=== PATIENT | female | born 1975 | race Two or more races ===

== ENCOUNTER 2020-02-22 11:28 | Outpatient (REF) | payer OTHER, SELFPAY | END 2020-02-22 11:29 | disposition home or self-care (01) | LOC: HO.LAB 11:28 | PROVIDERS: Visit Provider Internal Medicine | DX: Z20.828 Contact with and (suspected) exposure to other viral communicable diseases (principal) | CPT/HCPCS: C9803; U0003 ==

== ENCOUNTER 2020-03-06 10:32 | Outpatient (REF) | payer OTHER, SELFPAY | END 2020-03-06 10:33 | disposition home or self-care (01) | LOC: HO.LAB 10:32 | PROVIDERS: Visit Provider Internal Medicine | DX: Z20.822 Contact with and (suspected) exposure to COVID-19 (principal) | CPT/HCPCS: 36415; C9803; U0003 ==

== ENCOUNTER 2022-07-25 14:34 | Outpatient (REF) | payer OTHER, SELFPAY ==
--- NOTE | ~2022-07-25 | XR_ITS ---
EXAMINATION: Bilateral hand and wrist x-ray CLINICAL INFORMATION: Rheumatoid arthritis COMPARISON: None. TECHNIQUE: 3 views of each hand and wrist FINDINGS: Left: The bones are osteopenic. Bone alignment is normal. No fracture or dislocation. The joint spaces are normal. No erosions. Soft tissues are normal. Right: The bones are osteopenic. Bone alignment is normal. No fracture or dislocation. The joint spaces are normal. No erosions. Normal soft tissues. XR/XR hand wrist RT IMPRESSION: Osteopenia.
--- NOTE | ~2022-07-25 | XR_ITS ---
EXAMINATION: Bilateral shoulder x-ray CLINICAL INFORMATION: Rheumatoid arthritis COMPARISON: None. TECHNIQUE: 4 views of each shoulder FINDINGS: Right: Bone alignment is normal. No fracture or dislocation. Normal joint spaces. Normal soft tissues. Left: Bone alignment is normal. No fracture or dislocation. Normal glenohumeral joint. Mild arthritis at the acromioclavicular joint. Normal soft tissues. XR/XR shoulder LT min 2V IMPRESSION: Mild arthritis at the left acromioclavicular joint.
--- NOTE | ~2022-07-25 | XR_ITS ---
EXAMINATION: Bilateral foot and ankle x-ray CLINICAL INFORMATION: Rheumatoid arthritis COMPARISON: None. TECHNIQUE: 3 views of both feet and ankles FINDINGS: Right foot: Bone alignment is normal. No fracture or dislocation. Erosion of the third metacarpal head The joint spaces are normal. Small plantar calcaneal spur. Soft tissues are normal. Right ankle: Bone alignment is normal. No fracture or dislocation. Normal ankle mortise. Normal soft tissues. Left foot: Bone alignment is normal. Bones are osteopenic. There is erosion of the fourth metacarpal head. Joint spaces are normal. Soft tissues are normal. Left ankle: Bone alignment is normal. No fracture or dislocation. The ankle mortise is normal. Soft tissues are normal. XR/XR foot RT min 3V IMPRESSION: Right: Erosion of the third metacarpal head. Left: Erosion of the left fourth metacarpal head.
--- NOTE | ~2022-07-25 | XR_ITS ---
EXAMINATION: Bilateral foot and ankle x-ray CLINICAL INFORMATION: Rheumatoid arthritis COMPARISON: None. TECHNIQUE: 3 views of both feet and ankles FINDINGS: Right foot: Bone alignment is normal. No fracture or dislocation. Erosion of the third metacarpal head The joint spaces are normal. Small plantar calcaneal spur. Soft tissues are normal. Right ankle: Bone alignment is normal. No fracture or dislocation. Normal ankle mortise. Normal soft tissues. Left foot: Bone alignment is normal. Bones are osteopenic. There is erosion of the fourth metacarpal head. Joint spaces are normal. Soft tissues are normal. Left ankle: Bone alignment is normal. No fracture or dislocation. The ankle mortise is normal. Soft tissues are normal. XR/XR ankle RT min 3V IMPRESSION: Right: Erosion of the third metacarpal head. Left: Erosion of the left fourth metacarpal head.
--- NOTE | ~2022-07-25 | XR_ITS ---
EXAMINATION: Bilateral hand and wrist x-ray CLINICAL INFORMATION: Rheumatoid arthritis COMPARISON: None. TECHNIQUE: 3 views of each hand and wrist FINDINGS: Left: The bones are osteopenic. Bone alignment is normal. No fracture or dislocation. The joint spaces are normal. No erosions. Soft tissues are normal. Right: The bones are osteopenic. Bone alignment is normal. No fracture or dislocation. The joint spaces are normal. No erosions. Normal soft tissues. XR/XR hand wrist LT IMPRESSION: Osteopenia.
--- NOTE | ~2022-07-25 | XR_ITS ---
EXAMINATION: Bilateral foot and ankle x-ray CLINICAL INFORMATION: Rheumatoid arthritis COMPARISON: None. TECHNIQUE: 3 views of both feet and ankles FINDINGS: Right foot: Bone alignment is normal. No fracture or dislocation. Erosion of the third metacarpal head The joint spaces are normal. Small plantar calcaneal spur. Soft tissues are normal. Right ankle: Bone alignment is normal. No fracture or dislocation. Normal ankle mortise. Normal soft tissues. Left foot: Bone alignment is normal. Bones are osteopenic. There is erosion of the fourth metacarpal head. Joint spaces are normal. Soft tissues are normal. Left ankle: Bone alignment is normal. No fracture or dislocation. The ankle mortise is normal. Soft tissues are normal. XR/XR ankle LT min 3V IMPRESSION: Right: Erosion of the third metacarpal head. Left: Erosion of the left fourth metacarpal head.
--- NOTE | ~2022-07-25 | XR_ITS ---
EXAMINATION: Bilateral foot and ankle x-ray CLINICAL INFORMATION: Rheumatoid arthritis COMPARISON: None. TECHNIQUE: 3 views of both feet and ankles FINDINGS: Right foot: Bone alignment is normal. No fracture or dislocation. Erosion of the third metacarpal head The joint spaces are normal. Small plantar calcaneal spur. Soft tissues are normal. Right ankle: Bone alignment is normal. No fracture or dislocation. Normal ankle mortise. Normal soft tissues. Left foot: Bone alignment is normal. Bones are osteopenic. There is erosion of the fourth metacarpal head. Joint spaces are normal. Soft tissues are normal. Left ankle: Bone alignment is normal. No fracture or dislocation. The ankle mortise is normal. Soft tissues are normal. XR/XR foot LT min 3V IMPRESSION: Right: Erosion of the third metacarpal head. Left: Erosion of the left fourth metacarpal head.
--- NOTE | ~2022-07-25 | XR_ITS ---
EXAMINATION: Bilateral shoulder x-ray CLINICAL INFORMATION: Rheumatoid arthritis COMPARISON: None. TECHNIQUE: 4 views of each shoulder FINDINGS: Right: Bone alignment is normal. No fracture or dislocation. Normal joint spaces. Normal soft tissues. Left: Bone alignment is normal. No fracture or dislocation. Normal glenohumeral joint. Mild arthritis at the acromioclavicular joint. Normal soft tissues. XR/XR shoulder RT min 2V IMPRESSION: Mild arthritis at the left acromioclavicular joint.
== END 2022-07-25 14:35 | disposition home or self-care (01) ==
LOC: HO.XRAY 14:34
PROVIDERS: Visit Provider Student in an Organized Health Care Education/Training Program
DX: M05.79 Rheumatoid arthritis with rheumatoid factor of multiple sites without organ or systems involvement (principal)
CPT/HCPCS: 73030; 73110; 73130; 73610; 73630

== ENCOUNTER 2022-09-18 15:25 | Emergency (ER) | payer OTHER, SELFPAY ==
[2022-09-18 15:28] VITALS: BP 125/83; PULSE 97; RESP 16; TEMP 36.7; O2SAT 94; BMI 25.0
--- NOTE | 2022-09-18 15:28 | ED.GENADULT ---
HPI - General Adult General Chief complaint: General Medical Stated complaint: rash on hand Time Seen by Provider: 09/18/22 15:37 Source: patient and RN notes reviewed Mode of arrival: ambulatory Limitations: no limitations History of Present Illness HPI narrative: This is a 47-year-old female presenting to the emergency department with complaints of bilateral hand rash x3 days. Patient reports that the rash is very itchy, denies pain. She went to [facility] several days ago. Denies any fevers chills difficulty breathing, shortness of breath, rashes anywhere else. No abdominal pain nausea vomiting or diarrhea. She otherwise is feeling well. No other complaints or concerns at this time. MD complaint: Rash Onset (ago): day(s) Location: upper extremity Radiation: non-radiation Relieving factors: none Exacerbating factors: none Associated symptoms: rash Treatments prior to arrival: none Related Data Home Medications Medication Instructions Recorded Confirmed acetaminophen 325 mg tablet 325 mg PO QID PRN 07/16/22 (Tylenol) ferrous sulfate 325 mg (65 mg 325 mg PO BID 07/16/22 iron) tablet levothyroxine 50 mcg tablet 50 mcg PO DAILY 07/16/22 Previous Rx's Medication Instructions Recorded adalimumab 40 mg/0.4 mL 40 mg (0.4 mL) subcut Q2W #6 ea 07/25/22 subcutaneous pen kit (Humira(CF) Pen) prednisone 5 mg tablet See Rx Instructions PO .COMPLEX 07/25/22 #70 tabs clotrimazole 1 % topical ointment 1 appl topical BID 2 weeks #56.7 09/18/22 grams Allergies Allergy/AdvReac Type Severity Reaction Status Date / Time No Known Allergies Allergy Verified 09/18/22 15:27 Review of Systems Review of Systems: Constitutional: No Weight loss, No Fever, No Chills ENT/Mouth: No Ear Pain, No Nasal Congestion, No Sinus Pain, No Hoarseness, No sore throat, No Rhinorrhea, No Swallowing Difficulty Cardiovascular: No Chest Pain, No SOB Respiratory: No Cough, No Sputum, No Wheezing Gastrointestinal: No Nausea, No Vomiting, No Diarrhea, No Constipation, No Abdominal pain Genitourinary: No Dysuria, No Urinary Frequency, No Hematuria, No Urinary Incontinence/retention, No Urgency, No Flank Pain Musculoskeletal: No joint pain, No Myalgias, No Joint Swelling Skin: No Skin Lesions, + rash Neuro: No Weakness, No Numbness, No Paresthesias Yes all other systems are reviewed and are negative Constitutional: Constitutional: Reports as per [facility] Past Medical History Medical History Acquired hypothyroidism Anemia Rheumatoid arthritis Surgical History Hx of tubal ligation Family History Family History Maternal Grandmother No problems noted. Paternal Grandmother No problems noted. Sister Malignant tumor of breast, Onset Age: 39 Mother No problems noted. 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 [employer] Physical Exam ED Vital Signs: Vital Signs - 24 hr 09/18/22 15:28 Temperature 98.0 F Pulse Rate 97 Respiratory Rate 16 Blood Pressure 125/83 Pulse Oximetry 94 Oxygen Delivery Method Room Air BMI result Body Mass Index 25.0 Const General: cooperative, comfortable and no acute distress Orientation/consciousness: patient oriented x3 Limitations: no limitations [facility] Head: Yes normal to inspection, Yes normocephalic and Yes atraumatic Ears: hearing grossly normal bilaterally General nose exam: Normal external nose present Face and sinus: Yes normal facial exam Mouth: Normal oral and palatal mucosa present, oropharynx normal and moist mucous membranes Throat: Yes posterior oropharynx normal Eyes General: appearance normal, both eyes and all related structures Eyelids: Yes eyelids normal Conjunctivae: conjunctivae normal Sclerae: sclerae normal Pupils: Equal, round and reactive pupils present EOM: EOMs intact bilaterally Neck Neck: Yes normal visual inspection, Yes full ROM and Yes no lymphadenopathy Lymphatic: no lymphadenopathy noted Chest Chest palpation & inspection: normal inspection of the chest Resp Effort & Inspection: normal respiratory effort and able to speak in complete sentences Auscultation: clear to auscultation bilaterally, no crackles, no rales, no rhonchi and no wheezes Cardio Rate: regular rate Rhythm: regular rhythm Heart sounds: S1 normal heart sound present and S2 normal heart sound present GI Inspection: Yes normal to inspection Skin Other: Dorsal aspect bilateral hands with multiple circular raised 2 cm and rash with central clearing. Excoriations noted. No surrounding erythema or warmth. Neuro General: patient oriented x3 and moves all extremities Cranial nerves: Yes Equal, round and reactive pupils present Extrem General: Yes normal to inspection Right upper extremity: normal to inspection Left upper extremity: normal to inspection Right lower extremity: normal to inspection Left lower extremity: normal to inspection Medical Decision Making Medical Decision Making MDM Narrative: 47-year-old female presenting to the emergency department with complaints of bilateral hand rash x3 days. Recently traveled to . No new soaps, lotions, or detergents. Rash on bilateral hands rounded and raised, appears to be fungal. Patient has no difficulty swallowing or breathing. No other rashes anywhere else. Vital signs stable. No history of similar symptoms in the past. Will treat with topical antifungal. Discussed return precautions. Patient stable for discharge. Differential Diagnosis Differential Diagnoses: The differential diagnosis associated with the presentation includes tinea corporis, cellulitis, contact dermatitis, anaphylaxis Admission/Observation Consideration of admission/observation: Escalation of care including admission/observation considered Discharge Plan Discharge Clinical Impression: Tinea corporis, Rash Patient Disposition: Home, Self-Care Instructions: Tinea Corporis (ED) Additional Instructions: Your rash appears to be fungal. Please use topical antifungal cream as directed. This is contagious, please be mindful when exposing others. Wash her hands frequently. If any new or worsening symptoms occur, including but not limited to worsening rash, fevers, chills please return for re-evaluation. Follow-up with your primary care physician. Prescriptions: New clotrimazole 1 % ointment 1 appl topical BID 14 Days Qty: 56.7 0RF No Action levothyroxine 50 mcg tablet 50 mcg PO DAILY ferrous sulfate 325 mg (65 mg iron) tablet 325 mg PO BID acetaminophen [Tylenol] 325 mg tablet 325 mg PO QID PRN Humira(CF) Pen 40 mg/0.4 mL pen injector kit 40 mg subcut Q2W Qty: 6 2RF prednisone 5 mg tablet See Rx Instructions PO .COMPLEX Qty: 70 0RF Rx Instructions: Take 4 tabs by mouth once daily with breakfast for 1 week then 3 tabs daily for 1 week then 2 tabs daily for 1 week then 1 tab daily for 1 week then stop Interventions: ED Discharge Assessment Last Done: 09/18/22 15:50 Discharge Date/Time: 09/18/22 15:51
== END 2022-09-18 15:51 | disposition home or self-care (01) ==
PROVIDERS: Emergency Provider Emergency Medicine
DX: B35.4 Tinea corporis (principal); R21 Rash and other nonspecific skin eruption
CPT/HCPCS: 99282; 99283

== ENCOUNTER 2022-10-15 14:57 | Outpatient (REF) | payer OTHER, SELFPAY ==
[2022-10-15 15:23] LABS: MANUAL DIFF FLAG NO
[2022-10-15 15:25] LABS: Basophils Percent Auto 0.1 % (0-2); Eosinophils Absolute Auto 0.1 X10*3/uL (0.0-0.4); Eosinophils Percent Auto 1.1 % (0-4); Hematocrit 39.3 % (37.0-47.0); Hemoglobin 12.9 g/dl (12.0-16.0); Imm Gran Abs Auto 0.03 X10*3/uL (0.00-0.03); Imm Gran Pct Auto 0.4 % (0.0-0.4); Lymphocytes Absolute Auto 1.4 X10*3/uL (1.2-4.9); Lymphocytes Percent Auto 19.8 % (20-40); Mean Corpuscular HGB Conc 32.8 g/dl (31.0-35.0); Mean Corpuscular Hemoglobin 28.4 pg (27.0-33.0); Mean Corpuscular Volume 86.4 fL (80.0-98.0); Mean Platelet Volume 9.7 fL (9.4-12.3); Monocytes Absolute Auto 0.3 X10*3/uL (0.1-1.2); Monocytes Percent Auto 3.8 % (2-11); Neutrophils Absolute Auto 5.3 x10*3/uL (2.0-8.3); Neutrophils Percent Auto 74.8 % (45-73); Platelet Count 271 X10*3/uL (160-400); Red Blood Count 4.55 X10*6/uL (4.20-5.50); Red Cell Distribution Width 12.5 % (11.0-16.0); White Blood Count 7.1 X10*3/uL (4.8-10.8)
[2022-10-15 16:06] LABS: Alanine Aminotransferase 93 U/L (0-31); Alkaline Phosphatase 145 U/L (39-117); Anion Gap 11 (12-20); Aspartate Amino Transferase 48 U/L (5-31); Bilirubin Total 0.2 mg/dL (0.0-1.0); Blood Urea Nitrogen 13 mg/dL (9-16); Calcium 9.9 mg/dL (8.4-10.2); Carbon Dioxide 25 mmol/L (22-29); Chloride 108 mmol/L (96-108); Estimated Glomerular Filt Rate > 60; Glucose Random 188 mg/dL (60-115); Potassium 4.3 mmol/L (3.3-5.1); Sodium 140 mmol/L (135-145); Total Protein 7.8 g/dL (6.5-8.0)
[2022-10-15 16:31] LABS: Rheumatoid Factor 608.9 IU/mL (<15.0)
[2022-10-15 17:05] LABS: Erythrocyte Sedimentation Rate 23 MM/HR (0-20)
[2022-10-16 05:19] LABS: HBS Num1 0.07 mIU/mL (0-7.99); HBc Num1 0.11 S/CO (0.00-0.79); HBsAGNum1 0.43 S/CO (0.00-0.99); Hepatitis A Antibody IgM 0.47 Index (0-0.79); Hepatitis B Core Antibody Nonreactive (Nonreactive); Hepatitis B Surface Antigen Negative (Negative); ~HepC Num1 0.14 S/CO (0.00-0.79); ~Hepatitis A Antibody IgM Nonreactive (Nonreactive); ~Hepatitis B Surface Antibody NONREACTIVE (Nonreactive); ~Hepatitis C Antibody Nonreactive (Nonreactive)
[2022-10-16 12:24] LABS: Cyclic Citrullinated Peptide >250 UNITS
[2022-10-16 14:23] LABS: Prot Elec - Alpha1 0.3 g/dL (0.2-0.3); Prot Elec - Alpha2 0.6 g/dL (0.5-0.9); Prot Elec - Beta 1 0.4 g/dL (0.4-0.6); Prot Elec - Beta 2 0.4 g/dL (0.2-0.5); Prot Elec - Gamma 1.4 g/dL (0.8-1.7); Prot Elec - Total Protein 7.1 g/dL (6.1-8.1)
[2022-10-16 17:03] LABS: IgA 317 mg/dL (47-310); IgG 1632 mg/dL (600-1640); IgM 195 mg/dL (50-300)
[2022-10-17 12:23] LABS: TS Negative Control Passed; TS Panel A 1; TS Panel B 3; TS Positive Control Passed; TSpotTB Negative (Negative)
== END 2022-10-15 14:58 | disposition home or self-care (01) ==
LOC: HO.LAB 14:57
PROVIDERS: Visit Provider Student in an Organized Health Care Education/Training Program
DX: Z11.7 Encounter for testing for latent tuberculosis infection (principal); Z11.59 Encounter for screening for other viral diseases; M06.9 Rheumatoid arthritis, unspecified; Z72.89 Other problems related to lifestyle
CPT/HCPCS: 36415; 80053; 82784; 84165; 85025; 85652; 86140; 86200; 86334; 86431; 86481; 86704; 86706; 86709; 86803; 87340

== ENCOUNTER 2022-10-21 15:56 | Outpatient (AMB) | payer OTHER, SELFPAY ==
--- NOTE | 2022-10-21 15:58 | MHC.OFFVIS ---
Intake Vital Signs 10/21/22 15:59 Height 5 ft 3 in Weight 140 lb 3.424 oz BMI 24.8 BP 130/88 Blood Pressure Location Rt brachial Position Sitting Temp 97.4 F Temp Source Skin Intake Visit Reasons: Rheumatoid Arthritis Intake Note: Pt seen today for RA follow up. Shipping Processor Required: No Accompanied by: Self / Same As Patient Allergies No Known Allergies Allergy (Verified 10/21/22 16:03) Medication List - Last Reconciled 10/21/22 by Justo Avalos MD acetaminophen (Tylenol) 325 mg PO QID PRN adalimumab (Humira(CF) Pen) 40 mg (0.4 mL) subcut Q2W clotrimazole 1% 1 appl topical BID 2 weeks ferrous sulfate 325 mg PO BID levothyroxine 50 mcg PO DAILY prednisone 5 mg PO DAILY HPI HPI Comments History of Present Illness Details This is a 47-year-old female with seropositive RA who returns for follow-up. Last month she presented to the ER with a skin rash on her hands, the rash was deemed fungal which cleared with topical antifungal cream. She states that she is 1 week late on her Humira injection as she did not receive the refill. She has been taking prednisone 5 mg daily. Over the last week she has been having left wrist pain and swelling. She also has bilateral ankle pain. Doing well otherwise. Denies any recent illnesses or fevers. Denies any recent alcohol consumption. Initial history: This is a 47-year-old female with seropositive rheumatoid arthritis who presents as a new patient. 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 Patient stated that she was diagnosed with rheumatoid arthritis more than 10 years ago she. She was on Tylenol, NSAIDs and prednisone for many years until about 4 years ago when she was started on hydroxychloroquine which she could not tolerate due to GI upset, she was also on methotrexate for a few months and could not tolerated due to GI upset. She was started on Humira about 2 years ago which was effective and she no longer needed prednisone chronically. She would require prednisone tapers a few times a year. Today patient is complaining of bilateral shoulder pain and morning stiffness lasting around 30 minutes, this started about 3 weeks ago. She denies any side effects related to Humira. She denies any shortness of breath. She is unaware of any family history of autoimmune rheumatic disease. Denies history of DVT/PE. [facility] Medical History Acquired hypothyroidism Anemia Rheumatoid arthritis Surgical History Hx of tubal ligation Family History Maternal Grandmother No problems noted. Paternal Grandmother No problems noted. Sister Malignant tumor of breast, Onset Age: 39 Mother No problems noted. 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[employer] Review of Systems [facility] Reports arthralgias, Reports joint swelling and Reports stiffness Physical Exam Vital Signs: Last Vital Signs Temp 97.4 F 10/21/22 15:59 BP 130/88 10/21/22 15:59 BMI result Body Mass Index 24.8 Const General: cooperative, healthy appearing and comfortable Nutritional Appearance: average body habitus Orientation/consciousness: patient oriented x3 Limitations: no limitations HEENT Head: Yes normocephalic and Yes atraumatic Mouth: moist mucous membranes Resp Effort & Inspection: normal respiratory effort and able to speak in complete sentences Auscultation: clear to auscultation bilaterally Cardio Rate: regular rate Rhythm: regular rhythm GI Inspection: No distended Palpation (GI): Soft to palpation and nontender Neuro General: patient oriented x3 Extrem Other: Right wrist pain with full extension Right hand: no MCP or PIP tenderness. Negative MCP squeeze test. few subluxed PIPs Z deformities of her thumbs Left wrist swelling and tenderness Negative MCP squeeze test Normal range of motion of both elbows and shoulders. Negative empty can test, infraspinatus test bilaterally Right medial malleolus tenderness Negative MTP squeeze test bilaterally Results Reviewed Results Reviewed: FINDINGS: Right: Bone alignment is normal. No fracture or dislocation. Normal joint spaces. Normal soft tissues. Left: Bone alignment is normal. No fracture or dislocation. Normal glenohumeral joint. Mild arthritis at the acromioclavicular joint. Normal soft tissues.? XR/XR shoulder LT min 2V IMPRESSION: Mild arthritis at the left acromioclavicular joint.? ECHNIQUE: 3 views of each hand and wrist? FINDINGS: Left: The bones are osteopenic. Bone alignment is normal. No fracture or dislocation. The joint spaces are normal. No erosions. Soft tissues are normal. Right: The bones are osteopenic. Bone alignment is normal. No fracture or dislocation. The joint spaces are normal. No erosions. Normal soft tissues.? XR/XR hand wrist LT IMPRESSION: Osteopenia. XR/XR foot RT min 3V IMPRESSION: Right: Erosion of the third metacarpal head. Left: Erosion of the left fourth metacarpal head.? XR/XR ankle RT min 3V IMPRESSION: Right: Erosion of the third metacarpal head. Left: Erosion of the left fourth metacarpal head Assessment & Plan Assessment & Plan (1) Rheumatoid arthritis: Comment: +++RF+++ CCP erosive dx before 2011 NSAIDs, Tylenol and prednisone initially around 2018 MTX 4 months DC due GI upset around 2018 HCQ for few months GI upset Humira since 2020 effective Code(s): M06.9 - Rheumatoid arthritis, unspecified Qualifiers: Rheumatoid arthritis location: multiple sites Rheumatoid factor presence: with rheumatoid factor Qualified Code(s): M05.79 - Rheumatoid arthritis with rheumatoid factor of multiple sites without organ or systems involvement Plan: This is a 47-year-old female with seropositive erosive RA who presents for follow-up. Patient missed her Humira dose last week and she is having few swollen and tender joints. Humira prescription sent. Continue Humira 40 mg every other week. Continue prednisone 5 mg daily until Humira arrives then reduce to prednisone 2.5 mg daily for 2 weeks then stop prednisone Labs in 1 month Infectious screening: Hepatitis panel and T spot negative 2022 (2) Transaminitis: Code(s): R74.01 - Elevation of levels of liver transaminase levels Plan: Unclear cause. Patient denies any recent illnesses. No recent alcohol consumption. Will check repeat LFTs in 1 month. If still elevated will check RUQ US and refer to GI Plan I spent 26 minutes reviewing patient's chart, evaluating patient, ordering diagnostic workup, counseling patient and documenting in the chart Orders: Orders Complete Blood Count Auto Diff 1 Month M06.9 - Rheumatoid arthritis, unspecified Comprehensive Met. Panel 1 Month M06.9 - Rheumatoid arthritis, unspecified C Reactive Protein 1 Month M06.9 - Rheumatoid arthritis, unspecified Erythrocyte Sedimentation Rate 1 Month M06.9 - Rheumatoid arthritis, unspecified Creatine Kinase Total 1 Month R74.01 - Elevation of levels of liver transaminase levels Lactate Dehydrogenase 1 Month R74.01 - Elevation of levels of liver transaminase levels Medications: Refilled adalimumab (Humira(CF) Pen) 40 mg (0.4 mL) subcut Q2W 6 ea 2RF Coding Level of Care Code Est Pt Level 4 (74715) Diagnoses Rheumatoid arthritis M05.79 Rheumatoid arthritis location: multiple sites Rheumatoid factor presence: with rheumatoid factor Transaminitis R74.01
[2022-10-21 15:59] VITALS: BP 130/88; TEMP 36.3; BMI 24.8
== END 2022-10-21 16:19 | disposition home or self-care (01) ==
PROVIDERS: PCP Nurse Practitioner Adult Health; Visit Provider Student in an Organized Health Care Education/Training Program
DX: M05.79 Rheumatoid arthritis with rheumatoid factor of multiple sites without organ or systems involvement (principal); R74.01 Elevation of levels of liver transaminase levels
CPT/HCPCS: 99214

== ENCOUNTER → 2022-10-21 15:56 | Outpatient (BNVA) | payer OTHER, SELFPAY | PROVIDERS: Visit Provider Student in an Organized Health Care Education/Training Program ==

== ENCOUNTER 2023-01-30 16:43 | Outpatient (REF) | payer OTHER, SELFPAY ==
[2023-01-30 16:52] LABS: MANUAL DIFF FLAG NO
[2023-01-30 17:32] LABS: Basophils Percent Auto 0.3 % (0-2); Eosinophils Absolute Auto 0.4 X10*3/uL (0.0-0.4); Eosinophils Percent Auto 6.3 % (0-4); Hemoglobin 12.9 g/dl (12.0-16.0); Imm Gran Abs Auto 0.02 X10*3/uL (0.00-0.03); Imm Gran Pct Auto 0.3 % (0.0-0.4); Lymphocytes Absolute Auto 2.5 X10*3/uL (1.2-4.9); Lymphocytes Percent Auto 40.8 % (20-40); Mean Corpuscular HGB Conc 32.3 g/dl (31.0-35.0); Mean Corpuscular Hemoglobin 27.9 pg (27.0-33.0); Mean Corpuscular Volume 86.6 fL (80.0-98.0); Mean Platelet Volume 9.9 fL (9.4-12.3); Monocytes Absolute Auto 0.5 X10*3/uL (0.1-1.2); Neutrophils Absolute Auto 2.8 x10*3/uL (2.0-8.3); Neutrophils Percent Auto 44.3 % (45-73); Platelet Count 331 X10*3/uL (160-400); Red Blood Count 4.62 X10*6/uL (4.20-5.50); Red Cell Distribution Width 12.6 % (11.0-16.0); White Blood Count 6.2 X10*3/uL (4.8-10.8)
[2023-01-30 18:04] LABS: Alanine Aminotransferase 32 U/L (0-31); Albumin Level 4.2 g/dL (3.5-5.0); Alkaline Phosphatase 144 U/L (39-117); Anion Gap 10 (12-20); Aspartate Amino Transferase 22 U/L (5-31); Bilirubin Total 0.2 mg/dL (0.0-1.0); Blood Urea Nitrogen 12 mg/dL (9-16); C Reactive Protein 0.69 mg/dL (< or = 0.50); Calcium 9.9 mg/dL (8.4-10.2); Carbon Dioxide 28 mmol/L (22-29); Chloride 107 mmol/L (96-108); Estimated Glomerular Filt Rate > 60; Glucose Random 138 mg/dL (60-115); Lactate Dehydrogenase 193 U/L (122-220); Potassium 3.6 mmol/L (3.3-5.1); Sodium 141 mmol/L (135-145); Total Protein 7.9 g/dL (6.5-8.0)
[2023-01-30 18:09] LABS: Erythrocyte Sedimentation Rate 19 MM/HR (0-20)
== END 2023-01-30 16:44 | disposition home or self-care (01) ==
LOC: HO.LAB 16:43
PROVIDERS: Visit Provider Student in an Organized Health Care Education/Training Program
DX: M06.9 Rheumatoid arthritis, unspecified (principal); R74.01 Elevation of levels of liver transaminase levels
CPT/HCPCS: 36415; 80053; 82550; 83615; 85025; 85652; 86140

== ENCOUNTER 2023-02-06 16:04 | Outpatient (AMB) | payer OTHER, SELFPAY ==
--- NOTE | 2023-02-06 16:08 | MHC.OFFVIS ---
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 On Humira every other week. Well tolerated. Discontinued prednisone since she received her Humira shipment in October. Doing well overall with no joint pain or swelling. Initial history: This is a 47-year-old female with seropositive rheumatoid arthritis who presents as a new patient. 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 Patient stated that she was diagnosed with rheumatoid arthritis more than 10 years ago she. She was on Tylenol, NSAIDs and prednisone for many years until about 4 years ago when she was started on hydroxychloroquine which she could not tolerate due to GI upset, she was also on methotrexate for a few months and could not tolerated due to GI upset. She was started on Humira about 2 years ago which was effective and she no longer needed prednisone chronically. She would require prednisone tapers a few times a year. Today patient is complaining of bilateral shoulder pain and morning stiffness lasting around 30 minutes, this started about 3 weeks ago. She denies any side effects related to Humira. She denies any shortness of breath. She is unaware of any family history of autoimmune rheumatic disease. Denies history of DVT/PE. [facility] Medical History Rheumatoid arthritis Anemia Acquired hypothyroidism Surgical History Hx of tubal ligation Family History Maternal Grandmother No problems noted. Paternal Grandmother No problems noted. Sister Malignant tumor of breast, Onset Age: 39 Mother No problems noted. 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 Systems Musc Denies arthralgias, Denies joint swelling and Denies stiffness Physical Exam Vital Signs: Last Vital Signs Temp 98.6 F 02/06/23 16:09 Pulse 68 02/06/23 16:09 BP 124/88 02/06/23 16:09 Pulse Ox 98 02/06/23 16:09 Oxygen Delivery Method Room Air 02/06/23 16:09 BMI result Body Mass Index 23.6 Const General: cooperative, healthy appearing and comfortable Nutritional Appearance: average body habitus Orientation/consciousness: patient oriented x3 Limitations: no limitations HEENT Head: Yes normocephalic and Yes atraumatic Resp Effort & Inspection: normal respiratory effort and able to speak in complete sentences Auscultation: clear to auscultation bilaterally Cardio Rate: regular rate Rhythm: regular rhythm GI Inspection: No distended Palpation (GI): Soft to palpation and nontender Neuro General: patient oriented x3 Extrem Other: Right wrist , mild swelling, no tenderness no pain with flexion and extension Right hand: no MCP or PIP tenderness. Negative MCP squeeze test. few subluxed PIPs Z deformities of her thumbs Minor left wrist tenderness at the ulnar styloid with wrist flexion and extension Left 3rd MCP synovial thickening without tenderness Negative MCP squeeze test Normal range of motion of both elbows and shoulders. No ankle swelling or tenderness bilaterally Negative MTP squeeze test bilaterally Results Reviewed Results Reviewed: X-rays 06/2022 FINDINGS: Right: Bone alignment is normal. No fracture or dislocation. Normal joint spaces. Normal soft tissues. Left: Bone alignment is normal. No fracture or dislocation. Normal glenohumeral joint. Mild arthritis at the acromioclavicular joint. Normal soft tissues.? XR/XR shoulder LT min 2V IMPRESSION: Mild arthritis at the left acromioclavicular joint.? ECHNIQUE: 3 views of each hand and wrist? FINDINGS: Left: The bones are osteopenic. Bone alignment is normal. No fracture or dislocation. The joint spaces are normal. No erosions. Soft tissues are normal. Right: The bones are osteopenic. Bone alignment is normal. No fracture or dislocation. The joint spaces are normal. No erosions. Normal soft tissues.? XR/XR hand wrist LT IMPRESSION: Osteopenia. XR/XR foot RT min 3V IMPRESSION: Right: Erosion of the third metacarpal head. Left: Erosion of the left fourth metacarpal head.? XR/XR ankle RT min 3V IMPRESSION: Right: Erosion of the third metacarpal head. Left: Erosion of the left fourth metacarpal head Assessment & Plan Assessment & Plan (1) Rheumatoid arthritis: Comment: +++RF+++ CCP erosive dx before 2011 NSAIDs, Tylenol and prednisone initially around 2018 MTX 4 months DC due GI upset around 2017 HCQ for few months GI upset Humira since 2020 effective Code(s): M06.9 - Rheumatoid arthritis, unspecified Qualifiers: Rheumatoid arthritis location: multiple sites Rheumatoid factor presence: with rheumatoid factor Qualified Code(s): M05.79 - Rheumatoid arthritis with rheumatoid factor of multiple sites without organ or systems involvement Plan: This is a 47-year-old female with seropositive erosive RA who presents for follow-up. Doing very well on Humira every other week Continue Humira 40 mg every other week Infectious screening: Hepatitis panel and T spot negative 2022 Labs before next visit in 3 months (2) Transaminitis: Code(s): R74.01 - Elevation of levels of liver transaminase levels Plan: Transaminitis on labs 09/2022 Unclear cause. Patient denies any recent illnesses. No recent alcohol consumption. Her transaminitis is trending down. Will continue to monitor, check autoimmune hepatitis antibodies with next set of labs (3) Immunization counseling: Code(s): Z71.85 - Encounter for immunization safety counseling Plan: Advised patient to get new COVID booster and flu vaccine for this season. No need to hold Humira Plan I spent 26 minutes reviewing patient's chart, evaluating patient, ordering diagnostic workup, counseling patient and documenting in the chart Orders: Orders Comprehensive Met. Panel 3 Months M06.9 - Rheumatoid arthritis, unspecified C Reactive Protein 3 Months M06.9 - Rheumatoid arthritis, unspecified Creatine Kinase Total 3 Months R74.01 - Elevation of levels of liver transaminase levels Liver Kidney Microsomal Ab 3 Months R74.01 - Elevation of levels of liver transaminase levels Mitochondrial Antibody 3 Months R74.01 - Elevation of levels of liver transaminase levels Smooth Muscle Antibody 3 Months R74.01 - Elevation of levels of liver transaminase levels Complete Blood Count Auto Diff 3 Months M06.9 - Rheumatoid arthritis, unspecified Erythrocyte Sedimentation Rate 3 Months M06.9 - Rheumatoid arthritis, unspecified Gamma Glutamyl Transpeptidase 3 Months R74.01 - Elevation of levels of liver transaminase levels Coding Level of Care Code Est Pt Level 4 (80146) Diagnoses Rheumatoid arthritis involving multiple sites with positive rheumatoid factor M05.79 Rheumatoid arthritis location: multiple sites Rheumatoid factor presence: with rheumatoid factor Transaminitis R74.01 Immunization counseling Z71.85
[2023-02-06 16:09] VITALS: BP 124/88; PULSE 68; TEMP 37; O2SAT 98; BMI 23.6
== END 2023-02-06 16:30 | disposition home or self-care (01) ==
PROVIDERS: Visit Provider Student in an Organized Health Care Education/Training Program
DX: M05.79 Rheumatoid arthritis with rheumatoid factor of multiple sites without organ or systems involvement (principal); R74.01 Elevation of levels of liver transaminase levels; Z71.85 Encounter for immunization safety counseling
CPT/HCPCS: 99214

== ENCOUNTER → 2023-02-06 16:04 | Outpatient (BNVA) | payer OTHER, SELFPAY | PROVIDERS: Visit Provider Student in an Organized Health Care Education/Training Program ==

== ENCOUNTER 2023-05-14 16:07 | Outpatient (AMB) | payer OTHER, SELFPAY ==
[2023-05-14 16:14] VITALS: BP 112/64; PULSE 89; O2SAT 97; BMI 23.8
--- NOTE | 2023-05-14 16:14 | MHC.OFFVIS ---
Intake Vital Signs 05/14/23 16:14 Height 5 ft 3 in Weight 134 lb 7.712 oz BMI 23.8 BP 112/64 Blood Pressure Location Rt brachial Position Sitting Pulse 89 Pulse Source Pulse Oximeter Pulse Oximetry (%) 97 Oxygen Delivery Method Room Air Intake Visit Reasons: RA Intake Note: Patient last seen 02/06/23 presents today for follow up and test results. Allergies No Known Allergies Allergy (Verified 05/14/23 16:16) Medication List - Last Reconciled 05/14/23 by Justo Avalos MD acetaminophen (Tylenol) 325 mg PO QID PRN adalimumab (Humira(CF) Pen) 40 mg (0.4 mL) subcut Q2W clotrimazole 1% 1 appl topical BID 2 weeks ferrous sulfate 325 mg PO BID levothyroxine 50 mcg PO DAILY HPI HPI Comments History of Present Illness Details This is a 48-year-old female with seropositive RA who returns for follow-up. On Humira every other week. Well tolerated. She states that she is doing very well overall except for some left wrist pain, mild swelling and stiffness. Initial history: This is a 47-year-old female with seropositive rheumatoid arthritis who presents as a new patient. 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 Patient stated that she was diagnosed with rheumatoid arthritis more than 10 years ago she. She was on Tylenol, NSAIDs and prednisone for many years until about 4 years ago when she was started on hydroxychloroquine which she could not tolerate due to GI upset, she was also on methotrexate for a few months and could not tolerated due to GI upset. She was started on Humira about 2 years ago which was effective and she no longer needed prednisone chronically. She would require prednisone tapers a few times a year. Today patient is complaining of bilateral shoulder pain and morning stiffness lasting around 30 minutes, this started about 3 weeks ago. She denies any side effects related to Humira. She denies any shortness of breath. She is unaware of any family history of autoimmune rheumatic disease. Denies history of DVT/PE. [facility] Medical History Rheumatoid arthritis Anemia Acquired hypothyroidism Surgical History Hx of tubal ligation Family History Maternal Grandmother No problems noted. Paternal Grandmother No problems noted. Sister Malignant tumor of breast, Onset Age: 39 Mother No problems noted. 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[employer] Review of Systems Musc Reports arthralgias, Reports joint swelling, Reports limited range of motion and Reports stiffness Physical Exam Vital Signs: Last Vital Signs Pulse 89 05/14/23 16:14 BP 112/64 05/14/23 16:14 Pulse Ox 97 05/14/23 16:14 Oxygen Delivery Method Room Air 05/14/23 16:14 BMI result Body Mass Index 23.8 Const General: cooperative, healthy appearing and comfortable Nutritional Appearance: average body habitus Orientation/consciousness: patient oriented x3 Limitations: no limitations HEENT Head: Yes normocephalic and Yes atraumatic Resp Effort & Inspection: normal respiratory effort and able to speak in complete sentences Auscultation: clear to auscultation bilaterally Cardio Rate: regular rate Rhythm: regular rhythm GI Inspection: No distended Palpation (GI): Soft to palpation and nontender Neuro General: patient oriented x3 Extrem Other: Right wrist, no tenderness no pain with flexion and extension Right hand: no MCP or PIP tenderness. Negative MCP squeeze test. few subluxed PIPs Z deformities of her thumbs Left wrist: Mild swelling, tenderness and pain with flexion and extension Left 3rd MCP synovial thickening without tenderness Negative MCP squeeze test Normal range of motion of both elbows and shoulders. No ankle swelling or tenderness bilaterally Negative MTP squeeze test bilaterally Results Reviewed Results Reviewed: X-rays 06/2022 FINDINGS: Right: Bone alignment is normal. No fracture or dislocation. Normal joint spaces. Normal soft tissues. Left: Bone alignment is normal. No fracture or dislocation. Normal glenohumeral joint. Mild arthritis at the acromioclavicular joint. Normal soft tissues.? XR/XR shoulder LT min 2V IMPRESSION: Mild arthritis at the left acromioclavicular joint.? ECHNIQUE: 3 views of each hand and wrist? FINDINGS: Left: The bones are osteopenic. Bone alignment is normal. No fracture or dislocation. The joint spaces are normal. No erosions. Soft tissues are normal. Right: The bones are osteopenic. Bone alignment is normal. No fracture or dislocation. The joint spaces are normal. No erosions. Normal soft tissues.? XR/XR hand wrist LT IMPRESSION: Osteopenia. XR/XR foot RT min 3V IMPRESSION: Right: Erosion of the third metacarpal head. Left: Erosion of the left fourth metacarpal head.? XR/XR ankle RT min 3V IMPRESSION: Right: Erosion of the third metacarpal head. Left: Erosion of the left fourth metacarpal head Assessment & Plan Assessment & Plan (1) Rheumatoid arthritis: Comment: +++RF+++ CCP erosive dx before 2011 NSAIDs, Tylenol and prednisone initially around 2018 MTX 4 months DC due GI upset around 2017 HCQ for few months GI upset Humira since 2020 effective Code(s): M06.9 - Rheumatoid arthritis, unspecified Qualifiers: Rheumatoid arthritis location: multiple sites Rheumatoid factor presence: with rheumatoid factor Qualified Code(s): M05.79 - Rheumatoid arthritis with rheumatoid factor of multiple sites without organ or systems involvement Plan: This is a 47-year-old female with seropositive erosive RA who presents for follow-up. Doing very well overall except for mild left wrist synovitis. Start naproxen 500 mg Twice daily for 1 week then 500 mg daily for 1 week then use as needed. If no improvement over the coming few weeks, advised patient to call the office for an injection Continue Humira 40 mg every other week Infectious screening: Hepatitis panel and T spot negative 2022 Labs before next visit in 3 months (2) Transaminitis: Code(s): R74.01 - Elevation of levels of liver transaminase levels Plan: Will continue to monitor, will check autoimmune hepatitis panel (3) High risk medication use: Code(s): Z79.899 - Other long-term (current) drug therapy Plan: Side effects of Humira were discussed with the patient in detail including increased risk of infection, demyelinating disease, reactivation of latent TB, possible increased risk of solid and skin tumors. Patient fully aware. Advised patient to seek medical care MADISYN if patient has an infection and advised patient to stop the medication until the infection is resolved. Plan I spent 26 minutes reviewing patient's chart, evaluating patient, ordering diagnostic workup, counseling patient and documenting in the chart Orders: Orders Complete Blood Count Auto Diff 3 Months M06.9 - Rheumatoid arthritis, unspecified Creatine Kinase Total 3 Months M06.9 - Rheumatoid arthritis, unspecified Liver Kidney Microsomal Ab 3 Months R74.01 - Elevation of levels of liver transaminase levels Comprehensive Met. Panel 3 Months M06.9 - Rheumatoid arthritis, unspecified C Reactive Protein 3 Months M06.9 - Rheumatoid arthritis, unspecified Erythrocyte Sedimentation Rate 3 Months M06.9 - Rheumatoid arthritis, unspecified Gamma Glutamyl Transpeptidase 3 Months R74.01 - Elevation of levels of liver transaminase levels Mitochondrial Antibody 3 Months R74.01 - Elevation of levels of liver transaminase levels Smooth Muscle Antibody 3 Months R74.01 - Elevation of levels of liver transaminase levels Medications: New naproxen Take 1 tab twice daily for 1 week then 1 tab daily for 1 week then use 1 tab once daily as needed for joint pain 30 tabs 1RF Refilled adalimumab (Humira(CF) Pen) 40 mg (0.4 mL) subcut Q2W 6 ea 1RF Coding Level of Care Code Est Pt Level 4 (16970) Diagnoses Rheumatoid arthritis involving multiple sites with positive rheumatoid factor M05.79 Rheumatoid arthritis location: multiple sites Rheumatoid factor presence: with rheumatoid factor Transaminitis R74.01 High risk medication use Z79.899
== END 2023-05-14 16:34 | disposition home or self-care (01) ==
PROVIDERS: PCP Nurse Practitioner Adult Health; Visit Provider Student in an Organized Health Care Education/Training Program
DX: M05.79 Rheumatoid arthritis with rheumatoid factor of multiple sites without organ or systems involvement (principal); R74.01 Elevation of levels of liver transaminase levels; Z79.899 Other long term (current) drug therapy
CPT/HCPCS: 99214

== ENCOUNTER → 2023-05-14 16:07 | Outpatient (BNVA) | payer OTHER, SELFPAY | PROVIDERS: PCP Nurse Practitioner Adult Health; Visit Provider Student in an Organized Health Care Education/Training Program ==

== ENCOUNTER 2023-06-25 12:53 | Outpatient (AMB) | payer OTHER, SELFPAY ==
--- NOTE | 2023-06-25 12:58 | A.OFFVIS_ITS ---
Vital Signs 06/25/23 13:05 Height 5 ft 3 in Weight 134 lb 0.657 oz BMI 23.7 BP 136/70 Blood Pressure Location Rt brachial Position Sitting Pulse 92 Pulse Source Pulse Oximeter Pulse Oximetry (%) 98 Oxygen Delivery Method Room Air Intake Visit Reasons: Wrist Pain/ injection Intake Note: Pt presents today with complaints of left wrist pain. Requesting injection Clinical Resource Director Required: No Accompanied by: Self / Same As Patient Allergies No Known Allergies Allergy (Verified 06/25/23 13:05) Medication List - Last Reconciled 06/25/23 by Justo Avalos MD acetaminophen (Tylenol) 325 mg PO QID PRN adalimumab (Humira(CF) Pen) 40 mg (0.4 mL) subcut Q2W clotrimazole 1% 1 appl topical BID 2 weeks ferrous sulfate 325 mg PO BID levothyroxine 50 mcg PO DAILY HPI Comments Details: This is a 48-year-old female with seropositive RA who returns for follow-up. On Humira every other week. Well tolerated. Patient's RA has been doing well. However her left wrist has been problematic history of left wrist pain and swelling. Last visit a month ago I prescribed her a course of naproxen. It was not helpful. Today patient is in clinic requesting left wrist injection. She has never had injections in her hands or wrists before but had it in her knees and they were uneventful Initial history: This is a 47-year-old female with seropositive rheumatoid arthritis who presents as a new patient. 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 Patient stated that she was diagnosed with rheumatoid arthritis more than 10 years ago she. She was on Tylenol, NSAIDs and prednisone for many years until about 4 years ago when she was started on hydroxychloroquine which she could not tolerate due to GI upset, she was also on methotrexate for a few months and could not tolerated due to GI upset. She was started on Humira about 2 years ago which was effective and she no longer needed prednisone chronically. She would require prednisone tapers a few times a year. Today patient is complaining of bilateral shoulder pain and morning stiffness lasting around 30 minutes, this started about 3 weeks ago. She denies any side effects related to Humira. She denies any shortness of breath. She is unaware of any family history of autoimmune rheumatic disease. Denies history of DVT/PE. [facility] Medical History Rheumatoid arthritis Anemia Acquired hypothyroidism Surgical History Hx of tubal ligation Family History Maternal Grandmother No problems noted. Paternal Grandmother No problems noted. Sister Malignant tumor of breast, Onset Age: 39 Mother No problems noted. 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 Systems Musc Reports arthralgias, Reports joint swelling, Reports limited range of motion and Reports stiffness Physical Exam Vital Signs: Last Vital Signs Pulse 92 06/25/23 13:05 BP 136/70 06/25/23 13:05 Pulse Ox 98 06/25/23 13:05 Oxygen Delivery Method Room Air 06/25/23 13:05 BMI result Body Mass Index 23.7 Const General: cooperative, healthy appearing and comfortable Nutritional Appearance: average body habitus Orientation/consciousness: patient oriented x3 Limitations: no limitations HEENT Head: Yes normocephalic and Yes atraumatic Resp Effort & Inspection: normal respiratory effort and able to speak in complete sentences Neuro General: patient oriented x3 Extrem Other: Right wrist, no tenderness no pain with flexion and extension Right hand: no MCP or PIP tenderness. Negative MCP squeeze test. few subluxed PIPs Z deformities of her thumbs Left wrist: Mild swelling, tenderness and pain with flexion and extension Left 3rd MCP synovial thickening without tenderness Negative MCP squeeze test Normal range of motion of both elbows and shoulders. No ankle swelling or tenderness bilaterally Negative MTP squeeze test bilaterally Office Procedures Joint Injection/Drain Joint Injection/Drain Details: Left wrist Prep: site was prepped using sterile technique and ethochloride spray was applied Injected: 20 mg of, Kenalog and other (0.1 mL of 1% lidocaine) Approach Used: other Procedure: The patient tolerated the procedure well, but had some pain with the injection and there was some relief with the local anesthesia Coding Details: The area over the dorsum of the left wrist was prepped with ChloraPrep then using a 27 gauge needle 20 mg of Kenalog mixed with 0.1 cc of 1% lidocaine was injected into the wrist joint space. The patient tolerated the procedure well with no immediate adverse events 11172 - Medium joint Procedure code (CPT) selection complete Results Reviewed Results Reviewed: X-rays 06/2022 FINDINGS: Right: Bone alignment is normal. No fracture or dislocation. Normal joint spaces. Normal soft tissues. Left: Bone alignment is normal. No fracture or dislocation. Normal glenohumeral joint. Mild arthritis at the acromioclavicular joint. Normal soft tissues.? XR/XR shoulder LT min 2V IMPRESSION: Mild arthritis at the left acromioclavicular joint.? ECHNIQUE: 3 views of each hand and wrist? FINDINGS: Left: The bones are osteopenic. Bone alignment is normal. No fracture or dislocation. The joint spaces are normal. No erosions. Soft tissues are normal. Right: The bones are osteopenic. Bone alignment is normal. No fracture or dislocation. The joint spaces are normal. No erosions. Normal soft tissues.? XR/XR hand wrist LT IMPRESSION: Osteopenia. XR/XR foot RT min 3V IMPRESSION: Right: Erosion of the third metacarpal head. Left: Erosion of the left fourth metacarpal head.? XR/XR ankle RT min 3V IMPRESSION: Right: Erosion of the third metacarpal head. Left: Erosion of the left fourth metacarpal head Assessment & Plan Assessment & Plan (1) Rheumatoid arthritis: Comment: +++RF+++ CCP erosive dx before 2011 NSAIDs, Tylenol and prednisone initially around 2018 MTX 4 months DC due GI upset around 2018 HCQ for few months GI upset Humira since 2020 effective Code(s): M06.9 - Rheumatoid arthritis, unspecified Category: Medical Qualifiers: Rheumatoid arthritis location: multiple sites Rheumatoid factor presence: with rheumatoid factor Qualified Code(s): M05.79 - Rheumatoid arthritis with rheumatoid factor of multiple sites without organ or systems involvement Plan: This is a 47-year-old female with seropositive erosive RA who presents for follow-up. Doing very well overall except for mild left wrist synovitis. It did not improve with a course of Aleve. Today patient is in clinic requesting left wrist injection. With patient's consent. Left wrist was injected with Kenalog Continue Humira 40 mg every other week Infectious screening: Hepatitis panel and T spot negative 2022 Labs before next visit in 2 months Plan I spent 16 minutes reviewing patient's chart, evaluating patient, counseling patient and documenting in the chart Orders: Orders AMB Joint Injection/Aspiration Today M05.79 - Rheumatoid arthritis with rheumatoid factor of multiple sites without organ or systems involvement Coding Level of Care Code Est Pt Level 3 (86550) Diagnoses Rheumatoid arthritis involving multiple sites with positive rheumatoid factor M05.79 Rheumatoid arthritis location: multiple sites Rheumatoid factor presence: with rheumatoid factor CPT Codes Coding - 00838 Medium joint: 32488 - Medium joint ([id number])
[2023-06-25 13:05] VITALS: BP 136/70; PULSE 92; O2SAT 98; BMI 23.7
== END 2023-06-25 13:15 | disposition home or self-care (01) ==
PROVIDERS: PCP Nurse Practitioner Adult Health; Visit Provider Student in an Organized Health Care Education/Training Program
DX: M05.79 Rheumatoid arthritis with rheumatoid factor of multiple sites without organ or systems involvement (principal); M65.132 Other infective (teno)synovitis, left wrist
CPT/HCPCS: 20605; 99213

== ENCOUNTER → 2023-06-25 12:53 | Outpatient (BNVA) | payer OTHER, SELFPAY | PROVIDERS: PCP Nurse Practitioner Adult Health; Visit Provider Student in an Organized Health Care Education/Training Program | DX: M05.79 Rheumatoid arthritis with rheumatoid factor of multiple sites without organ or systems involvement (principal); M25.532 Pain in left wrist; Z79.620 Long term (current) use of immunosuppressive biologic | CPT/HCPCS: 20605; J3301 ==

== ENCOUNTER 2023-08-18 13:24 | Outpatient (REF) | payer OTHER, SELFPAY ==
[2023-08-18 13:40] LABS: MANUAL DIFF FLAG NO
[2023-08-18 14:40] LABS: Basophils Percent Auto 0.4 % (0-2); Eosinophils Absolute Auto 0.6 X10*3/uL (0.0-0.4); Eosinophils Percent Auto 9.4 % (0-4); Hematocrit 38.2 % (37.0-47.0); Hemoglobin 12.6 g/dl (12.0-16.0); Imm Gran Abs Auto 0.02 X10*3/uL (0.00-0.03); Imm Gran Pct Auto 0.3 % (0.0-0.4); Lymphocytes Absolute Auto 2.4 X10*3/uL (1.2-4.9); Lymphocytes Percent Auto 35.9 % (20-40); Mean Corpuscular Hemoglobin 28.4 pg (27.0-33.0); Mean Platelet Volume 10.3 fL (9.4-12.3); Monocytes Absolute Auto 0.5 X10*3/uL (0.1-1.2); Neutrophils Absolute Auto 3.2 x10*3/uL (2.0-8.3); Platelet Count 348 X10*3/uL (160-400); Red Blood Count 4.44 X10*6/uL (4.20-5.50); White Blood Count 6.7 X10*3/uL (4.8-10.8)
[2023-08-18 15:03] LABS: Alanine Aminotransferase 39 U/L (0-31); Albumin Level 4.1 g/dL (3.5-5.0); Alkaline Phosphatase 119 U/L (39-117); Anion Gap 12 (12-20); Aspartate Amino Transferase 24 U/L (5-31); Bilirubin Total 0.2 mg/dL (0.0-1.0); Blood Urea Nitrogen 11 mg/dL (9-16); C Reactive Protein 0.22 mg/dL (< or = 0.50); Calcium 10.1 mg/dL (8.4-10.2); Carbon Dioxide 25 mmol/L (22-29); Chloride 106 mmol/L (96-108); Estimated Glomerular Filt Rate > 60; Gamma Glutamyl Transpeptidase 35 U/L (7-33); Glucose Random 142 mg/dL (60-115); Potassium 3.8 mmol/L (3.3-5.1); Sodium 139 mmol/L (135-145); Total Protein 7.5 g/dL (6.5-8.0)
[2023-08-18 15:24] LABS: Erythrocyte Sedimentation Rate 16 MM/HR (0-20)
[2023-08-20 10:03] LABS: Mitochondrial Antibodies NEGATIVE (NEGATIVE)
[2023-08-24 09:08] LABS: Smooth Muscle Antibody <20 U (<20)
[2023-08-24 14:13] LABS: Liver Kidney Microsomal Ab <=20.0 U (<=20.0)
== END 2023-08-18 13:25 | disposition home or self-care (01) ==
LOC: HO.LAB 13:24
PROVIDERS: PCP Nurse Practitioner Adult Health; Visit Provider Student in an Organized Health Care Education/Training Program
DX: R74.01 Elevation of levels of liver transaminase levels (principal); M06.9 Rheumatoid arthritis, unspecified
CPT/HCPCS: 36415; 80053; 82550; 82977; 85025; 85652; 86015; 86140; 86376; 86381

== ENCOUNTER 2023-08-20 12:54 | Outpatient (AMB) | payer OTHER, SELFPAY ==
[2023-08-20 12:55] VITALS: BP 114/78; PULSE 95; O2SAT 99
--- NOTE | 2023-08-20 12:55 | MHC.OFFVIS ---
Vital Signs 08/20/23 12:55 Height 53 ft Weight 136 lb 0.403 oz BMI 0.2 BP 114/78 Blood Pressure Location Rt brachial Position Sitting Pulse 95 Pulse Source Pulse Oximeter Pulse Oximetry (%) 99 Oxygen Delivery Method Room Air Intake Visit Reasons: RA/cm Allergies No Known Allergies Allergy (Verified 08/20/23 12:57) Medication List - Last Reconciled 08/20/23 by Justo Avalos MD acetaminophen (Tylenol) 325 mg PO QID PRN adalimumab (Humira(CF) Pen) 40 mg (0.4 mL) subcut Q2W clotrimazole 1% 1 appl topical BID 2 weeks ferrous sulfate 325 mg PO BID levothyroxine 50 mcg PO DAILY HPI Comments Details: This is a 48-year-old female with seropositive RA who returns for follow-up. On Humira every other week. Well tolerated. Patient's RA has been doing well. Left wrist injection done last visit was quite helpful. She states that she gets intermittent migratory joint pain involving different joints but overall her symptoms very minimal. She takes Tylenol once or twice daily every other day as needed for joint pain. Today she is having some mild left ankle pain. Initial history: This is a 47-year-old female with seropositive rheumatoid arthritis who presents as a new patient. Her previous material lister left the practice. Patient stated that she was diagnosed with rheumatoid arthritis more than 10 years ago she. She was on Tylenol, NSAIDs and prednisone for many years until about 4 years ago when she was started on hydroxychloroquine which she could not tolerate due to GI upset, she was also on methotrexate for a few months and could not tolerated due to GI upset. She was started on Humira about 2 years ago which was effective and she no longer needed prednisone chronically. She would require prednisone tapers a few times a year. Today patient is complaining of bilateral shoulder pain and morning stiffness lasting around 30 minutes, this started about 3 weeks ago. She denies any side effects related to Humira. She denies any shortness of breath. She is unaware of any family history of autoimmune rheumatic disease. Denies history of DVT/PE. [facility] Medical History Rheumatoid arthritis Anemia Acquired hypothyroidism Surgical History Hx of tubal ligation Family History Maternal Grandmother No problems noted. Paternal Grandmother No problems noted. Sister Malignant tumor of breast, Onset Age: 39 Mother No problems noted. 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 Reports arthralgias, Reports joint swelling and Reports stiffness Physical Exam Vital Signs: Last Vital Signs Pulse 95 08/20/23 12:55 BP 114/78 08/20/23 12:55 Pulse Ox 99 08/20/23 12:55 Oxygen Delivery Method Room Air 08/20/23 12:55 BMI result Body Mass Index 0.2 Const General: cooperative, healthy appearing and comfortable Nutritional Appearance: average body habitus Orientation/consciousness: patient oriented x3 Limitations: no limitations HEENT Head: Yes normocephalic and Yes atraumatic Resp Effort & Inspection: normal respiratory effort and able to speak in complete sentences Auscultation: clear to auscultation bilaterally Cardio Rate: regular rate Rhythm: regular rhythm Skin General skin exam: no rashes or lesions noted Neuro General: patient oriented x3 Extrem Other: Right wrist, no tenderness no pain with flexion and extension Right hand: no MCP or PIP tenderness. Negative MCP squeeze test. few subluxed PIPs Z deformities of her thumbs No swelling or tenderness or pain with any range of motion Left 3rd MCP synovial thickening without tenderness Negative MCP squeeze test Normal range of motion of both elbows and shoulders. Left ankle swelling at the lateral malleolus with minimal tenderness Negative MTP squeeze test bilaterally Results Reviewed Results Reviewed: X-rays 06/2022 FINDINGS: Right: Bone alignment is normal. No fracture or dislocation. Normal joint spaces. Normal soft tissues. Left: Bone alignment is normal. No fracture or dislocation. Normal glenohumeral joint. Mild arthritis at the acromioclavicular joint. Normal soft tissues.? XR/XR shoulder LT min 2V IMPRESSION: Mild arthritis at the left acromioclavicular joint.? ECHNIQUE: 3 views of each hand and wrist? FINDINGS: Left: The bones are osteopenic. Bone alignment is normal. No fracture or dislocation. The joint spaces are normal. No erosions. Soft tissues are normal. Right: The bones are osteopenic. Bone alignment is normal. No fracture or dislocation. The joint spaces are normal. No erosions. Normal soft tissues.? XR/XR hand wrist LT IMPRESSION: Osteopenia. XR/XR foot RT min 3V IMPRESSION: Right: Erosion of the third metacarpal head. Left: Erosion of the left fourth metacarpal head.? XR/XR ankle RT min 3V IMPRESSION: Right: Erosion of the third metacarpal head. Left: Erosion of the left fourth metacarpal head Assessment & Plan Assessment & Plan (1) Rheumatoid arthritis: Comment: +++RF+++ CCP erosive dx before 2011 NSAIDs, Tylenol and prednisone initially around 2018 MTX 4 months DC due GI upset around 2017 HCQ for few months GI upset Humira since 2020 effective Code(s): M06.9 - Rheumatoid arthritis, unspecified Category: Medical Qualifiers: Rheumatoid arthritis location: multiple sites Rheumatoid factor presence: with rheumatoid factor Qualified Code(s): M05.79 - Rheumatoid arthritis with rheumatoid factor of multiple sites without organ or systems involvement Plan: This is a 47-year-old female with seropositive erosive RA who presents for follow-up. She is on Humira every other week. Doing very well only 1 swollen and tender joint. Inflammatory markers normal. Continue Humira 40 mg every other week Infectious screening: Hepatitis panel and T spot negative 2022 Labs before next visit in 3 months (2) Transaminitis: Code(s): R74.01 - Elevation of levels of liver transaminase levels Category: Medical Plan: Patient does not consume alcohol. Autoimmune hepatitis panel pending. Patient would like to be referred to a air grinder. Referral placed (3) High risk medication use: Code(s): Z79.899 - Other watermelon harvesting supervisor (current) drug therapy Category: Medical Plan: Side effects of Humira were discussed with the patient in detail including increased risk of infection, demyelinating disease, reactivation of latent TB, possible increased risk of solid and skin tumors. Patient fully aware. Advised patient to seek medical care MADISYN if patient has an infection and advised patient to stop the medication until the infection is resolved. Plan I spent 26 minutes reviewing patient's chart, evaluating patient, counseling patient and documenting in the chart Orders: Orders Complete Blood Count Auto Diff 3 Months M05.79 - Rheumatoid arthritis with rheumatoid factor of multiple sites without organ or systems involvement, R74.01 - Elevation of levels of liver transaminase levels, Z79.899 - Other watermelon harvesting supervisor (current) drug therapy Comprehensive Met. Panel 3 Months M05.79 - Rheumatoid arthritis with rheumatoid factor of multiple sites without organ or systems involvement, R74.01 - Elevation of levels of liver transaminase levels, Z79.899 - Other watermelon harvesting supervisor (current) drug therapy C Reactive Protein 3 Months M05.79 - Rheumatoid arthritis with rheumatoid factor of multiple sites without organ or systems involvement, R74.01 - Elevation of levels of liver transaminase levels, Z79.899 - Other watermelon harvesting supervisor (current) drug therapy Erythrocyte Sedimentation Rate 3 Months M05.79 - Rheumatoid arthritis with rheumatoid factor of multiple sites without organ or systems involvement, R74.01 - Elevation of levels of liver transaminase levels, Z79.899 - Other watermelon harvesting supervisor (current) drug therapy Referrals Gastroenterology Referral R74.01 - Elevation of levels of liver transaminase levels Coding Level of Care Code Est Pt Level 4 (62399) Diagnoses Rheumatoid arthritis involving multiple sites with positive rheumatoid factor M05.79 Rheumatoid arthritis location: multiple sites Rheumatoid factor presence: with rheumatoid factor Transaminitis R74.01 High risk medication use Z79.899
== END 2023-08-20 13:11 | disposition home or self-care (01) ==
PROVIDERS: PCP Nurse Practitioner Adult Health; Visit Provider Student in an Organized Health Care Education/Training Program
DX: M05.79 Rheumatoid arthritis with rheumatoid factor of multiple sites without organ or systems involvement (principal); R74.01 Elevation of levels of liver transaminase levels; Z79.899 Other long term (current) drug therapy
CPT/HCPCS: 99214

== ENCOUNTER → 2023-08-20 12:54 | Outpatient (BNVA) | payer OTHER, SELFPAY | PROVIDERS: PCP Nurse Practitioner Adult Health; Visit Provider Student in an Organized Health Care Education/Training Program ==

== ENCOUNTER 2023-11-17 12:46 | Outpatient (AMB) | payer OTHER, SELFPAY ==
--- NOTE | 2023-11-17 12:48 | MHC.OFFVIS ---
Vital Signs 11/17/23 12:52 Height 5 ft 3 in Weight 124 lb 8.979 oz BMI 22.1 BP 115/78 Blood Pressure Location Rt brachial Position Sitting Pulse 83 Pulse Source Pulse Oximeter Pulse Oximetry (%) 97 Oxygen Delivery Method Room Air Intake Visit Reasons: RA Intake Note: Patient presents for RA. Allergies No Known Allergies Allergy (Verified 11/17/23 12:51) Medication List - Last Reconciled 11/17/23 by Justo Avalos MD acetaminophen (Tylenol) 325 mg PO QID PRN adalimumab-adaz (Hyrimoz(CF)) inject one - 40 mg/0.4 mL syringe every 2 weeks subcut clotrimazole 1% 1 appl topical BID 2 weeks ferrous sulfate 325 mg PO BID levothyroxine 50 mcg PO DAILY HPI Comments Details: This is a 48-year-old female with seropositive RA who returns for follow-up. On Hyrimoz every other week. Well tolerated. She did not notice a difference when Humira was switched to Hyrimoz. Patient's RA has been doing well. She states that she gets intermittent migratory joint pain involving different joints but overall her symptoms very minimal. Today she is concerned about her thyroid. She has known history of hypothyroidism. She states that her daughter will be going for thyroid surgery. She has 2 sisters who had thyroid surgery. She denies any neck swelling or dysphagia Initial history: This is a 47-year-old female with seropositive rheumatoid arthritis who presents as a new patient. Her previous visual basic developer left the practice. Patient stated that she was diagnosed with rheumatoid arthritis more than 10 years ago she. She was on Tylenol, NSAIDs and prednisone for many years until about 4 years ago when she was started on hydroxychloroquine which she could not tolerate due to GI upset, she was also on methotrexate for a few months and could not tolerated due to GI upset. She was started on Humira about 2 years ago which was effective and she no longer needed prednisone chronically. She would require prednisone tapers a few times a year. Today patient is complaining of bilateral shoulder pain and morning stiffness lasting around 30 minutes, this started about 3 weeks ago. She denies any side effects related to Humira. She denies any shortness of breath. She is unaware of any family history of autoimmune rheumatic disease. Denies history of DVT/PE. [facility] Medical History Rheumatoid arthritis Anemia Acquired hypothyroidism Surgical History Hx of tubal ligation Family History Maternal Grandmother No problems noted. Paternal Grandmother No problems noted. Sister Malignant tumor of breast, Onset Age: 39 Mother No problems noted. 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 Reproductive History Menstrual Total pregnancies: 2 Number of Living Children: 2 Review of Systems [facility] Denies arthralgias and Denies joint swelling Physical Exam Vital Signs: Last Vital Signs Pulse 83 11/17/23 12:52 BP 115/78 11/17/23 12:52 Pulse Ox 97 11/17/23 12:52 Oxygen Delivery Method Room Air 11/17/23 12:52 BMI result Body Mass Index 22.1 Const General: cooperative, healthy appearing and comfortable Nutritional Appearance: average body habitus Orientation/consciousness: patient oriented x3 Limitations: no limitations HEENT Head: Yes normocephalic and Yes atraumatic Resp Effort & Inspection: normal respiratory effort and able to speak in complete sentences Auscultation: clear to auscultation bilaterally Cardio Rate: regular rate Rhythm: regular rhythm Skin General skin exam: no rashes or lesions noted Neuro General: patient oriented x3 Extrem Other: Right wrist, no tenderness no pain with flexion and extension Right hand: no MCP or PIP tenderness. Negative MCP squeeze test. few subluxed PIPs Z deformities of her thumbs No swelling or tenderness or pain with any range of motion Left 3rd MCP synovial thickening without tenderness Negative MCP squeeze test Normal range of motion of both elbows and shoulders. No ankle swelling or tenderness bilaterally Negative MTP squeeze test bilaterally Results Reviewed Results Reviewed: X-rays 06/2022 FINDINGS: Right: Bone alignment is normal. No fracture or dislocation. Normal joint spaces. Normal soft tissues. Left: Bone alignment is normal. No fracture or dislocation. Normal glenohumeral joint. Mild arthritis at the acromioclavicular joint. Normal soft tissues.? XR/XR shoulder LT min 2V IMPRESSION: Mild arthritis at the left acromioclavicular joint.? ECHNIQUE: 3 views of each hand and wrist? FINDINGS: Left: The bones are osteopenic. Bone alignment is normal. No fracture or dislocation. The joint spaces are normal. No erosions. Soft tissues are normal. Right: The bones are osteopenic. Bone alignment is normal. No fracture or dislocation. The joint spaces are normal. No erosions. Normal soft tissues.? XR/XR hand wrist LT IMPRESSION: Osteopenia. XR/XR foot RT min 3V IMPRESSION: Right: Erosion of the third metacarpal head. Left: Erosion of the left fourth metacarpal head.? XR/XR ankle RT min 3V IMPRESSION: Right: Erosion of the third metacarpal head. Left: Erosion of the left fourth metacarpal head Assessment & Plan Assessment & Plan (1) Rheumatoid arthritis: Comment: +++RF+++ CCP erosive dx before 2011 NSAIDs, Tylenol and prednisone initially around 2018 MTX 4 months DC due GI upset around 2017 HCQ for few months GI upset Humira since 2020 effective Code(s): M06.9 - Rheumatoid arthritis, unspecified Category: Medical Qualifiers: Rheumatoid arthritis location: multiple sites Rheumatoid factor presence: with rheumatoid factor Qualified Code(s): M05.79 - Rheumatoid arthritis with rheumatoid factor of multiple sites without organ or systems involvement Plan: This is a 48-year-old female with seropositive erosive RA who presents for follow-up. She is on Hyrimoz 40 mg every other week. Doing very well overall with no active synovitis Continue Hyrimoz 40 mg every other week Infectious screening: Hepatitis panel and T spot negative 2022 Labs before next visit in 3 months (2) Transaminitis: Code(s): R74.01 - Elevation of levels of liver transaminase levels Category: Medical Plan: Patient does not consume alcohol. Autoimmune hepatitis panel negative.. Patient would like to be referred to a area relief pilot. She has an appointment 11/25 (3) High risk medication use: Code(s): Z79.899 - Other extermination inspector (current) drug therapy Category: Medical Plan: Side effects of TNF inhibitors were discussed with the patient in detail including increased risk of infection, demyelinating disease, reactivation of latent TB, possible increased risk of solid and skin tumors. Patient fully aware. Advised patient to seek medical care MADISYN if patient has an infection and advised patient to stop the medication until the infection is resolved. (4) Acquired hypothyroidism: Code(s): E03.9 - Hypothyroidism, unspecified Category: Medical Plan: Patient has known history of hypothyroidism, she is on levothyroxine 50 mcg daily. She is concerned about her thyroid. Her daughter will be going for thyroid surgery in 2 weeks, both of her sisters had thyroid surgery. Will check a thyroid ultrasound to evaluate for any suspicious nodules Plan I spent 26 minutes reviewing patient's chart, evaluating patient, ordering diagnostic workup, counseling patient and documenting in the chart Orders: Orders Complete Blood Count Auto Diff 3 Months M05.79 - Rheumatoid arthritis with rheumatoid factor of multiple sites without organ or systems involvement Comprehensive Met. Panel 3 Months M05.79 - Rheumatoid arthritis with rheumatoid factor of multiple sites without organ or systems involvement Erythrocyte Sedimentation Rate 3 Months M05.79 - Rheumatoid arthritis with rheumatoid factor of multiple sites without organ or systems involvement US thyroid Today E04.1 - Nontoxic single thyroid nodule C Reactive Protein 3 Months M05.79 - Rheumatoid arthritis with rheumatoid factor of multiple sites without organ or systems involvement TSH reflex Free T4 3 Months E03.9 - Hypothyroidism, unspecified Hepatitis A,B,C Profile 3 Months Z11.59 - Encounter for screening for other viral diseases T Spot TB 3 Months Z11.7 - Encounter for testing for latent tuberculosis infection Coding Level of Care Code Est Pt Level 4 (31481) Diagnoses Rheumatoid arthritis involving multiple sites with positive rheumatoid factor M05.79 Rheumatoid arthritis location: multiple sites Rheumatoid factor presence: with rheumatoid factor Transaminitis R74.01 High risk medication use Z79.899 Acquired hypothyroidism E03.9
[2023-11-17 12:52] VITALS: BP 115/78; PULSE 83; O2SAT 97; BMI 22.1
== END 2023-11-17 13:08 | disposition home or self-care (01) ==
PROVIDERS: PCP Nurse Practitioner Adult Health; Visit Provider Student in an Organized Health Care Education/Training Program
DX: M05.79 Rheumatoid arthritis with rheumatoid factor of multiple sites without organ or systems involvement (principal); R74.01 Elevation of levels of liver transaminase levels; Z79.899 Other long term (current) drug therapy; E03.9 Hypothyroidism, unspecified
CPT/HCPCS: 99214

== ENCOUNTER → 2023-11-17 12:46 | Outpatient (BNVA) | payer OTHER, SELFPAY | PROVIDERS: PCP Nurse Practitioner Adult Health; Visit Provider Student in an Organized Health Care Education/Training Program ==

== ENCOUNTER 2023-11-26 13:08 | Outpatient (REF) | payer OTHER, SELFPAY ==
[2023-11-26 14:15] LABS: Estimated Average Glucose 131 mg/dL; Hemoglobin A1c % 6.2 % (<6.0); Total Hemoglobin (HGBA1C) 3134.6684 umol/L
[2023-11-26 14:56] LABS: Ferritin 76 ng/mL (10-250)
[2023-11-27 04:29] LABS: HIV AB/AG Nonreactive (Nonreactive); HIV Num 1 0.69 S/CO (0.00-0.99)
[2023-11-27 13:19] LABS: Alpha Fetoprotein 1.8 ng/mL
[2023-12-01 11:14] LABS: Anti Nuclear Antibody Pattern Nuclear, Homogeneous; Anti Nuclear Antibody Screen POSITIVE (NEGATIVE)
== END 2023-11-26 13:09 | disposition home or self-care (01) ==
LOC: HO.LAB 13:08
PROVIDERS: PCP Nurse Practitioner Adult Health; Visit Provider Nurse Practitioner
DX: R74.01 Elevation of levels of liver transaminase levels (principal); R73.9 Hyperglycemia, unspecified
CPT/HCPCS: 36415; 82105; 82728; 83036; 86038; 86039; 87389

== ENCOUNTER 2023-11-26 13:08 | Outpatient (AMB) | payer OTHER, SELFPAY ==
--- NOTE | 2023-11-26 13:10 | A.OFFVIS_ITS ---
Vital Signs 11/26/23 13:14 Height 5 ft 3 in Weight 130 lb 1.164 oz BMI 23.0 BP 131/89 Blood Pressure Location Lt brachial Position Sitting Pulse 74 Intake Visit Reasons: Elevation of levels of liver transaminase levels Intake Note: Dorita presents in the office as a new patient for elevated LFTs. CC: No GI symptoms - just here due to her elevated labs. College Athlete Required: No Allergies No Known Allergies Allergy (Verified 11/17/23 12:51) HPI HPI Elevation of levels of liver transaminase levels: Details: 48-year-old female here for initial evaluation of transaminitis. She is referred by [facility]. 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 QuantiFERON gold * SURGICAL HISTORY Tubal ligation Colonoscopy at [facility] 01/2023 neg study * ALLERGIES: NKDA * Sleep Number LABS: Laboratory Tests 08/18/23 13:37 WBC 6.7 Hgb 12.6 Hct 38.2 Plt Count 348 Estimated GFR > 60 Total Bilirubin 0.2 GGT 35 H AST 24 ALT 39 H Alkaline Phosphatase 119 H Laboratory Tests 10/15/22 08/18/23 15:21 13:37 Anti-Mitochondrial Ab NEGATIVE Anti-Smooth Muscle Ab <20 Hepatitis A IgM Ab Nonreactive Hep Bs Antigen Negative Hep Bs Antibody NONREACTIVE Hep B Core Total Ab Nonreactive Hepatitis C Ab (EIA) Nonreactive TODAY'S VISIT I note that she has had elevated random glusoce in past ? some element of NIDDM? Her sister has NIDDM. I think we need to get a few more tests to see if diabetes is in play will also add HIV, ferritin, and DAREN to complete the workup. An ultrasound also would be in order. There is no known family history of liver disease, she has had no signs and symptoms of liver disease suspect likely no icterus no jaundice and no nocturnal pruritus. She does not drink alcohol and she thinks she might have lost a little weight recently although it looks like she may have gained looking at our medical charts. She is not severely obese or overweight. However, this is not necessary for ROBERTSON to be at play. ROV 8 weeks. [facility] Medical History (Updated 11/26/23 @ 13:40 by JAIRO Valdivia) Rheumatoid arthritis Anemia Acquired hypothyroidism Surgical History (Updated 11/26/23 @ 13:38 by JAIRO Valdivia) Hx of colonoscopy History of esophagogastroduodenoscopy (EGD) Hx of tubal ligation Family History Maternal Grandmother No problems noted. Paternal Grandmother No problems noted. Sister Malignant tumor of breast, Onset Age: 39 Mother No problems noted. 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[employer] Review of Systems Const Denies fatigue, Denies fever(s), Denies night sweats, Denies poor appetite and Reports weight loss ENT Reports Normal hearing present, Denies dental pain, Denies dysphagia, Denies hearing loss, Denies mouth pain, Denies odynophagia, Denies throat swelling, Denies tongue swelling and Reports other (Dentition adequate) Card Reports no additional complaints Resp Reports no additional complaints GI Details: Denies abdominal pain, Denies melena, Denies bloating, Denies hematochezia, Denies constipation, Denies GI cramping, Denies dysphagia, Denies excessive flatus, Denies early satiety, Denies heartburn, Denies diarrhea, Denies nausea, Denies odynophagia, Denies vomiting and Denies hematemesis Skin/Breast Denies pruritus, Denies lesions, Denies rash and Denies jaundice Neuro Reports Normal hearing present and Denies Abnormal speech present Endo Denies fatigue Aller/Immun Denies throat swelling and Denies tongue swelling Physical Exam Const General: cooperative, no acute distress, well developed and well groomed Nutritional Appearance: average body habitus and well nourished Orientation/consciousness: oriented to person, oriented to place and oriented to time Limitations: No language barrier HEENT Head: Yes normocephalic and Yes atraumatic Eyes General: appearance normal, both eyes and all related structures Pupils: Equal, round and reactive pupils present Neck Neck: Yes normal visual inspection and Yes no lymphadenopathy Thyroid: Thyroid normal Resp Effort & Inspection: normal respiratory effort and able to speak in complete sentences Auscultation: clear to auscultation bilaterally Cardio Rate: regular rate Rhythm: regular rhythm Heart sounds: Normal, physiologic split S2 sound present Peripheral pulses: radial pulses present and posterior tibial pulses present GI Inspection: No distended and No Abdominal panniculus present Palpation (GI): Soft to palpation, nontender, no guarding, not rigid and No hepatosplenomegaly present Percussion: Yes normal to percussion Auscultation: normal bowel sounds Rectal Exam - Female: deferred Skin General skin exam: no rashes or lesions noted, turgor normal, skin not dry, no jaundice, No spider nevi and no striae Rashes: no rashes Nails: normal Neuro General: oriented to person, oriented to place and oriented to time Cranial nerves: Yes Equal, round and reactive pupils present and Yes Normal hearing present Speech: No Abnormal speech present Extrem General: Yes normal to inspection, No clubbing, No cyanosis and No edema Psych Appearance: grossly normal and well kempt Mental Status: mental status grossly normal Speech and movement: Normal speech and movement present Affect: normal affect Attitude: cooperative Thought process: Normal thought process present and not confabulating Thought content: Normal thought content present Insight: Limited insight present (Psych) Judgement: Limited judgement present (Psych) Results Reviewed Results Reviewed: Laboratory Tests 08/18/23 13:37 WBC 6.7 Hgb 12.6 Hct 38.2 Plt Count 348 Estimated GFR > 60 Total Bilirubin 0.2 GGT 35 H AST 24 ALT 39 H Alkaline Phosphatase 119 H Laboratory Tests 10/15/22 08/18/23 15:21 13:37 Anti-Mitochondrial Ab NEGATIVE Anti-Smooth Muscle Ab <20 Hepatitis A IgM Ab Nonreactive Hep Bs Antigen Negative Hep Bs Antibody NONREACTIVE Hep B Core Total Ab Nonreactive Hepatitis C Ab (EIA) Nonreactive Assessment & Plan Assessment & Plan (1) Transaminitis: Comment: BASELINE LABS 08/18/23 13:37 WBC 6.7 Hgb 12.6 Hct 38.2 Plt Count 348 Estimated GFR > 60 Total Bilirubin 0.2 GGT 35 H AST 24 ALT 39 H Alkaline Phosphatase 119 H 10/15/2305/18/24 15:2113:37 Anti-Mitochondrial Ab NEGATIVE Anti-Smooth Muscle Ab <20 Hepatitis A IgM Ab Nonreactive Hep Bs Antigen Negative Hep Bs Antibody NONREACTIVE Hep B Core Total Ab Nonreactive Hepatitis C Ab (EIA) Nonreactive Code(s): R74.01 - Elevation of levels of liver transaminase levels Category: Medical (2) Hyperglycemia: Code(s): R73.9 - Hyperglycemia, unspecified Category: Medical Plan I note that she has had elevated random glusoce in past ? some element of NIDDM? Her sister has NIDDM. I think we need to get a few more tests to see if diabetes is in play will also add HIV, ferritin, and DAREN to complete the workup. An ultrasound also would be in order. There is no known family history of liver disease, she has had no signs and symptoms of liver disease suspect likely no icterus no jaundice and no nocturnal pruritus. She does not drink alcohol and she thinks she might have lost a little weight recently although it looks like she may have gained looking at our medical charts. She is not severely obese or overweight. However, this is not necessary for ROBERTSON to be at play. ROV 8 weeks. Orders: Orders HIV Ab/Ag Today R74.01 - Elevation of levels of liver transaminase levels Hemoglobin A1c Today R73.9 - Hyperglycemia, unspecified, R74.01 - Elevation of levels of liver transaminase levels US abdomen complete Today R74.01 - Elevation of levels of liver transaminase levels Alpha Fetoprotein Today R74.01 - Elevation of levels of liver transaminase levels DAREN Reflex Titer and Pattern Today R74.01 - Elevation of levels of liver transaminase levels Ferritin Today R74.01 - Elevation of levels of liver transaminase levels Coding Level of Care Code New Pt Level 3 (83746) Diagnoses Transaminitis R74.01 Hyperglycemia R73.9
[2023-11-26 13:14] VITALS: BP 131/89; PULSE 74; BMI 23.0
== END 2023-11-26 13:36 | disposition home or self-care (01) ==
PROVIDERS: PCP Nurse Practitioner Adult Health; Visit Provider Nurse Practitioner
DX: R74.01 Elevation of levels of liver transaminase levels (principal); R73.9 Hyperglycemia, unspecified
CPT/HCPCS: 99203

== ENCOUNTER 2023-12-17 11:32 | Outpatient (REF) | payer OTHER, SELFPAY ==
--- NOTE | ~2023-12-17 | US_ITS ---
EXAMINATION: US ABDOMEN LIMITED CLINICAL INFORMATION: Elevation of levels of liver transaminase levels. COMPARISON: None available. TECHNIQUE: Real-time imaging of the right upper quadrant abdominal viscera. FINDINGS: PANCREAS: The visualized portion of the pancreas head and body are normal, portion of the pancreatic body and tail, not visualized are obscured by bowel gas. LIVER: The liver is normal in size. The liver contour is normal. Increased echogenicity of the liver parenchyma, this can be seen in the setting of hepatic steatosis or liver parenchymal disease. No focal hepatic lesion. There is no intrahepatic biliary duct dilatation seen. GALLBLADDER: Normal. The gallbladder is physiologically distended without evidence of stones, sludge, polyps, wall thickening or pericholecystic fluid. COMMON BILE DUCT: Normal in caliber measuring 0.4 cm in diameter. RIGHT KIDNEY: Normal. No hydronephrosis. No renal calculi or focal parenchymal lesions. The kidney measures 9.7 cm in maximum dimension. FREE FLUID: None. US/US abdomen limited IMPRESSION: 1. Increased echogenicity of the liver parenchyma, this can be seen in the setting of hepatic steatosis or liver parenchymal disease. 2. Ultrasound otherwise normal. Electronically signed by: Talia Kaiser MD 01/17/2024 05:17 PM [facility]
== END 2023-12-17 11:33 | disposition home or self-care (01) ==
LOC: HO.HMGCX 11:32
PROVIDERS: PCP Nurse Practitioner; Visit Provider Nurse Practitioner
DX: R74.01 Elevation of levels of liver transaminase levels (principal)
CPT/HCPCS: 76705

== ENCOUNTER 2023-12-21 13:36 | Outpatient (REF) | payer OTHER, SELFPAY | END 2023-12-21 13:37 | disposition home or self-care (01) | LOC: HO.US 13:36 | PROVIDERS: PCP Nurse Practitioner; Visit Provider Student in an Organized Health Care Education/Training Program | DX: E04.1 Nontoxic single thyroid nodule (principal) | CPT/HCPCS: 76536 ==

== ENCOUNTER 2024-03-03 13:14 | Outpatient (AMB) | payer OTHER, SELFPAY ==
[2024-03-03 13:19] VITALS: BP 128/93; PULSE 81; BMI 22.4
--- NOTE | 2024-03-03 13:19 | MHC.OFFVIS ---
Vital Signs 03/03/24 13:19 Height 5 ft 3 in Weight 126 lb 8.725 oz BMI 22.4 BP 128/93 H Blood Pressure Location Rt brachial Position Sitting Pulse 81 Intake Visit Reasons: 8 weeks f/u from r/s 01/22/24 Intake Note: Dorita presents in follow up of labs. CC: Patient reports doing well and denies having any GI symptoms today. Pin Chaser Required: Yes Accompanied by: Self / Same As Patient Allergies No Known Allergies Allergy (Verified 03/03/24 13:22) HPI HPI 8 weeks f/u from r/s 01/22/24: Details: Assessment & Plan (1) Transaminitis: Comment: BASELINE LABS 08/18/23 13:37 WBC 6.7 Hgb 12.6 Hct 38.2 Plt Count 348 Estimated GFR > 60 Total Bilirubin 0.2 GGT 35 H AST 24 ALT 39 H Alkaline Phosphatase 119 H 10/15/2305/18/24 15:2113:37 Anti-Mitochondrial Ab NEGATIVE Anti-Smooth Muscle Ab <20 Hepatitis A IgM Ab Nonreactive Hep Bs Antigen Negative Hep Bs Antibody NONREACTIVE Hep B Core Total Ab Nonreactive Hepatitis C Ab (EIA) Nonreactive Code(s): R74.01 - Elevation of levels of liver transaminase levels Category: Medical (2) Hyperglycemia: Code(s): R73.9 - Hyperglycemia, unspecified Category: Medical Plan I note that she has had elevated random glusoce in past ? some element of NIDDM? Her sister has NIDDM. I think we need to get a few more tests to see if diabetes is in play will also add HIV, ferritin, and DAREN to complete the workup. An ultrasound also would be in order. There is no known family history of liver disease, she has had no signs and symptoms of liver disease suspect likely no icterus no jaundice and no nocturnal pruritus. She does not drink alcohol and she thinks she might have lost a little weight recently although it looks like she may have gained looking at our medical charts. She is not severely obese or overweight. However, this is not necessary for ROBERTSON to be at play. ROV 8 weeks. Orders: Orders HIV Ab/Ag Today R74.01 - Elevation of levels of liver transaminase levels Hemoglobin A1c Today R73.9 - Hyperglycemia, unspecified, R74.01 - Elevation of levels of liver transaminase levels US abdomen complete Today R74.01 - Elevation of levels of liver transaminase levels Alpha Fetoprotein Today R74.01 - Elevation of levels of liver transaminase levels DAREN Reflex Titer and Pattern Today R74.01 - Elevation of levels of liver transaminase levels Ferritin Today R74.01 - Elevation of levels of liver transaminase levels Labs: Laboratory Tests 08/18/23 11/26/23 13:37 13:51 Ferritin 76 Alpha Fetoprotein 1.8 DAREN Screen POSITIVE A DAREN Titer 1:320 H DAREN Pattern Nuclear, Homogeneous A Anti-Mitochondrial Ab NEGATIVE Anti-Smooth Muscle Ab <20 HIV 1&2 Ab/P24 Ag 4thGn Nonreactive ULTRASOUND OF THE ABDOMEN 01/17/24 FINDINGS: PANCREAS: The visualized portion of the pancreas head and body are normal, portion of the pancreatic body and tail, not visualized are obscured by bowel gas. LIVER: The liver is normal in size. The liver contour is normal. Increased echogenicity of the liver parenchyma, this can be seen in the setting of hepatic steatosis or liver parenchymal disease. No focal hepatic lesion. There is no intrahepatic biliary duct dilatation seen. GALLBLADDER: Normal. The gallbladder is physiologically distended without evidence of stones, sludge, polyps, wall thickening or pericholecystic fluid. COMMON BILE DUCT: Normal in caliber measuring 0.4 cm in diameter. RIGHT KIDNEY: Normal. No hydronephrosis. No renal calculi or focal parenchymal lesions. The kidney measures 9.7 cm in maximum dimension. FREE FLUID: None. US/US abdomen limited IMPRESSION: 1. Increased echogenicity of the liver parenchyma, this can be seen in the setting of hepatic steatosis or liver parenchymal disease. 2. Ultrasound otherwise normal. TODAY'S VISIT Mongolian #T[place]ira I explain the results and that the 3 things that will keep her liver healthy is not gaining weight (she is not overweight), avoid any regular ETOH intake and to watch for diabetes and control her blood sugars. Given her very minimal ALT elevation she does not need to follow with gastro, she can be monitored by her PCP with LFT's q6 mos and if they become more that 2x the upper limit then she can return to our services. prn PFSH Medical History Rheumatoid arthritis Anemia Acquired hypothyroidism Surgical History Hx of colonoscopy History of esophagogastroduodenoscopy (EGD) Hx of tubal ligation Family History Maternal Grandmother No problems noted. Paternal Grandmother No problems noted. Sister Malignant tumor of breast, Onset Age: 39 Mother No problems noted. 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[employer] Review of Systems Const Denies fatigue, Denies fever(s), Denies night sweats, Denies poor appetite and Denies weight loss ENT Reports Normal hearing present, Denies dental pain, Denies dysphagia, Denies hearing loss, Denies mouth pain, Denies odynophagia, Denies throat swelling, Denies tongue swelling and Reports other (Dentition adequate) Card Reports no additional complaints Resp Reports no additional complaints GI Details: Denies abdominal pain, Denies melena, Denies bloating, Denies hematochezia, Denies constipation, Denies GI cramping, Denies dysphagia, Denies excessive flatus, Denies early satiety, Denies heartburn, Denies diarrhea, Denies nausea, Denies odynophagia, Denies vomiting and Denies hematemesis Skin/Breast Denies pruritus, Denies lesions, Denies rash and Denies jaundice Neuro Reports Normal hearing present and Denies Abnormal speech present Endo Denies fatigue Aller/Immun Denies throat swelling and Denies tongue swelling Physical Exam Vital Signs: Last Vital Signs Pulse 81 03/03/24 13:19 BP 128/93 H 03/03/24 13:19 BMI result Body Mass Index 22.4 Const General: cooperative, no acute distress, well developed and well groomed Nutritional Appearance: average body habitus and well nourished Orientation/consciousness: oriented to person, oriented to place and oriented to time Limitations: No language barrier HEENT Head: Yes normocephalic and Yes atraumatic Eyes General: appearance normal, both eyes and all related structures Pupils: Equal, round and reactive pupils present Neck Neck: Yes normal visual inspection and Yes no lymphadenopathy Thyroid: Thyroid normal Resp Effort & Inspection: normal respiratory effort and able to speak in complete sentences Auscultation: clear to auscultation bilaterally Cardio Rate: regular rate Rhythm: regular rhythm Heart sounds: Normal, physiologic split S2 sound present Peripheral pulses: radial pulses present and posterior tibial pulses present GI Inspection: No distended and No Abdominal panniculus present Palpation (GI): Soft to palpation, nontender, no guarding, not rigid and No hepatosplenomegaly present Percussion: Yes normal to percussion Auscultation: normal bowel sounds Rectal Exam - Female: deferred Skin General skin exam: no rashes or lesions noted, turgor normal, skin not dry, no jaundice, No spider nevi and no striae Rashes: no rashes Nails: normal Neuro General: oriented to person, oriented to place and oriented to time Cranial nerves: Yes Equal, round and reactive pupils present and Yes Normal hearing present Speech: No Abnormal speech present Extrem General: Yes normal to inspection, No clubbing, No cyanosis and No edema Psych Appearance: grossly normal and well kempt Mental Status: mental status grossly normal Speech and movement: Normal speech and movement present Affect: normal affect Attitude: cooperative Thought process: Normal thought process present and not confabulating Thought content: Normal thought content present Insight: Fair insight present (Psych) Judgement: Fair judgement present (Psych) Results Reviewed Results Reviewed: Laboratory Tests 08/18/23 11/26/23 13:37 13:51 Ferritin 76 Alpha Fetoprotein 1.8 DAREN Screen POSITIVE A DAREN Titer 1:320 H DAREN Pattern Nuclear, Homogeneous A Anti-Mitochondrial Ab NEGATIVE Anti-Smooth Muscle Ab <20 HIV 1&2 Ab/P24 Ag 4thGn Nonreactive ULTRASOUND OF THE ABDOMEN 01/17/24 FINDINGS: PANCREAS: The visualized portion of the pancreas head and body are normal, portion of the pancreatic body and tail, not visualized are obscured by bowel gas. LIVER: The liver is normal in size. The liver contour is normal. Increased echogenicity of the liver parenchyma, this can be seen in the setting of hepatic steatosis or liver parenchymal disease. No focal hepatic lesion. There is no intrahepatic biliary duct dilatation seen. GALLBLADDER: Normal. The gallbladder is physiologically distended without evidence of stones, sludge, polyps, wall thickening or pericholecystic fluid. COMMON BILE DUCT: Normal in caliber measuring 0.4 cm in diameter. RIGHT KIDNEY: Normal. No hydronephrosis. No renal calculi or focal parenchymal lesions. The kidney measures 9.7 cm in maximum dimension. FREE FLUID: None. US/US abdomen limited IMPRESSION: 1. Increased echogenicity of the liver parenchyma, this can be seen in the setting of hepatic steatosis or liver parenchymal disease. 2. Ultrasound otherwise normal. Assessment & Plan Assessment & Plan (1) Transaminitis: Comment: BASELINE LABS 08/18/23 13:37 WBC 6.7 Hgb 12.6 Hct 38.2 Plt Count 348 Estimated GFR > 60 Total Bilirubin 0.2 GGT 35 H AST 24 ALT 39 H Alkaline Phosphatase 119 H 10/15/2305/18/24 15:2113:37 Anti-Mitochondrial Ab NEGATIVE Anti-Smooth Muscle Ab <20 Hepatitis A IgM Ab Nonreactive Hep Bs Antigen Negative Hep Bs Antibody NONREACTIVE Hep B Core Total Ab Nonreactive Hepatitis C Ab (EIA) Nonreactive 08/17/2408/26/24 13:3713:51 Ferritin 76 Alpha Fetoprotein 1.8 DAREN Screen POSITIVE A DAREN Titer 1:320 H DAREN Pattern Nuclear, Homogeneous A Anti-Mitochondrial Ab NEGATIVE Anti-Smooth Muscle Ab <20 HIV 1&2 Ab/P24 Ag 4thGn Nonreactive ULTRASOUND OF THE ABDOMEN 01/17/24 FINDINGS: PANCREAS: The visualized portion of the pancreas head and body are normal, portion of the pancreatic body and tail, not visualized are obscured by bowel gas. LIVER: The liver is normal in size. The liver contour is normal. Increased echogenicity of the liver parenchyma, this can be seen in the setting of hepatic steatosis or liver parenchymal disease. No focal hepatic lesion. There is no intrahepatic biliary duct dilatation seen. GALLBLADDER: Normal. The gallbladder is physiologically distended without evidence of stones, sludge, polyps, wall thickening or pericholecystic fluid. COMMON BILE DUCT: Normal in caliber measuring 0.4 cm in diameter. RIGHT KIDNEY: Normal. No hydronephrosis. No renal calculi or focal parenchymal lesions. The kidney measures 9.7 cm in maximum dimension. FREE FLUID: None. US/US abdomen limited IMPRESSION: 1. Increased echogenicity of the liver parenchyma, this can be seen in the setting of hepatic steatosis or liver parenchymal disease. 2. Ultrasound otherwise normal. Code(s): R74.01 - Elevation of levels of liver transaminase levels Category: Medical Plan Mongolian #Tachira I explain the results and that the 3 things that will keep her liver healthy is not gaining weight (she is not overweight), avoid any regular ETOH intake and to watch for diabetes and control her blood sugars. Given her very minimal ALT elevation she does not need to follow with gastro, she can be monitored by her PCP with LFT's q6 mos and if they become more that 2x the upper limit then she can return to our services. prn Coding Level of Care Code Est Pt Level 3 (80920) Diagnoses Transaminitis R74.01
== END 2024-03-03 13:40 | disposition home or self-care (01) ==
PROVIDERS: PCP Nurse Practitioner; Visit Provider Nurse Practitioner
DX: R74.01 Elevation of levels of liver transaminase levels (principal)
CPT/HCPCS: 99213

== ENCOUNTER → 2024-03-03 13:14 | Outpatient (BNVA) | payer OTHER, SELFPAY | PROVIDERS: PCP Nurse Practitioner; Visit Provider Nurse Practitioner ==

== ENCOUNTER 2024-03-30 16:14 | Emergency (ER) | payer OTHER, SELFPAY ==
--- NOTE | ~2024-03-30 | CT_ITS ---
CLINICAL HISTORY: abd pain n v d CT abdomen and pelvis with contrast Comparison: None Findings: Bilateral lung base interstitial infiltrate. Question pneumonia, please correlate. No acute bony abnormalities. Left pelvic wall sebaceous cyst. Liver and spleen within normal limits. Pancreas and adrenal glands unremarkable. Gallbladder is within normal limits. Heterogeneous area of low-density lower pole right kidney. Question pyelonephritis, please correlate. No focal abnormalities in the left kidney. No ureteral stone or hydronephrosis. Abdominal aorta is normal in caliber. No free fluid or adenopathy in the pelvis. No acute diverticulitis. Appendix unremarkable. Uterus normal size. No adnexal abnormality. Impression: Bilateral lung base interstitial infiltrates Question pneumonia, please correlate Heterogeneous low-density lower pole right kidney Question pyelonephritis, please correlate This document has been electronically signed by: Shorty Donato MD on 03/31/2024 00:53:04
--- NOTE | ~2024-03-30 | XR_ITS ---
CLINICAL HISTORY: sob 1 view chest x-ray. Comparison: CT/SR - CT ABDOMEN PELVIS W IV CON - 03/30/24 23:55 EST Findings: There is faint bibasilar opacity corresponding to mild atelectasis on the CT. Lungs appear otherwise clear. Cardiomediastinal silhouette is within normal limits. IMPRESSION: Mild bibasilar atelectasis. Otherwise no acute cardiopulmonary abnormality. This document has been electronically signed by: Wesly Arteaga MD on 03/31/2024 02:14:13
[2024-03-30 17:08] VITALS: BP 118/77; PULSE 85; RESP 18; TEMP 37; O2SAT 98; BMI 22.7
--- NOTE | 2024-03-30 17:18 | ED_ITS ---
HPI - General Adult General Chief complaint: Abdominal Pain Stated complaint: Flu Symptoms Headache Time Seen by Provider: 03/30/24 21:09 Related Data Home Medications ?Medication ?Instructions ?Recorded ?Confirmed acetaminophen 325 mg tablet 325 mg PO QID PRN 07/16/22 (Tylenol) ferrous sulfate 325 mg (65 mg 325 mg PO BID 07/16/22 iron) tablet levothyroxine 50 mcg tablet 50 mcg PO DAILY 07/16/22 adalimumab-adaz 40 mg/0.4 mL See Rx Instructions subcut .COMPLEX 11/17/23 11/17/23 subcutaneous syringe (Hyrimoz(CF)) Previous Rx's ?Medication ?Instructions ?Recorded clotrimazole 1 % topical ointment 1 appl topical BID 2 weeks #56.7 09/18/22 grams levofloxacin 500 mg tablet 500 mg PO DAILY #7 tabs 03/31/24 Allergies Allergy/AdvReac Type Severity Reaction Status Date / Time No Known Allergies Allergy Verified 03/30/24 17:23 PMFSH Past Medical History Medical History Rheumatoid arthritis Anemia Acquired hypothyroidism Surgical History Hx of colonoscopy History of esophagogastroduodenoscopy (EGD) Hx of tubal ligation Family History Family History Maternal Grandmother No problems noted. Paternal Grandmother No problems noted. Sister Malignant tumor of breast, Onset Age: 39 Mother No problems noted. 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 Full HPI, ROS, assessment and treatment plan per primary provider in the Main ED. 49 yo female here for eval of epigastric abd pain, N/V/D x3 days. no recent abx. no known sick contacts. no urinary sx. Plan: labs, viral swabs Medications Administered Discontinued Medications Generic Name Dose Route Start Last Admin Trade Name Freq PRN Reason Stop Dose Admin Sodium Chloride 1,000 mls @ 999 mls/hr 03/30/24 21:30 03/30/24 22:35 Ns IV 03/30/24 22:30 999 mls/hr .Q1H1M CARYL Administration Iohexol 85 ml 03/30/24 23:57 03/30/24 23:58 Iohexol 350 Mg/Ml 100 Ml Infus..Btl IV 03/30/24 23:58 85 ml ONCE ONE Administration Ketorolac Tromethamine 30 mg 03/30/24 21:27 03/30/24 22:35 Ketorolac Tromethamine 30 Mg/Ml Vial IVPUSH 03/30/24 21:28 30 mg ONCE ONE Administration Ondansetron HCl 4 mg 03/30/24 21:26 03/30/24 22:36 Ondansetron Hcl 4 Mg/2 Ml Vial IVPUSH 03/30/24 21:27 4 mg ONCE ONE Administration Medical Decision Making Lab Data 03/30/24 17:35 03/30/24 17:35 Labs: Lab Results 03/30/24 03/31/24 Range/Units 17:35 01:18 WBC 11.2 H (4.8-10.8) X10*3/uL RBC 4.40 (4.20-5.50) X10*6/uL Hgb 12.3 (12.0-16.0) g/dl Hct 37.6 (37.0-47.0) % MCV 85.5 (80.0-98.0) fL MCH 28.0 (27.0-33.0) pg MCHC 32.7 (31.0-35.0) g/dl RDW 13.3 (11.0-16.0) % Plt Count 285 (160-400) X10*3/uL MPV 9.4 (9.4-12.3) fL Immature Gran % (Auto) 0.3 (0.0-0.4) % Neut % (Auto) 84.0 H (45-73) % Lymph % (Auto) 9.9 L (20-40) % [place] % (Auto) 5.5 (2-11) % Eos % (Auto) 0.1 (0-4) % Baso % (Auto) 0.2 (0-2) % Lymph # (Auto) 1.1 L (1.2-4.9) X10*3/uL [place] # (Auto) 0.6 (0.1-1.2) X10*3/uL Eos # (Auto) 0.0 (0.0-0.4) X10*3/uL Baso # (Auto) 0.0 (0.0-0.2) X10*3/uL Abs Immat Gran (auto) 0.03 (0.00-0.03) X10*3/uL Absolute Neuts (auto) 9.4 H (2.0-8.3) x10*3/uL Absolute Nucleated RBC 0.000 (0.0-0.012) X10*3/uL Nucleated RBC % (auto) 0.0 (0.0-0.2) /100WBC Sodium 133 L (135-145) mmol/L Potassium 3.9 (3.3-5.1) mmol/L Chloride 103 (96-108) mmol/L Carbon Dioxide 25 (22-29) mmol/L Anion Gap 9 L (12-20) BUN 13 (9-16) mg/dL Creatinine 0.62 (0.5-1.4) mg/dL Estim Creat Clear Calc 89.8 Estimated GFR > 60 Random Glucose 162 H (60-115) mg/dL Calcium 9.9 (8.4-10.2) mg/dL Magnesium 2.1 (1.6-2.6) mg/dL Total Bilirubin 0.3 (0.0-1.0) mg/dL AST 29 (5-31) U/L ALT 50 H (0-31) U/L Alkaline Phosphatase 124 H (39-117) U/L Total Protein 8.0 (6.5-8.0) g/dL Albumin 4.0 (3.5-5.0) g/dL Lipase 15 (8-78) U/L Urine Color Dark Yellow Urine Appearance Turbid Urine pH 6.0 (5.0-9.0) Ur Specific [place] 1.020 (1.005-1.025) Urine Protein 30 (1+) H (Neg-Trace) mg/dL Urine Glucose (UA) Negative (Negative) mg/dL Urine Ketones Trace (Negative) mg/dL Urine Blood Trace H (Negative) Urine Nitrite Negative (Negative) Ur Leukocyte Esterase Large (3+) H (Negative) Urine RBC 0-2 (0-2) /HPF Urine WBC >50 (0-5) /HPF Ur Squamous Epith Cells 11-20 (0-2) /HPF Urine Bacteria 4+ (None Seen) Hyaline Casts 3-5 (0-2) /LPF Influenza Type A (PCR) NEGATIVE (Negative) Influenza Type B (PCR) NEGATIVE (Negative) RSV RNA Qual (PCR) NEGATIVE (Negative) SARS-CoV-2 RNA (RT-PCR) NEGATIVE (Negative) Discharge Plan Discharge Clinical Impression: Pneumonia, Gastroenteritis Patient Disposition: Home, Self-Care Instructions: Gastroenteritis (DC), Community Acquired Pneumonia (ED) Prescriptions: New levofloxacin 500 mg tablet 500 mg PO DAILY Qty: 7 0RF No Action clotrimazole 1 % ointment 1 appl topical BID 14 Days Qty: 56.7 0RF levothyroxine 50 mcg tablet 50 mcg PO DAILY ferrous sulfate 325 mg (65 mg iron) tablet 325 mg PO BID acetaminophen [Tylenol] 325 mg tablet 325 mg PO QID PRN adalimumab-adaz [Hyrimoz(CF)] 40 mg/0.4 mL syringe See Rx Instructions subcut .COMPLEX Rx Instructions: inject one - 40 mg/0.4 mL syringe every 2 weeks subcut Referrals: Valentina Delgado NP [Primary Care Provider] - 04/04/24 Print Language: Hungarian
[2024-03-30 17:39] LABS: MANUAL DIFF FLAG NO
[2024-03-30 17:47] LABS: Basophils Percent Auto 0.2 % (0-2); Eosinophils Percent Auto 0.1 % (0-4); Hematocrit 37.6 % (37.0-47.0); Hemoglobin 12.3 g/dl (12.0-16.0); Imm Gran Abs Auto 0.03 X10*3/uL (0.00-0.03); Imm Gran Pct Auto 0.3 % (0.0-0.4); Lymphocytes Absolute Auto 1.1 X10*3/uL (1.2-4.9); Lymphocytes Percent Auto 9.9 % (20-40); Mean Corpuscular HGB Conc 32.7 g/dl (31.0-35.0); Mean Corpuscular Volume 85.5 fL (80.0-98.0); Mean Platelet Volume 9.4 fL (9.4-12.3); Monocytes Absolute Auto 0.6 X10*3/uL (0.1-1.2); Monocytes Percent Auto 5.5 % (2-11); Neutrophils Absolute Auto 9.4 x10*3/uL (2.0-8.3); Platelet Count 285 X10*3/uL (160-400); Red Cell Distribution Width 13.3 % (11.0-16.0); White Blood Count 11.2 X10*3/uL (4.8-10.8)
[2024-03-30 17:55] LABS: Alanine Aminotransferase 50 U/L (0-31); Alkaline Phosphatase 124 U/L (39-117); Anion Gap 9 (12-20); Aspartate Amino Transferase 29 U/L (5-31); Bilirubin Total 0.3 mg/dL (0.0-1.0); Blood Urea Nitrogen 13 mg/dL (9-16); Calcium 9.9 mg/dL (8.4-10.2); Carbon Dioxide 25 mmol/L (22-29); Chloride 103 mmol/L (96-108); Creatinine Clr Calc Pharmacy 89.8; Estimated Glomerular Filt Rate > 60; Glucose Random 162 mg/dL (60-115); Lipase 15 U/L (8-78); Magnesium 2.1 mg/dL (1.6-2.6); Potassium 3.9 mmol/L (3.3-5.1); Sodium 133 mmol/L (135-145)
[2024-03-30 18:17] LABS: Influenza A PCR NEGATIVE (Negative); Influenza B PCR NEGATIVE (Negative); Resp Syncy Virus RNA Qual PCR NEGATIVE (Negative); SARS COV2 PCR INHOUSE NEGATIVE (Negative)
[2024-03-30 20:32] VITALS: BP 126/70; PULSE 88; RESP 18; TEMP 36.8; O2SAT 98
--- NOTE | 2024-03-30 21:28 | ED.ABDPAIN ---
HPI - Abdominal Pain General Chief Complaint: Abdominal Pain Stated Complaint: Flu Symptoms Headache Time Seen by Provider: 03/30/24 21:09 History of Present Illness HPI narrative: Patient is a 49-year-old female presents today with having epigastric pain nausea vomiting diarrhea for the last 3 days. Diarrhea is mostly brown. Vomiting is mostly food. There is no pain on urination there is no chest pain or coughing or congestion. Positive feeling weak and tired. Positive history of rheumatoid arthritis. Patient is on a biologic. No recent travel Related Data Home Medications ?Medication ?Instructions ?Recorded ?Confirmed acetaminophen 325 mg tablet 325 mg PO QID PRN 07/16/22 (Tylenol) ferrous sulfate 325 mg (65 mg 325 mg PO BID 07/16/22 iron) tablet levothyroxine 50 mcg tablet 50 mcg PO DAILY 07/16/22 adalimumab-adaz 40 mg/0.4 mL See Rx Instructions subcut .COMPLEX 11/17/23 11/17/23 subcutaneous syringe (Hyrimoz(CF)) Previous Rx's ?Medication ?Instructions ?Recorded clotrimazole 1 % topical ointment 1 appl topical BID 2 weeks #56.7 09/18/22 grams levofloxacin 500 mg tablet 500 mg PO DAILY #7 tabs 03/31/24 Allergies Allergy/AdvReac Type Severity Reaction Status Date / Time No Known Allergies Allergy Verified 03/30/24 17:23 Review of Systems Review of Systems Positive generalized malaise Positive nausea vomiting diarrhea PMFSH Past Medical History Attestation statement: The following information was validated with the patient. Medical History Rheumatoid arthritis Anemia Acquired hypothyroidism Surgical History Hx of colonoscopy History of esophagogastroduodenoscopy (EGD) Hx of tubal ligation Family History Family History Maternal Grandmother No problems noted. Paternal Grandmother No problems noted. Sister Malignant tumor of breast, Onset Age: 39 Mother No problems noted. 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 Oriented X3. No acute distress. Eyes: Pupils equal, round and reactive to light. ENT: Pharynx normal. Neck: Normal inspection. Neck supple. No lymph nodes noted. No crepitus CVS: Normal heart rate and rhythm. Pulses normal. Normal S1 and S2 Respiratory: No respiratory distress. Breath sounds normal. No Wheezing. No rales Abdomen: Soft and nontender. No rigidity. No distention. good BS x4 Skin: Skin warm and dry. Normal skin color. Normal skin turgor. Extremities: No lower extremity edema. Neurovascular intact to all extremities. No Lacerations. No Rash Neuro: Oriented X 3. No motor deficit. No sensory deficit. Moving all extermities. No slurred speech Medical Decision Making Medical Decision Making [facility] Narrative: Positive nausea vomiting diarrhea generalized malaise weakness. CT scan of the abdomen was interpreted by radiology's no obstruction no abscess no perforation no diverticulitis. It did show bibasilar possible infiltrate. A bower urinary tract infection. Patient has no CVA tenderness. However patient's urine was grossly infected. Will start patient on Levaquin to treat for both UTI and Question pneumonia. Patient's O2 sat is normal. White count is 11. Electrolytes are otherwise unremarkable. Lipase is normal. Will get chest x-ray to further the delineate the pneumonia. My interpretation of the x-ray however was grossly negative. Patient's COVID flu RSV were all negative. Have patient follow-up on an outpatient basis. Patient has no old culture results in the system. Differential Diagnosis Differential Diagnoses: The differential diagnosis associated with the presentation includes Pneumonia, UTI, gastroenteritis, flu, RSV Admission/Observation Consideration of admission/observation: Escalation of care including admission/observation considered Lab Data [facility] Lab Attestation statement: I reviewed the patient's lab results. 03/30/24 17:35 03/30/24 17:35 Labs: Lab Results 03/30/24 03/31/24 Range/Units 17:35 01:18 WBC 11.2 H (4.8-10.8) X10*3/uL RBC 4.40 (4.20-5.50) X10*6/uL Hgb 12.3 (12.0-16.0) g/dl Hct 37.6 (37.0-47.0) % MCV 85.5 (80.0-98.0) fL MCH 28.0 (27.0-33.0) pg MCHC 32.7 (31.0-35.0) g/dl RDW 13.3 (11.0-16.0) % Plt Count 285 (160-400) X10*3/uL MPV 9.4 (9.4-12.3) fL Immature Gran % (Auto) 0.3 (0.0-0.4) % Neut % (Auto) 84.0 H (45-73) % Lymph % (Auto) 9.9 L (20-40) % [place] % (Auto) 5.5 (2-11) % Eos % (Auto) 0.1 (0-4) % Baso % (Auto) 0.2 (0-2) % Lymph # (Auto) 1.1 L (1.2-4.9) X10*3/uL [place] # (Auto) 0.6 (0.1-1.2) X10*3/uL Eos # (Auto) 0.0 (0.0-0.4) X10*3/uL Baso # (Auto) 0.0 (0.0-0.2) X10*3/uL Abs Immat Gran (auto) 0.03 (0.00-0.03) X10*3/uL Absolute Neuts (auto) 9.4 H (2.0-8.3) x10*3/uL Absolute Nucleated RBC 0.000 (0.0-0.012) X10*3/uL Nucleated RBC % (auto) 0.0 (0.0-0.2) /100WBC Sodium 133 L (135-145) mmol/L Potassium 3.9 (3.3-5.1) mmol/L Chloride 103 (96-108) mmol/L Carbon Dioxide 25 (22-29) mmol/L Anion Gap 9 L (12-20) BUN 13 (9-16) mg/dL Creatinine 0.62 (0.5-1.4) mg/dL Estim Creat Clear Calc 89.8 Estimated GFR > 60 Random Glucose 162 H (60-115) mg/dL Calcium 9.9 (8.4-10.2) mg/dL Magnesium 2.1 (1.6-2.6) mg/dL Total Bilirubin 0.3 (0.0-1.0) mg/dL AST 29 (5-31) U/L ALT 50 H (0-31) U/L Alkaline Phosphatase 124 H (39-117) U/L Total Protein 8.0 (6.5-8.0) g/dL Albumin 4.0 (3.5-5.0) g/dL Lipase 15 (8-78) U/L Urine Color Dark Yellow Urine Appearance Turbid Urine pH 6.0 (5.0-9.0) Ur Specific [place] 1.020 (1.005-1.025) Urine Protein 30 (1+) H (Neg-Trace) mg/dL Urine Glucose (UA) Negative (Negative) mg/dL Urine Ketones Trace (Negative) mg/dL Urine Blood Trace H (Negative) Urine Nitrite Negative (Negative) Ur Leukocyte Esterase Large (3+) H (Negative) Influenza Type A (PCR) NEGATIVE (Negative) Influenza Type B (PCR) NEGATIVE (Negative) RSV RNA Qual (PCR) NEGATIVE (Negative) SARS-CoV-2 RNA (RT-PCR) NEGATIVE (Negative) Independent Interpretation I performed an independent interpretation of an: Plain X-Ray (Chest x-ray negative) Radiology Impression Discussion of test interpretation with radiology: I have reviewed the radiologist's reading. Independent Historian Clinical information obtained from an independent historian. History obtained from or confirmed by: Other (Family) External Record Review External record reviewed: Office record Prescription Management I considered prescription management with: Antibiotic Chronic Conditions Rheumatoid arthritis Social Determinants Patient?s care significantly limited by Social Determinants of Health including: Problems related to primary support group Medications Administered Discontinued Medications Generic Name Dose Route Start Last Admin Trade Name Freq PRN Reason Stop Dose Admin Sodium Chloride 1,000 mls @ 999 mls/hr 01/29/25 21:30 03/30/24 22:35 Ns IV 03/30/24 22:30 999 mls/hr .Q1H1M CARYL Administration Iohexol 85 ml 03/30/24 23:57 03/30/24 23:58 Iohexol 350 Mg/Ml 100 Ml Infus..Btl IV 03/30/24 23:58 85 ml ONCE ONE Administration Ketorolac Tromethamine 30 mg 03/30/24 21:27 03/30/24 22:35 Ketorolac Tromethamine 30 Mg/Ml Vial IVPUSH 03/30/24 21:28 30 mg ONCE ONE Administration Ondansetron HCl 4 mg 03/30/24 21:26 03/30/24 22:36 Ondansetron Hcl 4 Mg/2 Ml Vial IVPUSH 03/30/24 21:27 4 mg ONCE ONE Administration Discharge Plan Discharge Clinical Impression: Pneumonia, Gastroenteritis Patient Disposition: Home, Self-Care Instructions: Gastroenteritis (DC), Community Acquired Pneumonia (ED) Prescriptions: New levofloxacin 500 mg tablet 500 mg PO DAILY Qty: 7 0RF No Action clotrimazole 1 % ointment 1 appl topical BID 14 Days Qty: 56.7 0RF levothyroxine 50 mcg tablet 50 mcg PO DAILY ferrous sulfate 325 mg (65 mg iron) tablet 325 mg PO BID acetaminophen [Tylenol] 325 mg tablet 325 mg PO QID PRN adalimumab-adaz [Hyrimoz(CF)] 40 mg/0.4 mL syringe See Rx Instructions subcut .COMPLEX Rx Instructions: inject one - 40 mg/0.4 mL syringe every 2 weeks subcut Referrals: Valentina Delgado NP [Primary Care Provider] - 04/04/24 Print Language: Surinamese
[2024-03-30] MEDS: 0.9 % Sodium Chloride 1,000 ML 999 ML IV (22:35)
[2024-03-30] MEDS: Ketorolac Tromethamine 30 MG/ML VIAL IVPUSH (22:35)
[2024-03-30] MEDS: ondansetron HCL 4 MG/2 ML VIAL IVPUSH (22:36)
--- NOTE | 2024-03-30 22:59 | PC.NURSE ---
Pt presents from home for evaluation of middle abd pain that has been ongoing for approximately 3 days with nausea/vomiting. No similar symptoms reported in the past. Denies fever. Food/fluid intake WNL. Denies problems voiding. Son at the beside.
[2024-03-30] MEDS: iohexoL 350 MG/ML 100 ML INFUS..BTL 85 ML IV (23:58)
[2024-03-31 00:22] VITALS: BP 125/75; PULSE 94; RESP 18; TEMP 37.2; O2SAT 99
[2024-03-31 01:24] LABS: Appearance Urine Turbid; Color Urine Dark Yellow; Glucose Urine UA Negative (Negative); Leukocyte Esterase Urine Large (3+) (Negative); Nitrite Urine Negative (Negative); UMIC TRIGGER UACC YES; Urine Blood Trace (Negative); Urine Ketones Trace mg/dL (Negative); Urine Protein 30 (1+) mg/dL (Neg-Trace)
[2024-03-31 01:46] LABS: Bacteria Urine 4+ (None Seen); RBC Urine 0-2 /HPF (0-2); UACC Culture Trigger YES; WBC Urine >50 /HPF (0-5)
[2024-03-31 03:15] VITALS: BP 147/93; PULSE 104; RESP 18; TEMP 37.4; O2SAT 100
[2024-03-31] MEDS: levoFLOXacin 500 MG TABLET PO (03:16)
== END 2024-03-31 03:20 | disposition home or self-care (01) ==
PROVIDERS: Physician Assistant Medical; Emergency Provider Emergency Medicine Emergency Medical Services; PCP Nurse Practitioner Adult Health
DX: J18.9 Pneumonia, unspecified organism (principal); K52.9 Noninfective gastroenteritis and colitis, unspecified; R10.2 Pelvic and perineal pain; R10.13 Epigastric pain; R06.02 Shortness of breath; R11.2 Nausea with vomiting, unspecified; Z03.818 Encounter for observation for suspected exposure to other biological agents ruled out; Z79.899 Other long term (current) drug therapy
CPT/HCPCS: 0241U; 71045; 74177; 80053; 81001; 83690; 83735; 85025; 87086; 87088; 87186; 96361; 96374; 96375; 99284; J1885; J2405; Q9967

== ENCOUNTER → 2024-03-30 21:25 | Outpatient (BNV) | payer OTHER, SELFPAY | PROVIDERS: Emergency Provider Emergency Medicine Emergency Medical Services; PCP Nurse Practitioner Adult Health; Visit Provider Radiology Diagnostic Radiology | DX: N28.89 Other specified disorders of kidney and ureter (principal) | CPT/HCPCS: 74177 ==

== ENCOUNTER → 2024-03-31 01:14 | Outpatient (BNV) | payer OTHER, SELFPAY | PROVIDERS: Emergency Provider Emergency Medicine Emergency Medical Services; PCP Nurse Practitioner Adult Health; Visit Provider Radiology Diagnostic Radiology | DX: R06.02 Shortness of breath (principal) | CPT/HCPCS: 71045 ==

== ENCOUNTER 2024-06-24 14:25 | Outpatient (REF) | payer OTHER, SELFPAY ==
[2024-06-24 14:45] LABS: MANUAL DIFF FLAG NO
[2024-06-24 15:03] LABS: Basophils Percent Auto 0.3 % (0-2); Eosinophils Absolute Auto 0.2 X10*3/uL (0.0-0.4); Eosinophils Percent Auto 3.8 % (0-4); Hematocrit 38.9 % (37.0-47.0); Hemoglobin 12.6 g/dl (12.0-16.0); Imm Gran Abs Auto 0.01 X10*3/uL (0.00-0.03); Imm Gran Pct Auto 0.2 % (0.0-0.4); Lymphocytes Absolute Auto 1.8 X10*3/uL (1.2-4.9); Lymphocytes Percent Auto 28.5 % (20-40); Mean Corpuscular HGB Conc 32.4 g/dl (31.0-35.0); Mean Corpuscular Hemoglobin 27.5 pg (27.0-33.0); Mean Corpuscular Volume 84.9 fL (80.0-98.0); Mean Platelet Volume 9.8 fL (9.4-12.3); Monocytes Absolute Auto 0.4 X10*3/uL (0.1-1.2); Neutrophils Absolute Auto 3.9 x10*3/uL (2.0-8.3); Neutrophils Percent Auto 61.2 % (45-73); Platelet Count 360 X10*3/uL (160-400); Red Blood Count 4.58 X10*6/uL (4.20-5.50); Red Cell Distribution Width 13.2 % (11.0-16.0); White Blood Count 6.4 X10*3/uL (4.8-10.8)
--- OUTSIDE RECORDS SUMMARY | 2024-06-24 15:07 | XMS_ITS | Data Portability ---
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 Electrical Name Role Phone BRYANNA AQUILES Primary Care Provider [phone] Assessment Encounter Date Assessment Date Assessment LastModified by Organization Details LastModified Time 12/03/2021 12/03/2021 After a discussion of treatment options, which included consideration of best practices and patient preferences, the following treatment plan and objectives were adopted: [email or web address] Not available 12/03/2021 17:27:49 03/11/2022 03/11/2022 After a discussion of treatment options, which included consideration of best practices and patient preferences, the following treatment plan and objectives were adopted: [email or web address] Not available 03/11/2022 16:32:39 Plan of Treatment Reminders Order Date Submit Date Provider Last Modified By Organization Details Last Modified Time Details Appointments None recorded. Lab TSH, serum or plasma 2024 025 [facility], [address] [place] [address], [id number], 5 11:59:40 CMP, serum or plasma 2024 025 [facility], [address] [place] [address], [id number], 5 09:14:45 gamma-gluta myl transferase (ggt), serum 2024 025 [facility], [address] [place] [address], [id number], 5 18:07:47 alkaline phosphatase isoenzymes, serum or plasma 2024 025 [facility], [address] [place] [address], 26548, 5 18:07:46 HbA1c (hemoglobin A1c), blood 2024 025 [facility], [address] [place] [address], 39391, 5 16:01:01 CBC 2024 025 [facility], [address] [place] [address], 47[address], 5 15:49:21 iron + total iron-bindin g capacity (TIBC), serum 2024 025 [facility], [address] [place] [address], 21786, 5 09:14:46 TSH, serum or plasma 2022 023 [facility], [address] [place] [address], 20162, 3 14:21:51 T4, free, serum 2022 023 [facility], [address] [place] [address], 88891, 3 14:01:37 HbA1c (hemoglobin A1c), blood - fasting 2022 023 [facility], [address] [place] [address], 55234, 3 11:57:24 CMP, serum or plasma - fasting 2022 023 [facility], [address] [place] [address], 78220, 3 11:41:27 TSH, serum or plasma 2022 023 [facility], [address] [place] [address], 18956, 3 08:58:00 HbA1c (hemoglobin A1c), blood 2022 023 [facility], [address] [place] [address], 18538, 3 11:51:15 lipid panel, serum 2022 023 [facility], [address] [place] [address], 93796, 3 11:34:16 CBC 2022 023 [facility], [address] [place] [address], 52499, 3 10:20:14 ferritin, serum or plasma 2022 023 [facility], [address] [place] [address], 30865, 3 10:55:46 iron + total iron-bindin g capacity (TIBC), serum 2022 023 [facility], [address] [place] [address], 14545, 3 11:34:17 HbA1c (hemoglobin A1c), blood 2021 022 [facility], [address] [place] [address], 55976, 2 11:53:25 Referral diabetic ophthalmolo gy referral 2022 023 [email or web address] Myron Knowles MD, 2 [facility] [address], [place], [address], 3 14:08:10 rheumatolog ist referral - new pt [id number] yo with RA on humira 2022 023 [email or web address] [facility], [address] [place] [address] [address], [place], [address], 10:22:53 Procedures None recorded. Surgeries None recorded. Imaging None recorded. Medication Orders None recorded. Patient TargetsNo targets recorded. 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 ? ?L 3.98-1 0.04 Not Available [address], [address], 11/21/2021 10:51:59 11/21/19 22 11/21/2021 CBC RBC 4.41 M/? ? ?L 3.93-5 .22 Not Available [address], 76[address], 11/21/2021 10:51:59 11/21/19 22 11/21/2021 CBC HGB 11.5 g/dL 11.2-1 5.7 Not Available [address], 79353, 11/21/2021 10:51:59 11/21/19 22 11/21/2021 CBC HCT 39.2 % 34.1-4 4.9 Not Available [address], 75642, 11/21/2021 10:51:59 11/21/19 22 11/21/2021 CBC MCV 88.9 fL 79.4-9 4.8 Not Available [address], 90671, 11/21/2021 10:51:59 11/21/19 22 11/21/2021 CBC MCH 26.1 pg 25.6-3 2.2 Not Available [address], 97297, 11/21/2021 10:51:59 11/21/19 22 11/21/2021 CBC MCHC 29.3 g/dL 32.2-3 5.5 low Not Available [address], 47787, 11/21/2021 10:51:59 11/21/19 22 11/21/2021 CBC plt 289 K/? ? ?L 182-36 9 Not Available [address], 99727, 11/21/2021 10:51:59 11/21/19 22 11/21/2021 CBC MPV 10.3 fL 9.4-12 .3 Not Available [address], 55085, 11/21/2021 10:51:59 11/21/19 22 11/21/2021 CBC neut% 76.9 % 34.0-7 1.1 high Not Available [address], 48599, 11/21/2021 10:51:59 11/21/19 22 11/21/2021 CBC neut# 6.21 1.56-6 .13 high Not Available [address], 69173, 11/21/2021 10:51:59 11/21/1911/21/2021 CBC lymph % 18.3 % 19.3-5 1.7 low Not Available [address], 74108, 11/21/2021 10:51:59 11/21/19 22 11/21/2021 CBC lymph # 1.48 K/? ? ?L 1.18-3 .74 Not Available [address], 00758, 11/21/2021 10:51:59 11/21/19 22 11/21/2021 CBC mono% 4.3 % 4.7-12 .5 low Not Available [address], 76051, 11/21/2021 10:51:59 11/21/19 22 11/21/2021 CBC mono# 0.35 0.24-0 .56 Not Available [address], 56879, 11/21/2021 10:51:59 11/21/19 22 11/21/2021 CBC eo% 0.1 % 0.7-5. 8 low Not Available [address], 34266, 11/21/2021 10:51:59 11/21/19 22 11/21/2021 CBC eo# 0.01 0.04-0 .36 low Not Available [address], 87109, 11/21/2021 10:51:59 11/21/19 22 11/21/2021 CBC baso% 0.2 % 0.1-1. 2 Not Available [address], 10815, 11/21/2021 10:51:59 11/21/19 22 11/21/2021 CBC baso# 0.02 0.00-0 .08 Not Available [address], 94410, 11/21/2021 10:51:59 11/21/19 22 11/21/2021 CBC RDW-CV 16.9 % 11.7-1 4.4 high Not Available [address], 96341, 11/21/2021 10:51:59 11/21/19 22 11/21/2021 CBC Ig% 0.200 % 0.000- 1.500 Ig % >0.5 Indic ates possi ble Left Shift Not Available [address], 83138, 11/21/2021 10:51:59 11/21/19 22 11/21/2021 CBC Ig# 0.020 0.000- 0.093 Not Available [address], 42478, 11/21/2021 10:51:59 11/21/19 22 11/21/2021 CBC NRBC% 0.0 % 0.0-0. 2 Not Available [address], 38908, 11/21/2021 10:51:59 11/21/19 22 11/21/2021 CBC NRBC# 0.000 0.000- 0.012 Not Available [address], 74607, 11/21/2021 10:51:59 11/21/19 22 11/21/2021 COMP. METAB OLIC PANEL glucose 185 mg/dL 70-100 high LIPS= Speci men Sligh tly Lipem ic. Chem Resul ts may be effec mariel. Not Available [address], 23923, 11/21/2021 11:06:50 11/21/19 22 11/21/2021 COMP. METAB OLIC PANEL BUN 14 mg/dL 7-18 Not Available [address], 79894, 11/21/2021 11:06:50 11/21/19 22 11/21/2021 COMP. METAB OLIC PANEL creatinine 0.9 mg/dL 0.8-1. 3 Not Available [address], 76338, 11/21/2021 11:06:50 11/21/19 22 11/21/2021 COMP. METAB OLIC PANEL B/C 15.6 ratio Not Available [address], 55220, 11/21/2021 11:06:50 11/21/19 22 11/21/2021 COMP. METAB OLIC PANEL GFR >=60ML /MIN mL/mi n normal >=60m L/min - Almita l or midly reduc ed <60mL /min- Decre ased kidne y funct ion <15mL /min - Kidne y failu re Cr y Medic al Group calcu lates estim ated Glome rular Filtr ation Rate (eGFR ) using the Chron ic Kidne y Disea se Epide miolo gy Colla borat ion (CKD- EPI) Equat ion (Cristina davila et. al 2020) as recom mary d by the Natio nal Kidne y Found ation . eGFR is based on age, serum creat inine , and sex. CKD-E PI does not calcu late eGFR by race, does not apply to child jada (age <18 years ), and shoul d not be used in pregn marilyn. Not Available [address], 97256, 11/21/2021 11:06:50 11/21/19 22 11/21/2021 COMP. METAB OLIC PANEL sodium 137 mmol/ L 136-14 5 Not Available [address], 29490, 11/21/2021 11:06:50 11/21/19 22 11/21/2021 COMP. METAB OLIC PANEL potassium 4.7 mmol/ L 3.5-5. 1 Not Available [address], 01290, 11/21/2021 11:06:50 11/21/19 22 11/21/2021 COMP. METAB OLIC PANEL chloride 102 mmol/ L 96-107 Not Available [address], 01086, 11/21/2021 11:06:50 11/21/19 22 11/21/2021 COMP. METAB OLIC PANEL anion gap 7.8 5.0-15 .0 Not Available [address], 98752, 11/21/2021 11:06:50 11/21/19 22 11/21/2021 COMP. METAB OLIC PANEL CO2 27 mmol/ L 21-32 Not Available [address], 08301, 11/21/2021 11:06:50 11/21/19 22 11/21/2021 COMP. METAB OLIC PANEL calcium 9.4 mg/dL 8.5-10 .3 Not Available [address], 60070, 11/21/2021 11:06:50 11/21/19 22 11/21/2021 COMP. METAB OLIC PANEL total protein 7.5 g/dL 6.4-8. 2 Not Available [address], 86509, 11/21/2021 11:06:50 11/21/19 22 11/21/2021 COMP. METAB OLIC PANEL albumin 3.7 g/dL 3.4-5. 0 Not Available [address], 57124, 11/21/2021 11:06:50 11/21/19 22 11/21/2021 COMP. METAB OLIC PANEL globulin 3.8 g/dL Not Available [address], 68991, 11/21/2021 11:06:50 11/21/19 22 11/21/2021 COMP. METAB OLIC PANEL A/G 1.0 ratio 0.8-2. 0 Not Available [address], 24618, 11/21/2021 11:06:50 11/21/19 22 11/21/2021 COMP. METAB OLIC PANEL total bilirubin 0.20 mg/dL 0.00-1 .00 Not Available [address], 12010, 11/21/2021 11:06:50 11/21/19 22 11/21/2021 COMP. METAB OLIC PANEL AST 19 U/L 0-37 Not Available [address], 00371, 11/21/2021 11:06:50 11/21/19 22 11/21/2021 COMP. METAB OLIC PANEL ALT 40 U/L 6-63 Not Available [address], 55310, 11/21/2021 11:06:50 11/21/19 22 11/21/2021 COMP. METAB OLIC PANEL alk. phos. 160 U/L 50-136 high Not Available [address], 08810, 11/21/2021 11:06:50 11/21/19 22 11/21/2021 C-JAIRO CTIVE PROTE IN-QU ANTIT ATIVE C-reactive protein -quant 111.7 mg/L 0.0-9. 0 high Not Available [address], 31662, 11/21/2021 11:06:51 11/21/19 22 11/21/2021 HGB A1C hemoglobin A1C 6.5 % 4.8-6. 0 high Goal: <7% in Patie nts with Diabe tasneem An A1c betwe en 5.7-6 .4% is ident ified as pre-d iabet es and sugge sts risk for progr essio n to diabe tasneem Two a1c value s of 6.5% or highe r is consi stent with a diagn osis of diabe tasneem but may need furth er confi rmati on Not Available [address], [address], 11/21/2021 11:39:15 09/11/21/2021 HGB A1C estimated average glucose 139.9 mg/dL Not Available [address], 13227, 11/21/2021 11:39:15 11/21/1911/21/2021 ESR sed rate 8.0 0.0-15 .0 Not Available [address], 98045, 11/21/2021 11:59:07 11/21/1911/21/2021 TSH TSH 1.44 uIU/m L 0.50-6 .00 The Ameri can Colle ge of Endoc rinol ogy and Ameri can Thyro id Assoc iatio n recom mend goal TSH value s betwe en 0.4-4 .0 mIU/m L. Not Available [address], 70697, 11/21/2021 12:07:21 12/14/1912/13/2021 CBC WBC 6.31 K/? ? ?L 3.98-1 0.04 Not Available [address], 22301, 12/13/2021 10:52:03 12/14/1912/13/2021 CBC RBC 4.87 M/? ? ?L 3.93-5 .22 Not Available [address], 28663, 12/13/2021 10:52:03 12/14/1912/13/2021 CBC HGB 12.9 g/dL 11.2-1 5.7 Not Available [address], 46718, 12/13/2021 10:52:03 12/14/1912/13/2021 CBC HCT 41.5 % 34.1-4 4.9 Not Available [address], 11839, 12/13/2021 10:52:03 12/14/1921 1212/13/2021 CBC MCV 85.2 fL 79.4-9 4.8 Not Available [address], 86500, 12/13/2021 10:52:03 12/14/19 22 12/13/2021 CBC MCH 26.5 pg 25.6-3 2.2 Not Available [address], 47510, 12/13/2021 10:52:03 12/14/19 22 12/13/2021 CBC MCHC 31.1 g/dL 32.2-3 5.5 low Not Available [address], 20442, 12/13/2021 10:52:03 12/14/1912/13/2021 CBC plt 341 K/? ? ?L 182-36 9 Not Available [address], 90605, 12/13/2021 10:52:03 12/14/19 22 12/13/2021 CBC MPV 10.0 fL 9.4-12 .3 Not Available [address], 95392, 12/13/2021 10:52:03 12/14/19 22 12/13/2021 CBC neut% 38.8 % 34.0-7 1.1 Not Available [address], 92261, 12/13/2021 10:52:03 12/14/19 22 12/13/2021 CBC neut# 2.45 1.56-6 .13 Not Available [address], 20643, 12/13/2021 10:52:03 12/14/19 22 12/13/2021 CBC lymph % 43.7 % 19.3-5 1.7 Not Available [address], 40679, 12/13/2021 10:52:03 12/14/19 22 12/13/2021 CBC lymph # 2.76 K/? ? ?L 1.18-3 .74 Not Available [address], 66627, 12/13/2021 10:52:03 12/14/19 22 12/13/2021 CBC mono% 8.1 % 4.7-12 .5 Not Available [address], 08595, 12/13/2021 10:52:03 12/14/19 22 12/13/2021 CBC mono# 0.51 0.24-0 .56 Not Available [address], 50588, 12/13/2021 10:52:03 12/14/19 22 12/13/2021 CBC eo% 8.7 % 0.7-5. 8 high Not Available [address], 75425, 12/13/2021 10:52:03 12/14/19 22 12/13/2021 CBC eo# 0.55 0.04-0 .36 high Not Available [address], 80601, 12/13/2021 10:52:03 12/14/19 22 12/13/2021 CBC baso% 0.5 % 0.1-1. 2 Not Available [address], 91382, 12/13/2021 10:52:03 12/14/19 22 12/13/2021 CBC baso# 0.03 0.00-0 .08 Not Available [address], 32438, 12/13/2021 10:52:03 12/14/19 22 12/13/2021 CBC RDW-CV 14.5 % 11.7-1 4.4 high Not Available [address], 95049, 12/13/2021 10:52:03 12/14/19 22 12/13/2021 CBC Ig% 0.200 % 0.000- 1.500 Ig % >0.5 Indic ates possi ble Left Shift Not Available [address], 12367, 12/13/2021 10:52:03 12/14/19 22 12/13/2021 CBC Ig# 0.010 0.000- 0.093 Not Available [address], 23452, 12/13/2021 10:52:03 12/14/19 22 12/13/2021 CBC NRBC% 0.0 % 0.0-0. 2 Not Available [address], 52404, 12/13/2021 10:52:03 12/14/19 22 12/13/2021 CBC NRBC# 0.000 0.000- 0.012 Not Available [address], 45258, 12/13/2021 10:52:03 12/14/19 22 12/13/2021 COMP. METAB OLIC PANEL glucose 98 mg/dL 70-100 Not Available [address], 83597, 12/13/2021 11:26:31 12/14/19 22 12/13/2021 COMP. METAB OLIC PANEL BUN 11 mg/dL 7-18 Not Available [address], 45214, 12/13/2021 11:26:31 12/14/19 22 12/13/2021 COMP. METAB OLIC PANEL creatinine 0.7 mg/dL 0.8-1. 3 low Not Available [address], 97156, 12/13/2021 11:26:31 12/14/19 22 12/13/2021 COMP. METAB OLIC PANEL B/C 15.7 ratio Not Available [address], 56617, 12/13/2021 11:26:31 12/14/19 22 12/13/2021 COMP. METAB OLIC PANEL GFR >=60ML /MIN mL/mi n normal >=60m L/min - Almita l or midly reduc ed <60mL /min- Decre ased kidne y funct ion <15mL /min - Kidne y failu re Cr y Medic al Group calcu lates estim ated Glome rular Filtr ation Rate (eGFR ) using the Chron ic Kidne y Disea se Epide miolo gy Colla borat ion (CKD- EPI) Equat ion (Cristina r et. al 2020) as recom mary d by the Natio nal Kidne y Found ation . eGFR is based on age, serum creat inine , and sex. CKD-E PI does not calcu late eGFR by race, does not apply to child jada (age <18 years ), and shoul d not be used in pregn marilyn. Not Available [address], 13194, 12/13/2021 11:26:31 12/14/19 22 12/13/2021 COMP. METAB OLIC PANEL sodium 141 mmol/ L 136-14 5 Not Available [address], 95529, 12/13/2021 11:26:31 12/14/19 22 12/13/2021 COMP. METAB OLIC PANEL potassium 4.3 mmol/ L 3.5-5. 1 Not Available [address], 05843, 12/13/2021 11:26:31 12/14/19 22 12/13/2021 COMP. METAB OLIC PANEL chloride 104 mmol/ L 96-107 Not Available [address], 11854, 12/13/2021 11:26:31 12/14/19 22 12/13/2021 COMP. METAB OLIC PANEL anion gap 6.3 5.0-15 .0 Not Available [address], 34536, 12/13/2021 11:26:31 12/14/19 22 12/13/2021 COMP. METAB OLIC PANEL CO2 31 mmol/ L 21-32 Not Available [address], 84377, 12/13/2021 11:26:31 12/14/19 22 12/13/2021 COMP. METAB OLIC PANEL calcium 9.8 mg/dL 8.5-10 .3 Not Available [address], 62248, 12/13/2021 11:26:31 12/14/19 22 12/13/2021 COMP. METAB OLIC PANEL total protein 7.5 g/dL 6.4-8. 2 Not Available [address], 64494, 12/13/2021 11:26:31 12/14/19 22 12/13/2021 COMP. METAB OLIC PANEL albumin 3.8 g/dL 3.4-5. 0 Not Available [address], 16203, 12/13/2021 11:26:31 12/14/19 22 12/13/2021 COMP. METAB OLIC PANEL globulin 3.7 g/dL Not Available [address], 60614, 12/13/2021 11:26:31 12/14/19 22 12/13/2021 COMP. METAB OLIC PANEL A/G 1.0 ratio 0.8-2. 0 Not Available [address], 15353, 12/13/2021 11:26:31 12/14/19 22 12/13/2021 COMP. METAB OLIC PANEL total bilirubin 0.30 mg/dL 0.00-1 .00 Not Available [address], 89614, 12/13/2021 11:26:31 12/14/19 22 12/13/2021 COMP. METAB OLIC PANEL AST 19 U/L 0-37 Not Available [address], 26700, 12/13/2021 11:26:31 12/14/19 22 12/13/2021 COMP. METAB OLIC PANEL ALT 43 U/L 6-63 Not Available [address], 93308, 12/13/2021 11:26:31 12/14/19 22 12/13/2021 COMP. METAB OLIC PANEL alk. phos. 162 U/L 50-136 high Not Available [address], 09063, 12/13/2021 11:26:31 12/14/19 22 12/13/2021 C-JAIRO CTIVE PROTE IN-QU ANTIT ATIVE C-reactive protein -quant <2.0 mg/L 0.0-9. 0 < Verif ied by maryanne interiano Not Available [address], 45999, 12/13/2021 11:33:38 12/14/1912/13/2021 HGB A1C hemoglobin A1C 6.5 % 4.8-6. 0 high Goal: <7% in Patie nts with Diabe tasneem An A1c betwe en 5.7-6 .4% is ident ified as pre-d iabet es and sugge sts risk for progr essio n to diabe tasneem Two a1c value s of 6.5% or highe r is consi stent with a diagn osis of diabe tasneem but may need furth er confi rmati on Not Available [address], 51658, 12/13/2021 11:53:25 12/14/19 22 12/13/2021 HGB A1C estimated average glucose 139.9 mg/dL Not Available [address], 69370, 12/13/2021 11:53:25 12/14/19 22 12/13/2021 ESR sed rate 12.0 0.0-15 .0 Not Available [address], 45839, 12/13/2021 12:09:17 09/04/19 23 09/03/2022 CBC WBC 6.56 K/? ? ?L 3.98-1 0.04 Not Available [address], 70206, 09/03/2022 10:20:14 09/04/19 23 09/03/2022 CBC RBC 4.67 M/? ? ?L 3.93-5 .22 Not Available [address], 72858, 09/03/2022 10:20:14 09/04/19 23 09/03/2022 CBC HGB 13.1 g/dL 11.2-1 5.7 Not Available [address], 81532, 09/03/2022 10:20:14 09/04/19 23 09/03/2022 CBC HCT 41.3 % 34.1-4 4.9 Not Available [address], 70252, 09/03/2022 10:20:14 09/04/19 23 09/03/2022 CBC MCV 88.4 fL 79.4-9 4.8 Not Available [address], 71754, 09/03/2022 10:20:14 09/04/19 23 09/03/2022 CBC MCH 28.1 pg 25.6-3 2.2 Not Available [address], 32380, 09/03/2022 10:20:14 09/04/19 23 09/03/2022 CBC MCHC 31.7 g/dL 32.2-3 5.5 low Not Available [address], 88605, 09/03/2022 10:20:14 09/04/19 23 09/03/2022 CBC plt 340 K/? ? ?L 182-36 9 Not Available [address], 83158, 09/03/2022 10:20:14 09/04/19 23 09/03/2022 CBC MPV 10.3 fL 9.4-12 .3 Not Available [address], 36195, 09/03/2022 10:20:14 09/04/19 23 09/03/2022 CBC neut% 46.2 % 34.0-7 1.1 Not Available [address], 44526, 09/03/2022 10:20:14 09/04/19 23 09/03/2022 CBC neut# 3.03 1.56-6 .13 Not Available [address], 78214, 09/03/2022 10:20:14 09/04/19 23 09/03/2022 CBC lymph % 40.2 % 19.3-5 1.7 Not Available [address], 21435, 09/03/2022 10:20:14 09/04/19 23 09/03/2022 CBC lymph # 2.64 K/? ? ?L 1.18-3 .74 Not Available [address], 68491, 09/03/2022 10:20:14 09/04/19 23 09/03/2022 CBC mono% 7.6 % 4.7-12 .5 Not Available [address], 96252, 09/03/2022 10:20:14 09/04/19 23 09/03/2022 CBC mono# 0.50 0.24-0 .56 Not Available [address], 65297, 09/03/2022 10:20:14 09/04/19 23 09/03/2022 CBC eo% 5.3 % 0.7-5. 8 Not Available [address], 03794, 09/03/2022 10:20:14 09/04/19 23 09/03/2022 CBC eo# 0.35 0.04-0 .36 Not Available [address], 15506, 09/03/2022 10:20:14 09/04/19 23 09/03/2022 CBC baso% 0.5 % 0.1-1. 2 Not Available [address], 65565, 09/03/2022 10:20:14 09/04/19 23 09/03/2022 CBC baso# 0.03 0.00-0 .08 Not Available [address], 28369, 09/03/2022 10:20:14 09/04/19 23 09/03/2022 CBC RDW-CV 12.6 % 11.7-1 4.4 Not Available [address], 69589, 09/03/2022 10:20:14 09/04/19 23 09/03/2022 CBC Ig% 0.200 % 0.000- 1.500 Ig % >0.5 Indic ates possi ble Left Shift Not Available [address], 48832, 09/03/2022 10:20:14 09/04/19 23 09/03/2022 CBC Ig# 0.010 0.000- 0.093 Not Available [address], 04449, 09/03/2022 10:20:14 09/04/19 23 09/03/2022 CBC NRBC% 0.0 % 0.0-0. 2 Not Available [address], 46708, 09/03/2022 10:20:14 09/04/19 23 09/03/2022 CBC NRBC# 0.000 0.000- 0.012 Not Available [address], 01446, 09/03/2022 10:20:14 09/04/19 23 09/03/2022 MARCELO TIN ferritin 85 NG/mL 15-200 Not Available [address], 96621, 09/03/2022 10:55:46 09/04/19 23 09/03/2022 COMP. METAB OLIC PANEL glucose 117 mg/dL 70-100 high Not Available [address], 43068, 09/03/2022 11:34:15 09/04/19 23 09/03/2022 COMP. METAB OLIC PANEL BUN 15 mg/dL 7-18 Not Available [address], 02578, 09/03/2022 11:34:15 09/04/19 23 09/03/2022 COMP. METAB OLIC PANEL creatinine 0.6 mg/dL 0.8-1. 3 low Not Available [address], 03832, 09/03/2022 11:34:15 09/04/19 23 09/03/2022 COMP. METAB OLIC PANEL B/C 25.0 ratio Not Available [address], 41639, 09/03/2022 11:34:15 09/04/19 23 09/03/2022 COMP. METAB OLIC PANEL GFR >=60ML /MIN mL/mi n normal >=60m L/min - Almita l or midly reduc ed <60mL /min- Decre ased kidne y funct ion <15mL /min - Kidne y failu re Cr y [facility] al [facility] calcu lates estim ated Glome rular Filtr ation Rate (eGFR ) using the Chron ic Kidne y Disea se Epide miolo gy Colla borat ion (CKD- EPI) Equat ion (Cristina r et. al 2020) as recom mary d by the Natio nal Kidne y Found ation . eGFR is based on age, serum creat inine , and sex. CKD-E PI does not calcu late eGFR by race, does not apply to child jada (age <18 years ), and shoul d not be used in pregn marilyn. Not Available [address], [address], 09/03/2022 11:34:15 09/04/19 23 09/03/2022 COMP. METAB OLIC PANEL sodium 140 mmol/ L 136-14 5 Not Available [address], [address], 09/03/2022 11:34:15 09/04/19 23 09/03/2022 COMP. METAB OLIC PANEL potassium 4.2 mmol/ L 3.5-5. 1 Not Available [address], [address], 09/03/2022 11:34:15 09/04/19 23 09/03/2022 COMP. METAB OLIC PANEL chloride 102 mmol/ L 96-107 Not Available [address], [address], 09/03/2022 11:34:15 09/04/19 23 09/03/2022 COMP. METAB OLIC PANEL anion gap 10.9 5.0-15 .0 Not Available [address], [address], 09/03/2022 11:34:15 09/04/19 23 09/03/2022 COMP. METAB OLIC PANEL CO2 27 mmol/ L 21-32 Not Available [address], [address], 09/03/2022 11:34:15 09/04/19 23 09/03/2022 COMP. METAB OLIC PANEL calcium 9.7 mg/dL 8.5-10 .3 Not Available [address], [address], 09/03/2022 11:34:15 09/04/19 23 09/03/2022 COMP. METAB OLIC PANEL total protein 7.5 g/dL 6.4-8. 2 Not Available [address], [address], 09/03/2022 11:34:15 09/04/19 23 09/03/2022 COMP. METAB OLIC PANEL albumin 3.8 g/dL 3.4-5. 0 Not Available [address], [address], 09/03/2022 11:34:15 09/04/19 23 09/03/2022 COMP. METAB OLIC PANEL globulin 3.7 g/dL Not Available [address], [address], 09/03/2022 11:34:15 09/04/19 23 09/03/2022 COMP. METAB OLIC PANEL A/G 1.0 ratio 0.8-2. 0 Not Available [address], [address], 09/03/2022 11:34:15 09/04/19 23 09/03/2022 COMP. METAB OLIC PANEL total bilirubin 0.20 mg/dL 0.00-1 .00 Not Available [address], [address], 09/03/2022 11:34:15 09/04/19 23 09/03/2022 COMP. METAB OLIC PANEL AST 33 U/L 0-37 Not Available [address], [address], 09/03/2022 11:34:15 09/04/19 23 09/03/2022 COMP. METAB OLIC PANEL ALT 93 U/L 6-63 high Not Available [address], [address], 09/03/2022 11:34:15 09/04/19 23 09/03/2022 COMP. METAB OLIC PANEL alk. phos. 150 U/L 50-136 high Not Available [address], [address], 09/03/2022 11:34:15 09/04/19 23 09/03/2022 LIPID PANEL cholesterol 218 mg/dL <200 mg/dl Rubi able 200-2 39 mg/dl Borde rline High >240 mg/dl High Not Available [address], [address], 09/03/2022 11:34:16 09/04/19 23 09/03/2022 LIPID PANEL triglyceride s 163 mg/dL <150 mg/dL Almita l 150-1 99 mg/dL Borde rline High 200-4 99 mg/dL High >500 mg/dL Very High Not Available [address], [address], 09/03/2022 11:34:16 09/04/19 23 09/03/2022 LIPID PANEL direct HDL 48 mg/dL <40 mg/dl - Major Risk for CHD >60 mg/dl - Negat michael Risk for CHD Not Available [address], [address], 09/03/2022 11:34:16 09/04/19 23 09/03/2022 IRON PANEL iron 82 ug/dL 35-150 Not Available [address], [address], 09/03/2022 11:34:17 09/04/19 23 09/03/2022 IRON PANEL T.I.B.C. 319 ug/dL 250-45 0 Not Available [address], [address], 09/03/2022 11:34:17 09/04/19 23 09/03/2022 IRON PANEL % saturation 25.7 % Not Available [address], [address], 09/03/2022 11:34:17 09/04/1909/03/2022 LDL - CALCU LATED LDL - calculated 137.4 RISK CATEG ORY LDL GOAL _ CHD or CHD Risk Equiv alent s <100 mg/dl (10-y ear risk >20%) 2+ Risk Facto rs <130 mg/dl (10-y ear risk <= 20%) 0-1 Risk Facto r? <160 mg/dl ? Almos t all peopl e with 0-1 risk facto r have a 10 year risk <10%, thus 10 year risk asses ment in peopl e with 0-1 risk facto r is not neces ashli. Not Available [address], [address], 09/03/2022 11:34:18 09/04/19 23 09/03/2022 HGB A1C hemoglobin A1C 6.8 % 4.8-6. 0 high Goal: <7% in Patie nts with Diabe tasneem An A1c betwe en 5.7-6 .4% is ident ified as pre-d iabet es and sugge sts risk for progr essio n to diabe tasneem Two a1c value s of 6.5% or highe r is consi stent with a diagn osis of diabe tasneem but may need furth er confi rmati on Not Available [address], [address], 09/03/2022 11:51:15 09/04/19 23 09/03/2022 HGB A1C estimated average glucose 148.5 mg/dL Not Available [address], [address], 09/03/2022 11:51:15 09/04/19 23 09/04/2022 TSH TSH 4.65 mIU/L high Refer ence Range > or = 20 Years 0.40- 4.50 Pregn marilyn Range s First trime ster 0.26- 2.66 Secon d trime ster 0.55- 2.73 Third trime ster 0.43- 2.91 Not Available [employer] [facility] [address], [place], [address], 09/04/2022 08:58:00 01/22/20 23 01/21/2023 COMP. METAB OLIC PANEL glucose 111 mg/dL 70-100 high Not Available [address], [address], 01/21/2023 11:41:27 01/22/20 23 01/21/2023 COMP. METAB OLIC PANEL BUN 16 mg/dL 7-18 Not Available [address], [address], 01/21/2023 11:41:27 01/22/20 23 01/21/2023 COMP. METAB OLIC PANEL creatinine 0.6 mg/dL 0.8-1. 3 low Not Available [address], [address], 01/21/2023 11:41:27 01/22/20 23 01/21/2023 COMP. METAB OLIC PANEL B/C 26.7 ratio Not Available [address], [address], 01/21/2023 11:41:27 01/22/20 23 01/21/2023 COMP. METAB OLIC PANEL GFR >=60ML /MIN mL/mi n normal >=60m L/min - Almita l or midly reduc ed <60mL /min- Decre ased kidne y funct ion <15mL /min - Kidne y failu re Cr y Medic al Group calcu lates estim ated Glome rular Filtr ation Rate (eGFR ) using the Chron ic Kidne y Disea se Epide miolo gy Colla borat ion (CKD- EPI) Equat ion (Cristina r et. al 2020) as recom mary d by the Natio nal Kidne y Found ation . eGFR is based on age, serum creat inine , and sex. CKD-E PI does not calcu late eGFR by race, does not apply to child jada (age <18 years ), and shoul d not be used in pregn marilyn. Not Available [address], [address], 01/21/2023 11:41:27 01/22/20 23 01/21/2023 COMP. METAB OLIC PANEL sodium 142 mmol/ L 136-14 5 Not Available [address], [address], 01/21/2023 11:41:27 01/22/20 23 01/21/2023 COMP. METAB OLIC PANEL potassium 4.5 mmol/ L 3.5-5. 1 Not Available [address], [address], 01/21/2023 11:41:27 01/22/20 23 01/21/2023 COMP. METAB OLIC PANEL chloride 104 mmol/ L 96-107 Not Available [address], [address], 01/21/2023 11:41:27 01/22/20 23 01/21/2023 COMP. METAB OLIC PANEL anion gap 11.5 5.0-15 .0 Not Available [address], [address], 01/21/2023 11:41:27 01/22/20 23 01/21/2023 COMP. METAB OLIC PANEL CO2 27 mmol/ L 21-32 Not Available [address], [address], 01/21/2023 11:41:27 01/22/20 23 01/21/2023 COMP. METAB OLIC PANEL calcium 9.9 mg/dL 8.5-10 .3 Not Available [address], [address], 01/21/2023 11:41:27 01/22/20 23 01/21/2023 COMP. METAB OLIC PANEL total protein 8.0 g/dL 6.4-8. 2 Not Available [address], [address], 01/21/2023 11:41:27 01/22/20 23 01/21/2023 COMP. METAB OLIC PANEL albumin 3.9 g/dL 3.4-5. 0 Not Available [address], [address], 01/21/2023 11:41:27 01/22/20 23 01/21/2023 COMP. METAB OLIC PANEL globulin 4.1 g/dL Not Available [address], [address], 01/21/2023 11:41:27 01/22/20 23 01/21/2023 COMP. METAB OLIC PANEL A/G 1.0 ratio 0.8-2. 0 Not Available [address], [address], 01/21/2023 11:41:27 01/22/20 23 01/21/2023 COMP. METAB OLIC PANEL total bilirubin 0.20 mg/dL 0.00-1 .00 Not Available [address], [address], 01/21/2023 11:41:27 01/22/20 23 01/21/2023 COMP. METAB OLIC PANEL AST 26 U/L 0-37 Not Available [address], [address], 01/21/2023 11:41:27 01/22/20 23 01/21/2023 COMP. METAB OLIC PANEL ALT 57 U/L 6-63 Not Available [address], [address], 01/21/2023 11:41:27 01/22/20 23 01/21/2023 COMP. METAB OLIC PANEL alk. phos. 162 U/L 50-136 high Not Available [address], [address], 01/21/2023 11:41:27 01/22/20 23 01/21/2023 HGB A1C hemoglobin A1C 6.4 % 4.8-6. 0 high Goal: <7% in Patie nts with Diabe tasneem An A1c betwe en 5.7-6 .4% is ident ified as pre-d iabet es and sugge sts risk for progr essio n to diabe tasneem Two a1c value s of 6.5% or highe r is consi stent with a diagn osis of diabe tasneem but may need furth er confi rmati on Not Available [address], [address], 01/21/2023 11:57:24 01/22/20 23 01/21/2023 HGB A1C estimated average glucose 137.0 mg/dL Not Available [address], [address], 01/21/2023 11:57:24 01/22/20 23 01/21/2023 FREE T4 free T4 1.01 NG/dL 0.75-1 .54 Not Available [address], [address], 01/21/2023 14:01:37 01/22/20 23 01/21/2023 TSH TSH 2.88 uIU/m L 0.50-6 .00 The Ameri can Colle ge of Endoc rinol ogy and Ameri can Thyro id Assoc iatio n recom mend goal TSH value s betwe en 0.4-4 .0 mIU/m L. Not Available [address], [address], 01/21/2023 14:21:51 04/27/1904/27/2024 CBC WBC 6.59 K/? ? ?L 3.98-1 0.04 Not Available [address], [address], 04/27/2024 15:49:21 04/27/1904/27/2024 CBC RBC 4.28 M/? ? ?L 3.93-5 .22 Not Available [address], [address], 04/27/2024 15:49:21 04/27/1904/27/2024 CBC HGB 11.8 g/dL 11.2-1 5.7 Not Available [address], [address], 04/27/2024 15:49:21 04/27/1904/27/2024 CBC HCT 37.2 % 34.1-4 4.9 Not Available [address], [address], 04/27/2024 15:49:21 04/27/1904/27/2024 CBC MCV 86.9 fL 79.4-9 4.8 Not Available [address], [address], 04/27/2024 15:49:21 04/27/1904/27/2024 CBC MCH 27.6 pg 25.6-3 2.2 Not Available [address], [address], 04/27/2024 15:49:21 04/27/1904/27/2024 CBC MCHC 31.7 g/dL 32.2-3 5.5 low Not Available [address], [address], 04/27/2024 15:49:21 04/27/1904/27/2024 CBC plt 302 K/? ? ?L 182-36 9 Not Available [address], [address], 04/27/2024 15:49:21 04/27/1904/27/2024 CBC MPV 10.5 fL 9.4-12 .3 Not Available [address], [address], 04/27/2024 15:49:21 04/27/1904/27/2024 CBC neut% 61.0 % 34.0-7 1.1 Not Available [address], [address], 04/27/2024 15:49:21 04/27/1904/27/2024 CBC neut# 4.02 1.56-6 .13 Not Available [address], [address], 04/27/2024 15:49:21 04/27/1904/27/2024 CBC lymph % 26.7 % 19.3-5 1.7 Not Available [address], [address], 04/27/2024 15:49:21 04/27/1904/27/2024 CBC lymph # 1.76 K/? ? ?L 1.18-3 .74 Not Available [address], [address], 04/27/2024 15:49:21 04/27/1904/27/2024 CBC mono% 7.4 % 4.7-12 .5 Not Available [address], [address], 04/27/2024 15:49:21 04/27/19 25 04/27/2024 CBC mono# 0.49 0.24-0 .56 Not Available [address], [address], 04/27/2024 15:49:21 04/27/19 25 04/27/2024 CBC eo% 4.4 % 0.7-5. 8 Not Available [address], [address], 04/27/2024 15:49:21 04/27/19 25 04/27/2024 CBC eo# 0.29 0.04-0 .36 Not Available [address], [address], 04/27/2024 15:49:21 04/27/19 25 04/27/2024 CBC baso% 0.3 % 0.1-1. 2 Not Available [address], [address], 04/27/2024 15:49:21 04/27/19 25 04/27/2024 CBC baso# 0.02 0.00-0 .08 Not Available [address], [address], 04/27/2024 15:49:21 04/27/1904/27/2024 CBC RDW-CV 13.1 % 11.7-1 4.4 Not Available [address], [address], 04/27/2024 15:49:21 04/27/1904/27/2024 CBC Ig% 0.200 % 0.000- 1.500 Ig % >0.5 Indic ates possi ble Left Shift Not Available [address], [address], 04/27/2024 15:49:21 04/27/19 25 04/27/2024 CBC Ig# 0.010 0.000- 0.093 Not Available [address], [address], 04/27/2024 15:49:21 04/27/19 25 04/27/2024 CBC NRBC% 0.0 % 0.0-0. 2 Not Available [address], [address], 04/27/2024 15:49:21 04/27/19 25 04/27/2024 CBC NRBC# 0.000 0.000- 0.012 Not Available [address], [address], 04/27/2024 15:49:21 04/27/19 25 04/27/2024 HGB A1C hemoglobin A1C 6.3 % 4.8-6. 0 high Goal: <7% in Patie nts with Diabe tasneem An A1c betwe en 5.7-6 .4% is ident ified as pre-d iabet es and sugge sts risk for progr essio n to diabe tasneem Two a1c value s of 6.5% or highe r is consi stent with a diagn osis of diabe tasneem but may need furth er confi rmati on Not Available [address], [address], 04/27/2024 16:01:01 04/27/19 25 04/27/2024 HGB A1C estimated average glucose 134.1 mg/dL Not Available [address], [address], 04/27/2024 16:01:01 04/27/19 25 04/28/2024 TSH TSH 2.10 uIU/m L 0.50-6 .00 The Ameri can Colle ge of Endoc rinol ogy and Ameri can Thyro id Assoc iatio n recom mend goal TSH value s betwe en 0.4-4 .0 mIU/m L. Not Available [address], [address], 04/28/2024 11:59:40 04/27/19 25 04/29/2024 COMP. METAB OLIC PANEL glucose 147 mg/dL 70-100 high Not Available [address], [address], 04/29/2024 09:14:45 04/27/19 25 04/29/2024 COMP. METAB OLIC PANEL BUN 12 mg/dL 7-18 Not Available [address], [address], 04/29/2024 09:14:45 04/27/19 25 04/29/2024 COMP. METAB OLIC PANEL creatinine 0.7 mg/dL 0.8-1. 3 low Not Available [address], [address], 04/29/2024 09:14:45 04/27/19 25 04/29/2024 COMP. METAB OLIC PANEL B/C 17.1 ratio Not Available [address], [address], 04/29/2024 09:14:45 04/27/19 25 04/29/2024 COMP. METAB OLIC PANEL GFR >=60ML /MIN mL/mi n normal >=60m L/min - Almita l or midly reduc ed <60mL /min- Decre ased kidne y funct ion <15mL /min - Kidne y failu re Cr y Medic al Group calcu lates estim ated Glome rular Filtr ation Rate (eGFR ) using the Chron ic Kidne y Disea se Epide miolo gy Colla borat ion (CKD- EPI) Equat ion (Cristina r et. al 2020) as recom mary d by the Natio nal Kidne y Found ation . eGFR is based on age, serum creat inine , and sex. CKD-E PI does not calcu late eGFR by race, does not apply to child jada (age <18 years ), and shoul d not be used in pregn marilyn. Not Available [address], [address], 04/29/2024 09:14:45 04/27/19 25 04/29/2024 COMP. METAB OLIC PANEL sodium 139 mmol/ L 136-14 5 Not Available [address], [address], 04/29/2024 09:14:45 04/27/19 25 04/29/2024 COMP. METAB OLIC PANEL potassium 4.0 mmol/ L 3.5-5. 1 Not Available [address], [address], 04/29/2024 09:14:45 04/27/19 25 04/29/2024 COMP. METAB OLIC PANEL chloride 105 mmol/ L 96-107 Not Available [address], [address], 04/29/2024 09:14:45 04/27/19 25 04/29/2024 COMP. METAB OLIC PANEL anion gap 5.2 5.0-15 .0 Not Available [address], [address], 04/29/2024 09:14:45 04/27/19 25 04/29/2024 COMP. METAB OLIC PANEL CO2 29 mmol/ L 21-32 Not Available [address], [address], 04/29/2024 09:14:45 04/27/19 25 04/29/2024 COMP. METAB OLIC PANEL calcium 9.3 mg/dL 8.5-10 .3 Not Available [address], [address], 04/29/2024 09:14:45 04/27/19 25 04/29/2024 COMP. METAB OLIC PANEL total protein 7.2 g/dL 6.4-8. 2 Not Available [address], [address], 04/29/2024 09:14:45 04/27/19 25 04/29/2024 COMP. METAB OLIC PANEL albumin 3.6 g/dL 3.4-5. 0 Not Available [address], [address], 04/29/2024 09:14:45 04/27/1904/29/2024 COMP. METAB OLIC PANEL globulin 3.6 g/dL Not Available [address], [address], 04/29/2024 09:14:45 04/27/1904/29/2024 COMP. METAB OLIC PANEL A/G 1.0 ratio 0.8-2. 0 Not Available [address], [address], 04/29/2024 09:14:45 04/27/1904/29/2024 COMP. METAB OLIC PANEL total bilirubin 0.10 mg/dL 0.00-1 .00 Not Available [address], [address], 04/29/2024 09:14:45 04/27/1904/29/2024 COMP. METAB OLIC PANEL AST 17 U/L 0-37 Not Available [address], [address], 04/29/2024 09:14:45 04/27/1904/29/2024 COMP. METAB OLIC PANEL ALT 37 U/L 6-63 Not Available [address], [address], 04/29/2024 09:14:45 04/27/1904/29/2024 COMP. METAB OLIC PANEL alk. phos. 138 U/L 50-136 high Not Available [address], [address], 04/29/2024 09:14:45 04/27/1904/29/2024 IRON PANEL iron 40 ug/dL 35-150 Not Available [address], [address], 04/29/2024 09:14:46 04/27/19 25 04/29/2024 IRON PANEL T.I.B.C. 284 ug/dL 250-45 0 Not Available [address], [address], 04/29/2024 09:14:46 04/27/19 25 04/29/2024 IRON PANEL % saturation 14.1 % Not Available [address], [address], 04/29/2024 09:14:46 04/27/19 25 05/02/2024 ALKAL INE PHOSP HATAS E ISOEN ZYMES alkaline phosphatase 123 U/L 37-153 Not Available [facility] [address], [address], 05/02/2024 18:07:46 04/27/19 25 05/02/2024 ALKAL INE PHOSP HATAS E ISOEN ZYMES intestinal isoenzymes 0 % 1-24 low Not Available [facility] [address], [address], 05/02/2024 18:07:46 04/27/19 25 05/02/2024 ALKAL INE PHOSP HATAS E ISOEN ZYMES bone isoenzymes 31 % 28-66 Not Available [employer] [facility] [address], [address], 05/02/2024 18:07:46 04/27/19 25 05/02/2024 ALKAL INE PHOSP HATAS E ISOEN ZYMES liver isoenzymes 69 % 25-69 Not Available [employer] [facility] [address], [address], 05/02/2024 18:07:46 04/27/19 25 05/02/2024 ALKAL INE PHOSP HATAS E ISOEN ZYMES placental isoenzymes 0 % <=0 Not Available [employer] [facility] [address] [place], [address], 05/02/2024 18:07:46 04/27/19 25 05/02/2024 ALKAL INE PHOSP HATAS E ISOEN ZYMES macrohepatic isoenzymes 0 % <=0 Not Available [facility] [address], [place], [address], 05/02/2024 18:07:46 04/27/19 25 05/02/2024 GGT GGT 24 U/L 3-70 normal Not Available [facility] [address], [place], [address], 05/02/2024 18:07:47 07/18/19 23 07/16/2022 MAMMO , scree vane, tomos ynthe sis, bilat eral MAMMOG PRABHU, SCREEN ING, TOMOSY NTHESI S, BILATE RAL: 023. BI-RAD S: 1 CLINIC AL: 47-yea r old Female for Bilate ral Screen ing Mammog prabhu. Curren t report ed family histor y of breast cancer : sister . PRIOR EXAMS: Review ed previo us images from 2021, 2020. MAMMOG YOSEF TECHNI QUE: 3D mammog yosef (tomos ynthes is) and 2D mammog yosef (C-vie w) images are genera mariel. Images review ed with a CAD system . DENSIT Y c. Hetero geneou sly dense, which may obscur e small masses . MAMMOG YOSEF FINDIN GS Bilate ral: No suspic ious mass, asymme try, microc alcifi cation , or other abnorm ality seen. CONCLU JANNETTE * No eviden ce of malign marilyn. RECOMM ENDATI ONS Bilate ral * Annual screen ing mammog yosef. OVERAL L ASSESS MENT CATEGO RY BI-RAD S-1: Negati ve. The [employer] an [employer] e [employer] Rad[employer] ogy recomm ends annual screen ing mammog yosef beginn ing at age 40 for women with averag e risk of breast cancer . ELECTR ONICAL LY SIGNED : Tad Ernst M.D. on 2022 at 09:38: 55 AM Billy franco Physic christy: Tad Ernst [facility] (Imaging) [address] [place], [address], 07/17/2022 10:45:40 08/19/19 24 08/18/2023 MAMMO , scree vane, tomos ynthe sis, bilat eral MAMMO, SCREEN , MARLYN, BILAT: 024. BI-RAD S: 1 CLINIC AL: 48-yea r old Female for Bilate ral Screen ing Mammog prabhu. Vikasher- [place] lifeti me risk of 18.9%. Matthias dominguez report ed family histor y of breast cancer : sister . PRIOR EXAMS: Review ed previo us images from 2022, 2021, 2020 and 2018. MAMMOG YOSEF TECHNI QUE: 3D mammog yosef (tomos ynthes is) and 2D mammog yosef (C-vie w) images are genera mariel. Images review ed with a CAD system . DENSIT Y C. Hetero geneou sly dense, which may obscur e small masses . MAMMOG YOSEF FINDIN GS Bilate ral: No suspic ious mass, asymme try, microc alcifi cation , or other abnorm ality seen. CONCLU SIONNo eviden ce of malign marilyn. RECOMM ENDATI ONS Bilate ralAnn ual screen ing mammog yosef. ADMINI STRATI VE: A lay summar y was mailed to your patien t yo james the result s and recomm endati ons for follow -up. OVERAL L ASSESS MENT CATEGO RY BI-RAD S-1: Negati ve. The Americ an [employer] e of Radiol ogy recomm ends annual screen ing mammog yosef beginn ing at age 40 for women with averag e risk of breast cancer . ELECTR ONICAL LY SIGNED : Cipriano Phelan ms, M.D. on 2023 at 07:50: 21 AM Billy Edwards christy: Cipriano Phelan ms [address] (Imaging) [address] [place], [address], 08/19/2023 08:06:17 03/31/19 25 03/30/2024 CT, abdom en + pelvi s No observ ation record ed. [address], [address], 03/31/2024 10:30:33 03/31/19 25 03/31/2024 XR, chest No observ ation record ed. [address] [place], [address], 03/31/2024 10:30:33 Result Notes None recorded. Problems Name Problem SNOMED Code Status Onset Date Resolution Date Notes Provider Name and Address Organization Details Recorded Time Finger joint effusion 100018438 Completed 06/20/2014 Aquiles Delgado NP [address] [place], [place] [address], [address], [facility] 6 16:18:18 Tendinit is of finger 137179337 Completed 06/20/2014 Aquiles Delgado NP [address] [place], [place] [address], [address], [facility] 7 15:19:01 Tendinit is of finger 038613987 Completed 03/12/2016 Aquiles Delgado NP [address] [place], [place] [address], [address], [facility] 7 15:19:01 Foot pain 79892566 Completed 03/12/2016 Aquiles Delgado NP [address] [place], [place] [address], [address], [facility] 7 15:18:58 [place]: positive 338416447 Active 2015 Quantifer on Gold is NEGATIVE. FALSE POSITIVE PPD. 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 Active 2007 Shahid Ortiz MD [address] [place], [place] [address], [address], [facility] 6 17:50:26 Urinary tract infectio us disease 22681331 Completed 10/16/2011 Aquiles Delgado NP [address] [place], [place] [address], [address], [facility] 6 16:18:18 Lymphade nopathy 96913776 Completed 200701/19/2013 Aquiles Delgado NP [address] [place], [place] [address], [address], [facility] 6 16:18:18 Inflamma tory polyarth ropathy 885347619 Completed 06/20/2014 Aquiles Delgado NP [address] [place], [place] [address], [address], [facility] 6 16:18:18 Vitamin D deficien cy 87218298 Completed 06/20/2014 Aquiles Delgado NP [facility] [place], [address], [facility] 6 16:18:17 Menstrua tion finding Completed 200701/19/2013 Aquiles Delgado NP [address] [place], [place] [address], [address], [facility] 6 16:18:18 Onychomy cosis 528875121 Completed 200610/16/2011 Aquiles Delgado NP [facility] [place], [address], [facility] 6 16:18:17 Mycoplas ma infectio n 032084782 Completed 06/20/2014 Aquiles Delgado NP [address] [place], [address], [facility] 6 16:18:17 Kendragladysshaunna n 1515496 Completed 200601/19/2013 Aquiles Delgado NP [address] [place], [place] [address], [address], [facility] 6 16:18:18 Joint pain 33045362 Completed 200710/16/2011 Aquiles Delgado NP [facility] [place], [address], [facility] 6 16:18:18 Synoviti s/tenosy novitis - hand 150405215 Completed 01/19/2013 Aquiles Delgado NP [facility] [place], [address], [facility] 6 16:18:18 Female genital organ symptoms 692422434 Completed 01/19/2013 Aquiles Delgado NP [facility] [place], [address], [facility] 6 16:18:18 Anemia 554077526 Active 2007 Shahid Ortiz MD [address] [place] [address] [place], [address], [facility] 6 17:50:26 Arthriti s 7433967 Completed 06/20/2014 Aquiles Delgado NP [address] [place], [place] [address], [address], [facility] 6 16:18:18 Vaginiti s and vulvovag initis Completed 10/16/2011 Aquiles Delgado NP [address] [place], [place] [address], [address], [facility] 6 16:18:18 Acquired hypothyr oidism 952016141 Active Aquiles Delgado NP [facility] [place], [address], [facility] 6 16:18:17 Problem Notes None recorded. Procedures Surgical History Date Name Laterality Status Provider Name and Address Organization Details Recorded Time 0 prevention-car diovascular risk reduction counseling completed Laura Ruvalcaba [facility] 01/31/2020 15:23:36 0 prevention-aida ual alcohol misuse screening completed Laura Ruvalcaba [facility] 01/31/2020 15:23:36 0 Generic Procedure Template completed Shahid Ortiz MD [address] [place] [address], [address], [facility] 03/31/2019 07:43:27 9 Shoulder (Right) Injection completed Shahid Ortiz MD [address] [place] [address], [address], [facility] 02/07/2019 18:10:14 9 Generic Procedure Template completed Shahid Ortiz MD [address] [place] [address], [address], [facility] 06/08/2018 07:25:28 7 Refraction completed Ashia Gale OD [address] [place] [address], [address], [facility] 07/16/2016 15:09:04 7 Generic Procedure Template completed Shahid Ortiz MD [address] [place] [address], [address], [facility] 06/20/2016 16:47:05 5 Trigger Finger Injection RB completed Sahhid Ortiz MD [address] [place] [address], [address], [facility] 11/21/2014 18:11:57 4 Trigger Finger Injection RB completed Shahid Ortiz MD [address] [place] [address], [address], [facility] 08/08/2013 16:14:17 4 Generic Procedure Template completed Shahid Ortiz MD [address] [place] [address], [address], [facility] 03/10/2013 15:35:39 3 Trigger Finger Injection RB completed Shahid Ortiz MD [address] [place] [address], [address], [facility] 07/15/2012 19:30:47 Imaging Results Imaging Date Name Status LastModified by Organiz ation Details LastModified Time 07/16/2022 MAMMO, screening, tomosynthesis, bilateral completed [facility] (Imaging) [address], [place], [id number], 07/17/2022 10:45:40 08/18/2023 MAMMO, screening, tomosynthesis, bilateral completed [address] (Imaging) [address], [place], [id number], 08/19/2023 08:06:17 03/30/2024 CT, abdomen + pelvis completed [address], [id number], 03/31/2024 10:30:33 03/31/2024 XR, chest completed [address], [id number], 03/31/2024 10:30:33 Procedure Notes None recorded. Medical Equipment None Reported. Allergies No known drug allergies Medications Name Sig Start Date Stop Date Status Note LastModified by Organization Details LastModified Time Prescript ion - Prior Authoriza tion Request 10/06 completed prior authoriz ation to [facility] Not Available Not Available Not Available erythromy radha 5 mg/gm oint active Not Available Not Available Not Available ciproflox acin hcl 500 mg tabs 11/21 completed Not Available Not Available Not Available levothyro xine sodium 50 mcg tabs active Not Available Not Available Not Available phenazopy ridine hcl 200 mg tabs active Not Available Not Available Not Available sulfameth oxazole/t rimethopr im ds 800-160 mg tabs active Not Available Not Available Not Available ciproflox acin hcl 0.3 % soln 11/21 completed Not Available Not Available Not Available hydrocodo ne/acetam inophen 5-325 mgtabs active Not Available Not Available Not Available tobramyci n/dexamet hasone 0.3-0.1 % susp active Not Available Not Available Not Available methotrex ate 2.5 mg tabs active Not Available Not Available Not Available hydroxych loroquine sulfate 200 mg tabs active Not Available Not Available Not Available folic acid 1 mg tabs active Not Available Not Available Not Available prednison e 10 mg tablet TAKE 1 TABLET BY MOUTH EVERY DAY FOR 10 DAYS 10/23 completed Not Available Not Available Not Available ibuprofen 800 mg tablet active Not Available Not Available Not Available hydrocodo ne 5 mg-acetam inophen 325 mg tablet active Not Available Not Available Not Available FreeStyle Lancets 28 gauge active Not Available Not Available Not Available phenazopy ridine 200 mg tablet active Not Available Not Available Not Available prednison e 20 mg tablet 3 tablets daily for 3 days then two tablets daily for 3 days one tablet daily for three days 2011 active Not Available Not Available Not Avai lable Tubersol 5 tub. unit/0.1 mL intraderm al injection solution Take 0.1 mL by intrader mal route. 11/18 completed Not Available Not Available Not Available prednison e 5 mg tablet PLEASE SEE ATTACHED FOR DETAILED DIRECTIO NS 01/28 completed Not Available Not Available Not Available sulfasala zine 500 mg tablet,de layed release 1 po qd for 4 d, then 1 po bid for 4 d , then 2 po bid 12/12 completed Not Available Not Available Not Available clobetaso l 0.05 % topical cream active Not Available Not Available Not Available metronida zole 500 mg tablet Take 1 tablet twice a day by oral route for 7 days. 09/17 completed Not Available Not Available Not Available ciproflox acin 500 mg tablet active Not Available Not Available No t Available sulfameth oxazole 800 mg-trimet hoprim 160 mg tablet TAKE 1 TABLET BY MOUTH TWICE A DAY FOR 5 DAYS UNTIL FINISHED active Not Available Not Available No t Available leflunomi de 20 mg tablet TAKE 1 TABLET EVERY DAY 11/08 completed not taking Not Available Not Available Not Available triamcino lone acetonide 0.1 % topical cream APPLY A THIN LAYER TO THE AFFECTED AREA(S) BY TOPICAL ROUTE 2 TIMES PER DAY active Not Available Not Available No t Available terbinafi ne HCl 250 mg tablet TAKE ONE PILL DAILY FOR 3 WEEKS 08/24 /2023 completed Not Available Not Available Not Available methotrex ate sodium 2.5 mg tablet 7 tabs po weekly 12/12 completed Not Available Not Available Not Available prednison e 1 mg tablet 4 tabs po daily x 3 weeks, then 3 qd for 3 weeks, then 2 qd for 3 wks, then 1 qd for 3 weeks. 01/30 completed Not Available Not Available Not Available ciproflox acin 0.3 % eye drops INSTILL 1 DROP INTO AFFECTED EYE(S) BY OPHTHALM IC ROUTE EVERY 2 HOURSWHI LE AWAKE FOR 2 DAYS THEN 1 DROP EVERY 4 HRS WHILE AWAKE FOR 5 DAYS 2014 active Not Available Not Available Not Avai lable levothyro xine 50 mcg tablet TAKE 1 TABLET BY MOUTH EVERY EVENING ON AN EMPTY STOMACH 2024 active Not Available Not Available Not Avai lable erythromy radha 5 mg/gram (0.5 %) eye ointment APPLY 1 CM RIBBON INTO THE LOWER CONJUNCT IVAL SAC(S) IN THE AFFECTED EYE(S) BY OPHTHALM IC ROUTE once a day bed TIMES PER DAY OU for 7 days 11/08 completed Not Available Not Available Not Available ferrous sulfate 325 mg (65 mg iron) tablet TAKE 1 TABLET BY MOUTH TWICE A DAY active Not Available Not Available No t Available Refresh Classic (PF) 1.4 %-0.6 % eye drops in a dropperet te Q1-2H OU 06/07 completed Not Available Not Available Not Available Tylenol 325 mg tablet PRN active Not Available Not Available Not Available leucovori n calcium 5 mg tablet 2 po weekly approx 12 hrs after methotre xate dose 12/12 completed Not Available Not Available Not Available folic acid 1 mg tablet TAKE 1 TABLET BY MOUTH EVERY DAY 12/12 completed Not Available Not Available Not Available hydroxych loroquine 200 mg tablet TAKE 1 TABLET BY MOUTH TWICE A DAY 08/19 completed Not Available Not Available Not Available ibuprofen 600 mg tablet Take 1 tablet twice a day by oral route with meals. active Not Available Not Available No t Available levofloxa radha 500 mg tablet 04/27 completed Not Available Not Available Not Available Vitamin D2 1,250 mcg (50,000 unit) capsule Take 1 capsule every week by oral route. 2009 active Not Available Not Available Not Avai lable naproxen 500 mg tablet TAKE 1 TABLET BY MOUTH TWICE A DAY FOR 7 DAYS THEN TAKE 1 TABLET EVERY DAY NEEDED FOR PAIN active Not Available Not Available No t Available azithromy radha 1 gram oral packet Take 1 packet (1,000 mg) by oral route dissolve d in 2 ounces of water as a single dose 2009 active Not Available Not Available Not Avai lable tobramyci n 0.3 %-dexamet hasone 0.1 % eye drops,florian pension INSTILL 1 DROP INTO AFFECTED EYE(S) BY OPHTHALM IC ROUTE FOUR TIMES A DAY FOR FIVE DAYS 03/12 completed Not Available Not Available Not Available Alcohol Prep Pads Use twice daily as directed for monitori ng glucose, Dx Code E11.9 active Not Available Not Available No t Available hydrocodo ne 5 mg-acetam inophen 300 mg tablet Take 1 tablet every 4 hours by oral route as needed. active Not Available Not Available No t Available Humira Pen 40 mg/0.8 mL subcutane ous kit 09/08 completed duplicar e Not Available Not Available Not Available Enbrel SureClick 50 mg/mL (1 mL) subcutane ous pen injector Inject 1 mL every week by subcutan eous route. 12/12 completed Not Available Not Available Not Available Pataday 0.2 % eye drops INSTILL 1 DROP INTO AFFECTED EYE(S) BY OPHTHALM IC ROUTE ONCE DAILY 2016 active Not Available Not Available Not Avai lable FreeStyle Lite Meter kit active Not Available Not Available No t Available FreeStyle Lite Strips Use twice daily as directed for monitori ng glucose, Dx Code E11.9 active Not Available Not Available No t Available cholecalc iferol (vitamin D3) 1,250 mcg (50,000 unit) capsule one weekly 2009 active Not Available Not Available Not Avai lable Systane Balance 0.6 % eye drops INSTILL 1 DROP IN BOTH EYES EVERY 4 HOURS 06/07 completed Not Available Not Available Not Available acetylcys teine (PF) 10 % in sterile water eye drops start at 0.5% (instead of 10% acetylcy steine)Q ID OS for 1 week 11/08 completed Not Available Not Available Not Available Humira(CF ) Pen 40 mg/0.4 mL subcutane ous kit INJECT 40 MG (0.4 ML) UNDER THE SKIN EVERY 2 WEEKS active Not Available Not Available No t Available Hyrimoz(C F) Pen 40 mg/0.4 mL subcutane ous pen injector active Not Available Not Available Not Available Vitals Date Recorded Body height Body mass index (BMI) Body weight Oxygen saturation Oxygen saturation in Arterial blood by Pulse oximetry Heart rate Systolic blood pressure Diastolic blood pressure Systolic blood pressure Diastolic blood pressure Provider Name and Address Organization Details Last Updated DateTime 2 157.48 cm 24.1 kg/m2 73929.1 9 g 99 % 99 % 89 /min 132 mm[Hg] 96 mm[Hg] 124 mm[Hg] 93 mm[Hg] Bibi Devlin MA [facility] 2 17:04:53 Date Recorded Body height Body mass index (BMI) Body weight Oxygen saturation Oxygen saturation in Arterial blood by Pulse oximetry Heart rate Systolic blood pressure Diastolic blood pressure Systolic blood pressure Diastolic blood pressure Provider Name and Address Organization Details Last Updated DateTime 3 157.48 cm 24.9 kg/m2 31108.5 6 g 98 % 98 % 94 /min 141 mm[Hg] 100 mm[Hg] 123 mm[Hg] 99 mm[Hg] Bibi Devlin MA [facility] 3 16:17:35 Date Recorded Body height Body mass index (BMI) Body weight Oxygen saturation Oxygen saturation in Arterial blood by Pulse oximetry Heart rate Systolic blood pressure Diastolic blood pressure Provider Name and Address Organization Details Last Updated DateTime 3 157.48 cm 24.1 kg/m2 22145.1 9 g 95 % 95 % 87 /min 122 mm[Hg] 78 mm[Hg] Jacob Benavidez [facility] 3 15:47:50 Date Recorded Body height Body mass index (BMI) Body weight Heart rate Oxygen saturation Oxygen saturation in Arterial blood by Pulse oximetry Systolic blood pressure Diastolic blood pressure Provider Name and Address Organization Details Last Updated DateTime 3 157.48 cm 24.5 kg/m2 86490.3 8 g 93 /min 99 % 99 % 117 mm[Hg] 80 mm[Hg] Steve Long MA [facility] 3 16:44:24 Date Recorded Body weight Oxygen saturation Oxygen saturation in Arterial blood by Pulse oximetry Heart rate Systolic blood pressure Diastolic blood pressure Provider Name and Address Organization Details Last Updated DateTime 5 90579.6 g 97 % 97 % 86 /min 120 mm[Hg] 70 mm[Hg] Stephen nguyen MA [facility] 5 13:38:32 Social History Question Answer Notes LastModified by Organizat ion Details LastModified Time Tobacco Smoking Status Never Smoker 04/27/24 ADALI Mace MA [facility] 04/27/2024 13:33:49 Do You Have An Advance Directive? No [email or web address] Information not available 01/16/2011 What Is Your Level Of Alcohol Consumption? None 04/27/24 [facility] None Information not available 04/27/2024 Do You Wear A Helmet When Biking? Yes Information not available 01/01/2015 What Is Your Level Of Caffeine Consumption? Occasional Coffee Weekly 04/27/24 ADALI de la Information not available 04/27/2024 How Much Tobacco Do You Chew? None Information not available 01/01/2015 What Type Of Diet Are You Following? REGULAR Information not available 01/01/2015 Do You Or Have You Ever Used E-cigarettes Or Vape? Never Used Electronic Cigarettes 04/27/24 [facility] Information not available 04/27/2024 What Is Your Occupation? Parttime [employer] [email or web address] Information not available 06/14/2009 How Many Days In The Past Year Have You Had A Heavy Drinking Consumption (4+ Female, 5+ Male)? 0 [email or web address] Information not available 05/17/2012 Are There Any Guns Present In Your Home? No Information not available 01/01/2015 Live Alone Or With Others? With Others [email or web address] Information not available 01/16/2011 Patient Has Health Care Proxy Signed And In Chart No 03/13/17 Information not available 10/23/2011 Marital Status 2 Sisters Here And One In [place]. Born [facility]11 Information not available 06/14/2009 Mosquito Repellent Used Routinely Yes Information not available 01/01/2015 What Was The Date Of Your Most Recent Tobacco Screening? 04/27/2024 10/23/22 [place] de [place] Information not available 04/27/2024 How Many Children Do You Have? 2 11 Yo Daughter, 10 Yo Son - Ex Helps [email or web address] Information not available 06/14/2009 Seat Belts Used Routinely Yes Information not available 01/01/2015 Smoke Alarm In Home Yes Information not available 01/01/2015 Do You Or Have You Ever Used Smokeless Tobacco? Never Used Smokeless Tobacco 04/27/24 ADALI [place] Information not available 04/27/2024 How Much Tobacco Do You Smoke? No Information not available 01/31/2020 General Stress Level Medium Information not available 01/01/2015 Do You Use Any Illicit Or Recreational Drugs? No Information not available 04/27/2024 Do You Use Sunscreen Routinely? Yes Information not available 01/01/2015 How Many Years Have You Smoked Tobacco? 0 Information not available 01/31/2020 Sex: Unknown Functional Status None recorded. Mental Status None recorded. Family History Relationship Description Onset Age of this Age Resolved Age Notes LastModified by Organization Details LastModified Time Maternal Grandmother Problem radha shay. before she was born [place] Not available 06/22/2015 16:18:47 Paternal Grandmother Problem 110 [place] Not available 2015 16:18:47 Father Problem 29 abduct ed and killed [place] Not available 06/22/2015 16:18:47 Mother Problem in [facility] or [place] Not available 06/22/2015 16:18:47 Sister Malignant tumor of breast 39 [place] Not available 2015 16:18:47 Medical History Condition Response Hypothyroid Y METABOLIC Y Rheumatoid Arthritis Gynecological History Statement/Question Response Current Control Method Tubal Ligat ion Obstetrics History GPAL:G 0 P 0 0 0 0 Immunizations Vaccine Type Date Status Note Provider Name and Address Organization Details Recorded Time Tdap 09/02/19 08 completed Not Available [facility] 01/15/2011 05:21:55 Influenza, split virus, quadrivalent, PF 01/02/20 15 completed Not Available [facility] 03/19/2019 02:32:59 influenza, unspecified formulation 12/01/19 12 completed YOUNG Li, [facility] 05/17/2012 10:03:29 Novel [id number] 9 06/15/19 10 completed Not Available [facility] 03/19/2019 02:32:30 Novel [id number] 9, nasal 06/15/19 10 completed Not Available [facility] 03/19/2019 02:27:37 Influenza, split virus, trivalent, preservative 06/15/19 10 completed Not Available [facility] 03/19/2019 02:17:42 Td (adult), 2 Lf tetanus toxoid, preservative free, adsorbed 12/04/19 22 cancelled patient objection Aquiles Delgado, RAIL DETECTOR CAR OPERATOR [address] [place] [address], [id number], [facility] 12/03/2021 20:40:13 Influenza, split virus, quadrivalent, PF 12/04/19 22 cancelled patient objection Aquiles Delgado, RAIL DETECTOR CAR OPERATOR [address] [place], [address], [facility] 12/03/2021 20:40:13 Influenza, split virus, quadrivalent, PF 03/11/19 23 cancelled patient objection Aquiles Delgado, RAIL DETECTOR CAR OPERATOR [address] [place], [address], [facility] 03/11/2022 16:28:15 COVID-19, mRNA, LNP-S, PF, 30 mcg/0.3 mL dose 05/26/19 21 completed Myra Arias [employer] null, [facility] 07/25/2020 09:32:05 COVID-19, mRNA, LNP-S, PF, 30 mcg/0.3 mL dose 06/16/19 21 completed Myra Arias [employer] null, [facility] 07/25/2020 09:32:25 Td (adult), 2 Lf tetanus toxoid, preservative free, adsorbed 10/24/19 23 completed Carlee Kennedy MD [address] [place] [address], [id number], [facility] 10/28/2022 15:14:24 COVID-19, mRNA, LNP-S, PF, 30 mcg/0.3 mL dose 12/04/19 21 completed YOUNG Omer, [facility] 03/14/2021 15:14:27 Past Encounters Encounter ID Performer Location Encounter Start Date Encounter Closed Date Diagnosis/Indication Diagnosis SNOMED-CT Code Diagnosis ICD10 Code Diagnosis Note [id number] FABIO [facility] [place] [address] [place] [address] 05/07/2006 08:08:35 05/15/2006 07:39:[id number] [place] [address] 05/15/2006 15:20:12 05/15/2006 15:20:20 [id number] FABIO [facility] [place] [address] [place] [address] 06/19/2006 10:04:46 06/22/2006 13:56:[id number] [place] [address] 06/19/2006 11:30:02 06/19/2006 11:30:11 [id number] FABIO [facility] [place] [place] [address] [place] [id number] 09/02/2007 11:24:40 03/22/2008 02:02:[id number] [place] [address] 09/02/2007 12:54:26 09/02/2007 12:54:36 [id number] FABIO [facility] [place] [address] [place] [id number] 09/20/2007 10:46:40 03/22/2008 02:02:[id number] [place] [address] 10/25/2007 10:53:15 10/25/2007 10:53:20 [id number] FABIO [facility] [place] [address] [place] [address] 06/14/2009 09:54:40 06/15/2009 09:15:33 [id number] [facility] , [facility] [address] [place] [address] 06/19/2009 10:09:33 06/20/2009 09:55:39 [id number] FP, [facility] [place]ICE [address] [place] [address] 09/10/2009 10:39:02 09/11/2009 10:22:00 [id number] FP [facility] [place]ICE [address] [place] [address] 11/22/2009 16:01:20 11/23/2009 10:47:35 [id number] FP, [facility] [place]ICE [address] [place] [address] 04/02/2010 10:26:21 04/04/2010 08:31:45 [id number] FP, [facility] [place]ICE [address] [place] [address] 06/11/2010 10:23:50 06/12/2010 08:38:55 [id number] FP [facility] OFFICE [address] [place], [place] [address] 08/14/2010 10:47:29 08/14/2010 17:51:34 [id number] [facility] OFFICE [address] [place] [address] [place] [address] 04/04/2011 14:31:37 04/04/2011 15:14:12 [id number] Radiology , [facility] [address] [place] [id number] 04/04/2011 15:22:41 04/11/2011 15:31:23 [id number] Rheumatol og, [facility] [address] [place] [id number] 07/31/2011 15:01:59 08/01/2011 09:25:25 [id number] Rheumatol ogy, [facility] [address] [place] [address] 09/11/2011 15:09:08 09/11/2011 15:29:04 [id number] FP, [facility], OFFICE [address] [place] [address] [place] [address] 10/23/2011 08:37:04 10/23/2011 10:11:20 [id number] FP, [facility], OFFICE [address] [place] [address] [place] [address] 01/29/2012 14:41:59 01/29/2012 16:10:18 [id number] Rheumatol ogy, [facility] [address] [place] [address] 04/01/2012 15:54:50 04/01/2012 16:19:18 [id number] Monique Martell MD , [facility], OFFICE [address] [place] [address] 05/17/2012 09:31:06 05/18/2012 08:14:28 [id number] Cortney Salcedo [facility] , [address] [address] 05/17/2012 10:45:31 05/18/2012 12:03:20 [id number] [facility], [address] [address] 05/20/2012 14:49:29 05/21/2012 09:53:28 [id number] [facility], [address] [address] 06/01/2012 16:52:05 06/02/2012 10:23:53 [id number] [place] [facility] [place] [address] [address] 07/15/2012 15:38:47 07/15/2012 16:08:51 [id number] [facility], OFFICE [address] [place] [address] 12/20/2012 13:50:52 12/20/2012 14:42:29 Adult health examination [id number] see Risk Assessment and Lifestyle Change Counseling section above Pap due 2014 Immunizati ons UTD Declined flu Counseling [id number] Acquired hypothyroidism 965498435 TSH is up. T4 low. Asymtomati c but not taking meds on empty stomach. Will take meds an hour before meals in am. Will repeat labs in 8 weeks and evaluate effectiven ess of present dose then. Rheumatoid arthritis 47501328 Stable. Followed by Dr. Ortiz. Goiter [id number] ? enlarge d thyroid. R lobe >L. Will get U/S. [id number] Rheumatol alberto, [address] [address] 03/10/2013 14:50:57 03/10/2013 15:20:27 Rheumatoid arthritis 21094958 This patient would appear to have seropositi ve, see CCP positive rheumatoid arthritis that is quite mild at the moment. She is on Plaquenil and IBU. Continue. One symptomati c joint today. No change in medicatio; treat with local injection. Finger joint effusion 708292470 Swelling and efffusion, tenderness L thumb MCP. Local injection today. Long-term drug therapy 383862261 Discussed through garthe r need to monitor eyes when on Plaquenil. Written instructio ns provided. She has appt next month. [id number] Rheumatol [facility] [address] [facility] [place] [address] 06/17/2013 10:15:31 06/21/2013 07:31:05 Rheumatoid arthritis 52727265 This patient has seropositi ve, CCP positive rheumatoid arthritis . It had been quite well-contr olled the past couple of times I saw her. On one or 2 occasions we have injected individual joints. Now, however, there is a generalize d flare. This is very likely related to her discontinu ing the Plaquenil a couple of months ago. We discussed this. For symptom control, I am going to put her on prednisone 15 mg one week, 10 mg one week, 5 mg one week, then stop. She will restart Plaquenil at 300 mg daily and I will want to see her again in 5 or 6 weeks. She may continue taking the ibuprofen. If symptoms are not adequately controlled with the Plaquenil, we will probably want to try adding methotrexa te. [id number] Roxanasteph Sternamanuel Rheumatol [facility] [address] [facility] [place] [address] 08/08/2013 15:44:13 08/09/2013 08:59:34 Rheumatoid arthritis 92769215 This patient has seropositi ve, CCP positive rheumatoid arthritis . Recent flare up related to stopping Plaquenil. Now much better back on the medication . Continue current 300mg/d indefinite ly. Return 4 mo or sooner if needed. Tendinitis of finger 801237174 flexor tenosynovi tis R thumb. Nodular structure that is tender. No actual trigger phenom. This has persisted despite improvemen t at other joints. Try local inj today. [id number] ZANE Presley, [facility], OFFICE [address] [place] [address] 10/04/2013 15:02:44 10/04/2013 15:35:17 Biceps tendinitis 970524487 L bicep tendonitis Advised ice 20-30 min 3-4 x day Naproxen 500 mg bid Given handout with exercises to work on IF no improvemen t in 7-10 days will call Rheumatoid arthritis 95268839 Stable. Followed by Dr. Ortiz. [id number] [facility], OFFICE [address] [place] [address] 12/27/2013 15:11:49 12/27/2013 15:49:58 Screening for malignant neoplasm of cervix 773922008 Adult heal th examination 303013872 see Risk Assessment and Lifestyle Change Counseling section above [facility] pap today Immunizati ons UTD Declined flu Polyp of cervix 66047885 will refer to OSTEOPATHIC MEDICINE TEACHER Acquired hypothyroidism 229417557 TSH good at 2.82 Feeling well [id number] , [facility], OFFICE [address] [place] [address] 06/20/2014 16:48:12 06/20/2014 17:08:24 Urinary tract infectious disease 69645559 UA + leuks, nits Cx from [facility] looks as though Cipro should have covered Given sxd, ua will tx with Bactrim DS bid x 5 day Push fluids f/u if no improvemen t in 72 hours or for fever or back pain. Submit for culture. [id number] Stephen Leach, OD [facility], [address] [address] 09/15/2014 15:10:29 09/15/2014 15:43:14 Corneal ulcer 06753228 peripheral ulcer most likely sterile ulcer [id number] [facility], [address] [address] 09/19/2014 15:01:19 09/20/2014 08:12:48 [id number] Nikkymarshall [facility], [address] [address] 09/26/2014 15:18:21 09/27/2014 07:39:26 [id number] Julieta Pederson [facility], [facility] [address] [facility] [place] [address] 10/04/2014 15:04:01 10/24/2014 03:45:20 Corneal infection 872466474 [id number] [facility], [address] [address] 10/05/2014 14:28:16 10/09/2014 11:24:15 Corneal infection 464753241 improving Add tobradex QID and use ointment at night F/U Thursday or sooner prn [id number] Stephen Leach, OD [facility], [facility] [address] [facility] [address] 10/09/2014 15:11:16 10/10/2014 13:33:16 Corneal infection 517739197 improving Cntinue tobradex QID x 4 more days and use ointment at night Continue art tears 6x/day especially after finishing tobradex F/U 1 week or sooner prn [id number] [facility], [address] [place] [address] 10/17/2014 15:09:13 10/18/2014 07:06:01 Corneal infection 137068820 Resolved with residual scarring inferiorly Continue Art tears on a regular basis and d/c erythromyc in erin [id number] Rheumatol alberto, [facility] [address] [place] [address] 11/21/2014 15:59:07 11/22/2014 07:47:51 Rheumatoid arthritis 13170719 This patient has seropositi ve, CCP positive rheumatoid arthritis . Last year, flare up related to stopping Plaquenil. Continue current 300mg/d indefinite ly. Today some pain and possible mild swelling at R foot 2d, 3d MTPs. This could be part of RA, but I do not feel we should add new therapy at the moment. She can boost dose of Advil a little. Will give MT pad to help with sx's. I will need to see her soon if there is advancing sx's. otherwise, RV 6 mo. Up to date on eye exams. Tendinitis of finger 618946255 flexor tenosynovi tis R 2d and 3d fingers with trigger phenom. This has persisted for a couple of months. Try local inj today. Foot pain 99954513 R melody t 2d and 3 MTP pain. Possible mild synovitis. Does not describe any burning pain one might see with neuroma. Provided with metatarsal mound to off load joints. Seemed helpful. To take higher dose Advil few days. If persisting sxs then needs re-eval. [id number] Aquiles Delgado NP FP, [facility], OFFICE [address] [place] [address] 01/01/2015 15:04:17 01/01/2015 15:48:25 Active or passive immunization [id number] Z23 Adult heal th examination 668108846 Z00.00 see Risk Assessment and Lifestyle Change Counseling section above [facility] pap 12/13 Immunizati ons UTD Flu today Acquired hypothyroidism 793088565 E03.9 TSH 1.74 asymptomat ic Rheumatoid arthritis 698 66878 M06.9 Stable on hydroxychl oroquine. Followed by Dr. Ortiz. [id number] Shahid Ortiz MD [place] [facility] [address] [place] [address] 05/22/2015 16:00:23 05/23/2015 07:26:16 Rheumatoid arthritis 74049245 M06.9 This patient has seropositi ve, CCP positive rheumatoid arthritis . Plaquenil partially effective. Today, however, definte synovitis MCP's and probably having intermitte nt synovitis ankles and feet. Discussed options. She is CCP positive, at risk for erosive disease. Will check x ray hands for baseline . Add MTX 12.5 mg/wk. . Use of methotrexa te discussed in detail including potential side effects, possible adverse effects of alcohol, need for regular lab monitoring . Provided patient with literature . No known history of hepatitis B or hepatitis C. Baseline labs and chest x-ray will be checked. Coninue HCQ and advil. I will want to see her in f/u 4 weeks, update labs then. Up to date on eye exams. [id number] Aquiles Delgado NP , [facility] [place] [address] [place] [address] 05/23/2015 15:31:44 05/23/2015 16:22:05 Anemia 945192634 D64.9 H/H 5.8/21 feeling well- denies fatigue, black stools. hx of JERONIMO will check labs, stool below start iron 325 mg tid with acid (orange juice) repeat 4 weeks call with any worsenin sxs Mammography abnormal 168 279065 R92.8 nodular density seen in R breast U/S scheduled for 05/31/15 Rheumatoid arthritis 698 [address]06[address] Ortiz. some improvment with plaquenil but intermitte nt synovitis in hands/feet has hand XRAY schedule starting mTx [id number] Travis Doan , [facility] [place] [address] [address] [place] [address] 06/22/2015 15:52:46 06/25/2015 09:53:31 Anemia 140499426 D64.9 doing well with iron 3x day due for labs- will do today stool test neg RF of iron today [id number] Shahid Ortiz MD Rheumatol [address] [address] 07/03/2015 15:59:54 07/03/2015 16:25:56 Rheumatoid arthritis 98108767 M06.9 This patient has seropositi ve, CCP positive rheumatoid arthritis . Plaquenil partially effective. Today, however, definte synovitis MCP's and probably having intermitte nt synovitis ankles and feet. Discussed options. She is CCP positive, at risk for erosive disease. I reviewed hand x rays with her. These were normal. MTX started May 2015. Tolerating fine. It seems very useful. There is some residual limitaiton hands, but no signs of active synovitis. Continue MTX, boost dose to 17.5 mg/wk. Continue folate. Check labs on MTX. Return for re-eval 2 mo. . Long-term drug therapy 664134808 Z79.899 No problems on MTX. Monitor lab. I made sure she understood to continue on folic acid. Anemia 238027963 D64.9 Iron deficiency anemia, microcytos is. Discovered this at last visit. On iron supplement s, tolerating . HCT and MCV significan tly improved. Continue iron. [id number] Shahid Ortiz MD Rheumatol [address] [address] 10/12/2015 15:59:44 10/15/2015 07:31:40 Rheumatoid arthritis 82907405 M06.9 This patient has seropositi ve, CCP positive rheumatoid arthritis since 2011 . Plaquenil initially quite effective, but since early 2015, disease more active. Started MTX May 2015 and dose increased last time. Now having unacceptab le hair loss, and despite the MTX, increase in sxs. Discussed options. With + CCP and advancing sxs despite MTX, I feel she is appropriat e for adding TNF agent. Need to check PPD first. Instructed to hold MTX for 3 weeks (hair loss), then resume at lower dose of 12.5/wk with folate and add leucovorin . Prednisone 10 mg/d for symptom control, but stop this when she starts Enbrel. Initiate PA for Enbrel. 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 Check labs. Hold MTX then resume at lower dose + leucovorin . [id number] Shahid Ortiz MD [place] [facility] [place] [address] [place] [address] 10/16/2015 15:36:53 11/02/2015 07:29:18 Rheumatoid arthritis 99164911 M06.9 Check PPDDicusse d Enbrel Initiate PA for Enbrel. Tuberculos is screening 351740830 Z11.1 [id number] Shahid Ortiz MD Rheumatol og, [address] [place] [address] 10/18/2015 15:22:55 10/18/2015 15:48:53 Rheumatoid arthritis 60615034 M06.9 This patient has seropositi ve, CCP positive rheumatoid arthritis since 2011 . Plaquenil initially quite effective, but since early 2015, disease more active. Started MTX May 2015 and dose increased last time. Now having unacceptab le hair loss, and despite the MTX, increase in sxs. At recent we had decided to start Enbrel. However + PPD. Could possibly be BCG vaccine, but probably no way to be sure. I do not want added risk of anti-tb treatment, at least for now. Discussed options. With + CCP and advancing sxs despite MTX + Plaquenil needs additional agent. No know sulfa allergy. Patient will begin sulfasalaz ine. Medication discussed in detail. Potential for side effects including, particular ly, potential for allergic reaction. On rare occasions this can be very serious. Patient instructed to discontinu e the medication immediatel y for any suspected allergy. Other side effects reviewed including headache, malaise, and GI upset. Follow-up 10 days and blood count at that visit. Written instructio ns and warnings. . . 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 Recent neg CXR. No need to repeat.Charlie shay discuss to Primary Care. Will NOT give anti-TNF treatment at present. At age 40, I am not sure whether she should be treated with INH. In any event, I would try to wait until her RA treatment has stabilized before adding anti-TB treatment. If we cannot get her RA under adequate control and need biologic, would need to start TB treatment and then add the anti-TNF etc. 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 hx of tubal ligation. check tsh to make sure that is not contributi ng. ibuprofen for breast pain prn. follow up if symptoms persist or worsen. Irregular periods 565215 07 N92.6 Acquired hypothyroidism 248863931 E03.9 a year since last TSH. if dysregulat ed it could lead to irregular menses? Pain in pelvis 92027374 R10.2 rule out ovarian cyst with pelvic pain present x 1-2 months [id number] Aquiles Delgado NP , [facility] [place] [address] [place] [address] 03/12/2016 15:04:20 03/12/2016 15:35:10 Acquired hypothyroidism 196415924 E03.9 TSH last 3.15 12/2015wil l recheck Anemia 274947363 D64.9 CBC 11/2105 Rheumatoid arthritis 698 [address] Ortiz.take s prednisone 10 mg qddoing well with that Adult heal th examination 267279100 Z00.00 see Risk Assessment and Lifestyle Change Counseling section aboveHM: Mammo 05/2015Pap 11/2013 Counseling 801933087 Z71 .9 Breast tenderness 518387 07 N64.4 normal breast examlikely r/t period as sxs are improvingw ill c/t monitor and let me know if persistsdu e for mammo 04/2016 [id number] Shahid Ortiz MD Rheumatol [address] [place] [address] 05/16/2016 13:20:08 05/19/2016 07:33:21 Rheumatoid arthritis 63679595 M06.9 This patient has seropositi ve, CCP positive rheumatoid arthritis since 2011 . Plaquenil initially quite effective, but since early 2015, disease more active. MTX caused hair loss and was ineffectiv e. Intolerant of SSZ. Only treatment past 6 mo prednisone . She missed f/u appt. We had decided to start Enbrel. However + PPD. I did not want added risk of anti-tb treatment. I have suggested trial on leflunomid e. I discussed Leflunomid e, the potential for side effects including, but not limited to, diarrhea, rash, inflammati on of the liver. I emphasized need for monitoring labs and I explained that taking cholestyra mine might be necessary in the event of any serious side effect.Sta rt 20 qod and increase to 20 qd. Explained improtant to return 4 weeks for blood tests and re-evaluat ion. Likely Vit D defic. Check labs. Reduce prednisone to 7.5 mg/d. Vitamin D deficiency 347 71439 E55.9 Check level. Long-term current use of steroid 352722752 Z79.52 Will be trying to reduce dose. Discussed side effects. [id number] Shahid Ortiz MD Rheumatol [place], [address] [place] [address] 06/20/2016 15:46:28 06/23/2016 07:31:54 Rheumatoid arthritis 63620903 M06.9 This patient has seropositi ve, CCP positive rheumatoid arthritis since 2011 . Plaquenil initially quite effective, but since early 2015, disease more active. MTX caused hair loss and was ineffectiv e. Intolerant of SSZ. Only treatment past 6 mo prednisone . She missed f/u appt. We had decided to start Enbrel. However + PPD. I did not want added risk of anti-tb treatment. Now on LEF and still prednisone at ~ 7.5mg/d. Some global improvemen t but active synovitis L wrist. Will inject L wrist today.Advi sed reduce prednisone to 5 mg daily (may take rare dose of 7.5 if having bad day). Re-eval in 2 mo. Likely Vit D defic. Check labs. Vitamin D deficiency 347 21697 E55.9 Prior hx defic. Not taking supplement . Check level. Long-term drug therapy 256996143 Z79.899 . Patient is on long-term leflunomid e. Reviewed recent labs. No signs or symptoms of toxicity. Tolerating well. Continue monitor labs. 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 Plaquenil initially quite effective, but since early 2015, disease more active. MTX caused hair loss and was ineffectiv e. Intolerant of SSZ.We had decided to start Enbrel. However + PPD. I did not want added risk of anti-tb treatment. Now on LEF and still prednisone at 5mg/d.Redu ce LEF dose slightly to 20 mg 6 days per week.Re-ev al in 3 mo Vitamin D deficiency 347 92814 E55.9 Recent level 20. Now taking 2000 iu/d. Instructed to continue indefinite ly. Long-term drug therapy 428574535 Z79.899 . Patient is on long-term leflunomid e. Reviewed recent labs. No signs or symptoms of toxicity. Tolerating well except some hair loss.Advis ed reducing dose slightly: 20 mg 6 days per week.Ciara nue monitor labs. Pain in elbow 78128283 M 25.521 Seems to localize as R lateral epicondyli tis. I see no active synovitis at elbow. Not severe enough to warrant injection. could try tennis elbow band. If persisting , could do PT or return for injection. [id number] Madeline Ochoa PA-C , [facility] [place] [address] [place] [address] 11/14/2016 14:51:45 11/17/2016 08:31:53 Mass of axilla 986695946 R22.2 NO mass or LAD of R axilla appreciate d on exam.Reass urance given. [id number] , [facility] [place] [address] [place] [address] 03/13/2017 10:53:10 03/13/2017 11:33:38 Acquired hypothyroidism 784079630 E03.9 TSH last 2.64 03/2017good c/w levothyrox ine 50 mcg ad Long-term drug therapy 877679121 Z79.899 on daily prednisone for RAfollowed by Dr Ortiz Anemia 036526550 D64.9 was not checked with labswill do today Rheumatoid arthritis 698 [address]06[address] Ortiz.take s prednisone 10 mg qddoing well with that Adult heal th examination 054251477 Z00.00 see Risk Assessment and Lifestyle Change Counseling section aboveHM: Pap todayMammo due in May Counseling 132700673 Z71 .9 Screening for malignant neoplasm of cervix 673478090 Z12.4 [id number] Shahid Ortiz MD Rheumatol ogy, [facility] [address] [facility] [place] [address] 04/20/2017 15:44:44 04/20/2017 16:10:56 Rheumatoid arthritis 42714622 M06.9 This patient has seropositi ve, CCP positive rheumatoid arthritis since 2011 . Plaquenil initially quite effective, but since early 2015, disease more active. MTX caused hair loss and was ineffectiv e. Intolerant of SSZ.We considered Enbrel. However + PPD. I did not want added risk of anti-tb treatment. She was meant to be on LEF, but ran out and did not renew. Only med is prednisone 5 mg. Told her I was not in favor of her staying of prednisone as sole treatment, and besides, she has some inflammato ry sxs and findings today (especiall y feet). Resume LEF 20/d. Continue prednisone 5 mg/d until next visit, then likely taper. Re-eval in 3 moCheck labs next visit. Vitamin D deficiency 347 97778 E55.9 Recent level 20. Now taking 2000 iu/d. Instructed to continue indefinite ly.Re-chec k level in 2 mo. Long-term drug therapy 753747259 Z79.899 . Patient is meant to be on long-term leflunomid e. Tolerating well except some hair loss. Continue monitor labs. Predniosne : only 5 mg/d and hope to taper. On calcium and Vit D. 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 Order Off label 10% N- acetylcyst eine [id number] Shahid Ortiz MD Rheumatol ogy, [facility] [address] [place] [address] 02/16/2018 13:01:51 02/16/2018 13:30:31 Rheumatoid arthritis 13135368 M06.9 This patient has seropositi ve, CCP positive rheumatoid arthritis since 2011 . Plaquenil initially quite effective, but since early 2015, disease more active. MTX caused hair loss and was ineffectiv e. Intolerant of SSZ.We considered Enbrel. However + PPD. I did not want added risk of anti-tb treatment. She has tried LEF twice, but never returned for follow up, so hard to computer processing scheduler is any benefit. She thinks not, but I am unsure. Only med is prednisone 5 mg. At one time Plaquenil very helpful. Has not taken for about 2 years.Re-s tart Plaq 200 mg bid (dose a little high based on weight. will reduce dose if she responds. Continue prednisone 5/d, but discussed that ideally we would try to taper it at next visit. Check labs Iron defic iency anemia 71688402 D50.9 Significan t Fe defic last Mar. Says taking iron, but has not been re-checked . Mantoux: positive 297583 005 R76.11 17 mm skin test 2015. neg CXR.If we cannot get her RA under adequate control and need biologic, would need to start TB treatment and then add the anti-TNF etc. [id number] Shahid Ortiz MD [place] [facility] [place] [facility] [address] [facility] [place] [address] 06/07/2018 15:56:21 06/10/2018 06:15:04 Rheumatoid arthritis 60281580 M06.9 This patient has seropositi ve, CCP positive rheumatoid arthritis since 2011 . Plaquenil initially quite effective, but since early 2015, disease more active. MTX caused hair loss and was ineffectiv e. Intolerant of SSZ.We considered Enbrel. However + PPD. I did not want added risk of anti-tb treatment. She has tried LEF twice, but never returned for follow up, so hard to computer processing scheduler is any benefit. She thinks not, but I am unsure.Pas t 3-4 mo on Plaquenil. I had prescribed BID, but she is only taking one per day. Only other med is prednisone 5 mg. Will treat R wrist with local injection, but also check x ray and compare to 2016. If any erosive disease will need to consider Biologic (despite hx + PPD). Return 2 mo. Wrist joint effusion 202 896106 M25.432 Persistent synovitis R wrist.: injection todayPrior synovitis L and this responded well to local injeciton. Long-term drug therapy 769400321 Z79.899 .On Plaquenil. Due for eye exam in July.Tanja en darrell ns to be sure they know she is on Plaquenil. Predniosne : only 5 mg/d and hope to taper. On calcium and Vit D. Vitamin D deficiency 347 66193 E55.9 Now supposed to be taking 2000 iu/d. Instructed to continue indefinite ly.Re-chec k level at next visit. [id number] Aquiles Delgado NP FP, [facility] [place] [address] [place] [address] 11/08/2018 13:51:04 11/08/2018 16:02:05 Long-term drug therapy 546916117 Z79.899 on daily prednisone and plaquenil for RAfollowed by Dr Ortiz Acquired hypothyroidism 032836014 E03.9 TSH last 2.64 03/2017need s labsc/w levothyrox ine 50 mcg ad Anemia 159903367 D64.9 will do lab Rheumatoid arthritis 698 [address]06[address] Ortiz.take s prednisone 5 mg qd and plaquenild oing well with that Adult heal th examination 276737888 Z00.00 see Risk Assessment and Lifestyle Change Counseling section aboveHM: Pap 03/2017Mamm o Counseling 580973511 Z71 .9 [id number] Shahid Ortiz MD Rheumatol og, [facility] [address] [place] [address] 02/07/2019 15:46:02 02/08/2019 06:25:43 Rheumatoid arthritis 11024364 M06.9 This patient has seropositi ve, CCP positive rheumatoid arthritis since 2011.Reass uring that even after 8 years, no erosive disease or significan t x ray changes hands or wrists.Kristi quenil initially quite effective, but since early 2015, disease more active. MTX caused hair loss and was ineffectiv e. Intolerant of SSZ.We considered Enbrel. However + PPD. I did not want added risk of anti-tb treatment. She has tried LEF twice, but never returned for follow up, so hard to computer processing scheduler is any benefit. She thinks not, but I am unsure.Pas t several mo on Plaquenil. I had prescribed BID, but she is only taking one per day. Only other med is prednisone 5 mg. Today presents with inflammati on at two sites, R shoulder and R ankle. Discussed options again. Will treat with local injection R subacromia l bursa, should see some generalize d improvemen t with steroid systemic absorption .Defer injection R ankle for now. Advised increasing Plaquenil to 1/5/d. Says up to date on Plaquenil eye exams. If R ankle no better 2-3 wks, return for injection. Bursitis o f right shoulder [id number] 89125 M75.51 Painful arc, impingemen t signs.Loca l injection today. Ankle joint effusion 202 355470 M25.471 Synovitis at R ankle. Not injected today. She might get some systemic effect from R shoulder injection. However, if not improved, should come back 2-3 weeks for local injeciton. [id number] Shahid Ortiz MD Rheumatol [address] [place] [address] 03/29/2019 15:41:19 03/31/2019 14:19:14 Rheumatoid arthritis 94528851 M06.9 This patient has seropositi ve, CCP positive rheumatoid arthritis since 2011. Plaquenil initially quite effective, but since early 2015, disease more active. MTX caused hair loss and was ineffectiv e. Intolerant of SSZ.We considered Enbrel. However + PPD. I did not want added risk of anti-tb treatment. She has tried LEF twice, but never returned for follow up, so hard to computer processing scheduler is any benefit. She thinks not, but I am unsure. Past several mo on Plaquenil. Only other med is prednisone 5 mg. Today presents with inflammati on at two sites, L wirst and R ankle.Has diminished ROM L wrist. Needs update xray L hand and wrist. R ankle remains symptomati c. Will inject today. Discussed options again. She would benefit from Biologic at this point, but hx of + PPD. Will check quantifero n gold to make sure this isn't a false +. If true positive, will need to consider starting anti-TB treatment, then initiating Biologic. Says up to date on Plaquenil eye exams. Ankle joint effusion 202 718992 M25.471 Synovitis at R ankle. Injected today. Mantoux: positive 696087 005 R76.11 17 mm skin test 2015. neg CXR. Check quantifero n gold If we cannot get her RA under adequate control and need biologic, would need to start TB treatment and then add the anti-TNF etc. [id number] Shahid Ortiz MD Rheumatol [place], [address] [place] [address] 05/23/2019 16:00:43 05/24/2019 14:31:00 Rheumatoid arthritis 92070430 M06.9 This patient has seropositi ve, CCP positive rheumatoid arthritis since ~2007. Plaquenil initially quite effective, but since early 2015, disease more active. MTX caused hair loss and was ineffectiv e. Intolerant of SSZ.She has tried LEF twice, but never returned for follow up, so hard to computer processing scheduler is any benefit. She thinks not, but I am unsure. Past several mo on Plaquenil. Only other med is prednisone 5 mg. Discussed options again.Gerardo cortez, she would benefit from Biologic at this point. There is hx of + PPD, but quantifero n gold is NEGATIVE. Perhaps she received BCG??With the current brady pandemic, I do not wish to start her on Biologic now, but in 3 months or so, should return and consider this. In the meantime, continue plaquenil + prednisone 5/d. Says up to date on Plaquenil eye exams. Mantoux: positive 597649 005 R76.11 17 mm skin test 2015. neg CXR. Quantifero n gold NEGATIVE (03/29/19). False + PPD. [id number] Shahid Ortiz MD [place] [facility] [place] [facility] [address] [facility] [place] [address] 07/29/2019 10:17:35 07/29/2019 14:45:02 Rheumatoid arthritis 24570058 M06.9 This patient has seropositi ve, CCP positive rheumatoid arthritis since ~2007. Plaquenil initially quite effective, but since early 2015, disease more active. MTX caused hair loss and was ineffectiv e. Intolerant of SSZ.She has tried LEF twice, but never returned for follow up, so hard to computer processing scheduler is any benefit. She thinks not, but I am unsure. Past several mo on Plaquenil. Only other med is prednisone 5 mg. Discussed options again.At this point, I think we need to add a Biologic.D iscussed /Humira. Specifical ly discussed risks of infection, potentiall y serious, low but definite risk of lymphoma. There is hx of + PPD, but quantifero n gold is NEGATIVE. Therefore FALSE POSITIVE PPD. Perhaps she received BCG??Start Humira after prior authorizat ion. Needs to return for instructio n in injection. In the meantime, continue plaquenilI ncrease prednisone to 20 mg po qd as bridging therapy . Overdue for Plaquenil eye exams (but limitation related to pandemic). Note to reviewers: Prior meds: Plaquenil 2011 to present: ineffectiv eMTX 05/2015 - 12/2015 Intolerant (hair loss, GI)Sulfasa lazine 12/2015 intolerant Leflunomid e 2018 and 2019: ineffectiv e. [id number] Shahid Ortiz MD Rheumatol [place], [address] [place] [address] 09/09/2019 08:06:46 09/09/2019 13:03:55 Rheumatoid arthritis 77759769 M06.9 This patient has seropositi ve, CCP positive rheumatoid arthritis since ~2007. Plaquenil initially quite effective, but since early 2015, disease more active. MTX caused hair loss and was ineffectiv e. Intolerant of SSZ.She has tried LEF twice, but never returned for follow up, so hard to computer processing scheduler is any benefit. She thinks not, but I am unsure. Past several mo on Plaquenil. Only other med is prednisone 5 mg. 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 Continue plaquenilB egin to taper prednisone : 12.5 fr 1 week, 10 for 2 weeks, then 7.5 until next visit 4 - 6 weeks. Overdue for Plaquenil eye exams (but limitation related to pandemic). Check labs at next visit. Note to reviewers: Prior meds: Plaquenil 2011 to present: ineffectiv eMTX 05/2015 - 12/2015 Intolerant (hair loss, GI)Sulfasa lazine 12/2015 intolerant Leflunomid e 2018 and 2019: ineffectiv e. Bilateral knee pain [id number] M25.561 M25.562 Bilat knee pain. Had been schedued for bilat injection, but much improved on prednisone , and she is starting Humira today.I think we can safely hold off on knee injections . Long-term drug therapy [id number] Z79.899 .On Plaquenil. Due for eye exam in July but postpone b/o papndemic. Written instructio ns to be sure they know she is on Plaquenil. Predniosne 15 mg/d and hope to taper. On calcium and Vit D. [id number] Shahid Ortiz MD Rheumatol alberto, [address] [place] [address] 10/18/2019 10:46:28 10/21/2019 14:58:39 Rheumatoid arthritis [id number] M06.9 This patient has seropositi ve, CCP positive rheumatoid arthritis since ~2007. Plaquenil initially quite effective, but since early 2015, disease more active. MTX caused hair loss and was ineffectiv e. Intolerant of SSZ.She has tried LEF twice, but never returned for follow up, so hard to computer processing scheduler is any benefit. She thinks not, but I am unsure. Current meds Plaquenil, prednisone 5, and Humira. Overdue for Plaquenil eye exams (but limitation related to pandemic). Check labs taper prednisone by 1 mg every 3 weeks. Note to reviewers: Prior meds: Plaquenil 2011 to present: ineffectiv eMTX 05/2015 - 12/2015 Intolerant (hair loss, GI)Sulfasa lazine 12/2015 intolerant Leflunomid e 2018 and 2019: ineffectiv e. [id number] Aquiles Delgado NP , [facility] [place] [address] [place] [address] 01/31/2020 15:21:57 02/02/2020 08:09:01 Adult health examination 473441877 Z00.00 see Risk Assessment and Lifestyle Change Counseling section aboveHM: Pap 03/2017Mamm o 08/2018- needs annual d/t family hx - scheduled 04/2020 Counseling 140318230 Z71 .9 including cardiovasc ular risk reduction counseling Screening for alcohol abuse 071088986 Z13.39 neg audit Acquired hypothyroidism 016918776 E03.9 TSH last 1.0611/201 0c/w levothyrox ine 50 mcg ad Long-term drug therapy 944079037 Z79.899 on daily prednisone and plaquenil and humira for RAfollowed by Dr Ortiz Anemia 640544260 D64.9 cbc wnlno anemia Rheumatoid arthritis 698 00365 M06.[address] Ortiz.take s prednisone 5 mg qd and plaquenilh umira q 2 weeksdoing well with that Hyperglycemia 46260216 R 73.9 bs 147will repeat fasting [id number] Shahid Ortiz MD Rheumatol alberto, [facility] [address] [facility] [place] [address] 02/17/2020 10:25:55 02/20/2020 06:52:52 Rheumatoid arthritis 22690737 M06.9 This patient has seropositi ve, CCP positive rheumatoid arthritis since ~2007. Plaquenil initially quite effective, but since early 2015, disease more active. MTX caused hair loss and was ineffectiv e. Intolerant of SSZ. She has tried LEF twice, but never returned for follow up, so hard to computer processing scheduler is any benefit. She thinks not, but I am unsure. Current meds Plaquenil, prednisone 5, and Humira. Reduce prednisone to 2.5 mg/d. Continue Plaquenil (overdue for eye exam, but reluctant b/o pandemic. OK for now.) Continue Humira. RV 3 mo. Note to reviewers: Prior meds: Plaquenil 2011 to present: ineffectiv e MTX 05/2015 - 12/2015 Intolerant (hair loss, GI) Sulfasalaz ine 12/2015 intolerant Leflunomid e 2018 and 2019: ineffectiv e. Hyperglycemia 47394080 R 73.9 Recent finding of HgbA1c = 6.9. Primary care is aware. Pt with no sxs. Told her that tapering off prednisone woud be helpful for blood sugar. Long-term drug therapy 504139480 Z79.899 .On Plaquenil. Due for eye exam in July but postpone b/o papndemic. Written instructio ns to be sure they know she is on Plaquenil. Predniosne low dose, trying to taper. [id number] Shahid Ortiz MD Rheumatol ogy, [facility] [address] [facility] [place] [address] 06/01/2020 09:01:33 06/04/2020 06:38:56 Rheumatoid arthritis 03461884 M06.9 This patient has seropositi ve, CCP positive rheumatoid arthritis since ~2007. Current meds Plaquenil, prednisone 2.5 mg/d, and Humira. Instructed to reduce Plaquenil to 200 mg/d. Discussed needs to schedule eye exam. (Had been reluctant during pandemic). Continue Humira. Continue prednisone for now, but perhaps discontinu e after next visit. RV 4 mo. (Dr Brumfield) Note to reviewers: Prior meds: Plaquenil 2011 to present: ineffectiv e MTX 05/2015 - 12/2015 Intolerant (hair loss, GI) Sulfasalaz ine 12/2015 intolerant Leflunomid e 2018 and 2019: ineffectiv e. [id number] Aquiles Delgado, [place] , [facility] [place] [address] [place] [address] 07/24/2020 13:16:28 07/24/2020 14:03:03 Acquired hypothyroidism 618986704 E03.9 TSH 4.0 not taking in am on empty stomach asymptomat ic will take in am- repeat in 8 weeks c/w levothyrox ine 50 mcg ad Screening for malignant neoplasm of cervix 552417724 Z12.4 Rheumatoid arthritis 698 45297 M06.[address] 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 Plaquenil initially quite effective, but since early 2015, disease more active. MTX caused hair loss and was ineffectiv e. Intolerant of SSZ. Failed leflunomid e. Current meds Plaquenil, prednisone 5 mg, and Humira. Continue plaquenil and Humira.Sto p prednione as patient states that she is not taking it every day.Patien t's compliance is questionab le.Conside r stopping Plaquenil next visit after in office visit. Patient got the flu shot and COVID booster.Ar range for PCV-13. Check labs.RTC in 3 months. [id number] Carlos [place] MD [place] [facility] [place] [facility] [address] [place] [address] 08/19/2021 14:04:31 08/19/2021 14:37:40 Rheumatoid arthritis 88179062 M06.9 This patient has seropositi ve, CCP positive rheumatoid arthritis since ~2007. Plaquenil initially quite effective, but since early 2015, disease more active. MTX caused hair loss and was ineffectiv e. Intolerant of SSZ. Failed leflunomid e. Current meds Plaquenil, prednisone 5 mg, and Humira. Continue plaquenil and Humira.Beronica rt coursePati ent's compliance is questionab le. Patient got the COVID series. CounsArran ge for PCV-13. Check labs before next visit.RTC in 4 months. Microcytic anemia 692785 007 D50.9 Start Iron.Will give one month supply till she sees her pcp.Work-u p for iron deficiency anemia per PCP> [id number] Aquiles Delgado NP , [facility] [place] [address] [place] [address] 09/06/2021 15:49:39 09/06/2021 16:25:14 Adult health examination 038701076 Z00.00 see Risk Assessment and Lifestyle Change Counseling section aboveHM: Pap07/25/19 21Mammo 2Colo due- referral submitted Counseling 922514866 Z71 .9 including cardiovasc ular risk reduction counseling Depression screening 171 530278 Z13.31 depression screening tool administer ed, entered into emr, scored and discussed, time greater than 7.5 minutes Screening for alcohol abuse 467640678 Z13.39 neg audit Rheumatoid arthritis 698 77513 M06.[address] Ortiz now Dr. Brumfield on humira q 2 weeks doing well with that Acquired hypothyroidism 613366622 E03.9 TSH 4.94 not taking in am on empty stomach asymptomat ic will take in am- repeat in 8 weeks c/w levothyrox ine 50 mcg ad Long-term drug therapy 208514207 Z79.[address]ira for RAfollowed by Dr Brumfield Anemia 066233359 D64.9 cbc with ironRF sent Screening for malignant neoplasm of colon 202349707 Z12.11 Hyperglycemia 13999520 R 73.9 bs 141will repeat in k on diet with less carbs, sugars [id number] Aquiles Delgado NP , [facility] [place] [place] [address] [place] [address] 12/03/2021 16:46:35 12/11/2021 12:07:24 Active or passive immunization 348027730 Z23 Hyperglycemia 37064759 R 73.9 bs 141, 1 84- not fastingwil l repeat with X7Gelet on diet with less carbs, sugarsf/u with results Iron deficiency 33997215 E61.1 h/h is good no anemiairon stores a bit low at 4asymptoma ticc/w daily iron supplement Rheumatoid arthritis 698 34770 M06.[address] Brumfield on humira q 2 weeks doing well with that [id number] Aquiles Delgado NP , [facility] [place] [address] [place] [address] 03/11/2022 15:58:07 03/11/2022 16:38:27 Rheumatoid arthritis 32809888 M06.9 stable was followed by Dr. Brumfield on humira q 2 weeks doing well [facility] Rheumwill [facility] to scheduledr . aristeo will manage until establishe d with other Rheum Acquired hypothyroidism 299663151 E03.9 TSH 1.44 10/2021 asymptomat ic c/w levothyrox ine 50 mcg ad Long-term drug therapy 823837798 Z79.899 humira for RAwas followed by Dr Morgan rred to new Rheum- Dr. Ortiz will cover in interim Anemia 826986254 D64.9 cbc with ironRF sent Active or passive immunization 129825724 Z23 Impaired f asting glycemia 186022758 R73.01 better at 99a1c 6.5c/t keep diet low in sugar, carbs, c/w regular exercise [id number] Carlee Kennedy MD , [facility] [place] [place] [address] [place] [address] 10/23/2022 15:37:19 10/23/2022 16:26:05 Adult health examination 820822443 Z00.00 USPSTF guidelines reviewed and discussed with patient, labs UTD, vaccines UTDPap07/24, 5 year repeat recommende d, normal breast exam todayMammo 07/16/22 normalColo , feb 18, 2022, need to get results Depression screening 171 697070 Z13.31 depression screening tool administer ed Screening for alcohol abuse 004795946 Z13.39 Alcohol use screening tool administer ed Acquired hypothyroidism 942560342 E03.9 TSH 4.65 on 09/03/22, feels well. Will repeat lab in 3 months. asymptomat ic c/w levothyrox ine 50 mcg ad Long-term drug therapy 799470276 Z79.899 Visited rheumatolo gist this past week, 5 mg prednisone , humira (every other week) Anemia 373715314 D64.9 09/03/22 labs normal Active or passive immunization 077610544 Z23 Prediabetes 315974780 R7 3.03 - patient would like to try 3 months of increased exercise/d iet modificati on prior to starting metformin; follow-up in 3 months, will check fasting glucose, a1c Liver enzy mes level above reference range 342082024 R74.01 - does take tylenol most days, advised to cut back; this could also be due to elevated blood sugar.- labs prior to next visit, possibly [place] [id number] Carlee Kennedy MD , [facility] [place] [place] [address] [place] [address] 01/28/2023 16:33:08 01/28/2023 17:17:13 Prediabetes 665185916 R73.03 - a1c (6.8 to 6.4) improved since implementi ng diet and exercise since wellness visit in August. Endorses feel much better physically . Will recheck labs in 3 months.- Encouraged to continue dietary and exercise modificati ons. Alkaline p hosphatase above reference range 215738119 R74.8 - history of elevated alk phos, will check GGT to localize bone vs billary Rheumatoid arthritis 698 83385 M06.9 - continue humira at directed, denies current joint pain [id number] JOHN PRADHAN PA-C , [facility] [place] [place] [address] 04/27/2024 13:22:30 04/27/2024 17:17:59 Adult health examination 129158417 Z00.00 USPSTF guidelines reviewed and discussed with patient, labs UTD, vaccines UTDPap 07/24/2020, 5 year repeat recommende d, normal breast exam todayMammo 08/2023, yearly; sister with breast CA in her 30's.[place], feb 18, 2022 @[facility]. Pt reports this was normal. Results requested. Never a smoker. Works in morning at [employer]. Lives in [place], 2 children (adult), live w/ her. Feels safe at home. Exercise limited, diet regular. Depression screening 171 633955 Z13.31 depression screening tool administer ed. neg. Screening for alcohol abuse 584151603 Z13.39 Alcohol use screening tool administer ed. neg. Influenza vaccination declined 683544737 Z28.21 Pt declines annually 04/27/24 JCW Vaccination not done 069 8272712 9108 Z28.29 Patient delaying the Pneumococc al and Shingles vaccines at this time. 04/27/24 JCW Rheumatoid arthritis 698 35456 M06.9 Continue humira u0arvog. Follows with [facility] q[facility] months. Anemia 309582213 D64.9 09/03/22 labs normalStil taking ironPeriod ically monitor Acquired hypothyroidism 535013044 E03.9 asymptomat ic c/w levothyrox ine 50 mcg qd. Check labs. Prediabetes 629323009 R7 3.03 A1c (6.8 to 6.4) improved since implementi ng diet and exercise since wellness visit in August 2022.-- monitor, check a1c today Alkaline p hosphatase above reference range 501722203 R74.8 History of elevated alk phos, will check GGT to localize bone vs billaryPT on biologic Health Concerns Section Related Observation LastModified by Organization Detai ls LastModified Time None Recorded Concern Status LastModified by Organization Details LastModified Time None Recorded Advance Directives Directive N: Payers Encounter Date Sequence Insurance Name Policy Number Policy Covarrubias Covered Member ID Covarrubias Member ID Guarantor Name 12/03/2021 1 [facility] [id number] 01 Dorita L L Franco [id number] Dorita Franco 03/11/2022 1 [facility] [id number] Dorita L L Franco [id number] Dorita Franco 10/23/2022 1 [facility] [id number] 01 Dorita L L Franco [id number] Dorita Franco 01/28/2023 1 [facility] [id number] 01 Dorita L L Franco [id number] Dorita Franco 04/27/[address] [place] [address] [id number] 01 Dorita Shay Franco [id number] Doritajame Robbn Notes Date Note Type Note Provider Name and Address Organization Details Recorded Time 2 text/html dortia here for f/u on labsbs was 185- A1c 6.5pt states she was not fastingkeeps diet low in carbs with exception of breaddoes not eat much sweetsfamily hx of DMdenies any increase in thirst, urination, weight losstaking iron daily- energy level is good Aquiles Delgado NP [address] [place] [address], [phone], [facility] 12/03/2021 20:53:36 3 text/html dorita here for f/u on labsfeeling wellrecent URI- still some coughkeeping low carb dietregular exercise Aquiles Delgado NP [address] [place] [address], [phone], [facility] 03/11/2022 16:46:19 3 text/html Physical Exam/FemaleReported bypatient.PHAPatient is here for a Wellness Visit. She describes her health status as good. Patient's health is last year.Risk Assessment and Lifestyle Change Counseling 18-50Reported bypatient.Coronary Artery Disease Risk Assesment:No Family history of coronary artery disease; No personal history of diabetes; No history of peripheral vascular disease, AAA, or carotid disease; No personal history of coronary artery disease Breast Cancer Risk Assessment:Family history of breast cancer one first degree relative; No history of breast cancer or dcis Lung Cancer Risk Assessment:Never smoked; No asbestos exposure Cognitive/Behavioral Risk Assessment:No personal history of mental illness; No family history of mental illness Safety Risk Assessment:No evidence of abuse/neglect Diet:Counseled about eating a diet low in trans and saturated fats and high in fiber, fruits and vegetables; Counseled about appropriate calcium intake and good dietary sources of calcium.; Counseled about the importance of maintaining a positive calcium balance and taking 1000 iu Vitamin D daily.; Discussed the value of a Mediterranean diet, and eating more fruits and vegetables Exercise counseling:Discussed the importance of daily physical activity; Discussed the importance of weight bearing exercise Safety:An audit alcohol screening was performed and scored. Patient was asked about alcohol use. Advised about risks of alcohol and personal risk was assessed. Patient agreed to plan and given information about available resources if needed. Discussion including screening and scoring greater than 7.5 minutes. Family Planning:Using control (tubal ligation)VMG HypothyroidReported bypatient.Duration:chron ic Control:unchanged since last visit; TSH 4.1-5 Compliance:compliant with medications Constitutional:no cold intolerance; no heat intolerance; no weight loss; no weight gain; No tremor; No fast heart rate Carlee Kennedy MD [address] [place] [address], [phone], [facility] 10/28/2022 15:14:26 3 text/html - takes humira for RA; feels better, no joint pain. Not taking prednisone anymore. Carlee Kennedy MD [address] [place] [address], [phone], [facility] 01/28/2023 17:34:31 OBGyn Episode No OBEpisode recorded.
[2024-06-24 15:37] LABS: Alanine Aminotransferase 39 U/L (0-31); Albumin Level 4.2 g/dL (3.5-5.0); Anion Gap 12 (12-20); Aspartate Amino Transferase 31 U/L (5-31); Bilirubin Total 0.2 mg/dL (0.0-1.0); Blood Urea Nitrogen 11 mg/dL (9-16); C Reactive Protein 1.85 mg/dL (< or = 0.50); Calcium 10.9 mg/dL (8.4-10.2); Carbon Dioxide 25 mmol/L (22-29); Chloride 106 mmol/L (96-108); Estimated Glomerular Filt Rate > 60; Glucose Random 133 mg/dL (60-115); Potassium 3.9 mmol/L (3.3-5.1); Sodium 139 mmol/L (135-145); Total Protein 8.1 g/dL (6.5-8.0)
[2024-06-24 15:48] LABS: Erythrocyte Sedimentation Rate 42 MM/HR (0-20)
[2024-06-24 16:00] LABS: Alkaline Phosphatase 157 U/L (39-117)
[2024-06-25 03:39] LABS: HBS Num1 22.42 mIU/mL (0-7.99); HBc Num1 0.17 S/CO (0.00-0.79); HBsAGNum1 0.34 S/CO (0.00-0.99); Hepatitis B Core Antibody Nonreactive (Nonreactive); Hepatitis B Surface Antigen Negative (Negative); ~HepC Num1 0.12 S/CO (0.00-0.79); ~Hepatitis B Surface Antibody REACTIVE (Nonreactive); ~Hepatitis C Antibody Nonreactive (Nonreactive)
[2024-06-27 18:28] LABS: TS Negative Control Passed; TS Panel A 0; TS Panel B 0; TS Positive Control Passed; TSpotTB Negative (Negative)
[2024-06-28 07:51] LABS: Hepatitis A Antibody IgM 0.23 Index (0-0.79); ~Hepatitis A Antibody IgM Nonreactive (Nonreactive)
== END 2024-06-24 14:26 | disposition home or self-care (01) ==
LOC: HO.LAB 14:25
PROVIDERS: PCP Nurse Practitioner Adult Health; Visit Provider Student in an Organized Health Care Education/Training Program
DX: M05.79 Rheumatoid arthritis with rheumatoid factor of multiple sites without organ or systems involvement (principal)
CPT/HCPCS: 36415; 80053; 85025; 85652; 86140; 86481; 86704; 86706; 86709; 86803; 87340

== ENCOUNTER 2024-06-24 14:46 | Emergency (ER) | payer OTHER, SELFPAY ==
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
[2024-06-24 14:53] VITALS: BP 139/95; PULSE 88; RESP 16; TEMP 37.1; O2SAT 98; BMI 21.9
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
[2024-06-24 16:59] VITALS: BP 139/95; PULSE 88; RESP 16; TEMP 37.1; O2SAT 98
== END 2024-06-24 16:59 | disposition home or self-care (01) ==
PROVIDERS: Emergency Provider Emergency Medicine; PCP Nurse Practitioner Adult Health
DX: S16.1XXA Strain of muscle, fascia and tendon at neck level, initial encounter (principal); V43.52XA Car driver injured in collision with other type car in traffic accident, initial encounter; R51.9 Headache, unspecified; M79.18 Myalgia, other site; Y93.89 Activity, other specified; Y92.414 Local residential or business street as the place of occurrence of the external cause; Y99.9 Unspecified external cause status
CPT/HCPCS: 70450; 71046; 72125; 99284

== ENCOUNTER → 2024-06-24 15:00 | Outpatient (BNV) | payer OTHER, SELFPAY | PROVIDERS: Emergency Provider Emergency Medicine; PCP Nurse Practitioner Adult Health; Visit Provider Radiology Diagnostic Radiology | DX: M54.2 Cervicalgia (principal); S09.90XA Unspecified injury of head, initial encounter; S29.9XXA Unspecified injury of thorax, initial encounter; V89.2XXA Person injured in unspecified motor-vehicle accident, traffic, initial encounter | CPT/HCPCS: 70450; 71046; 72125 ==

== ENCOUNTER 2024-12-08 15:41 | Outpatient (REF) | payer OTHER, SELFPAY ==
[2024-12-08 16:15] LABS: MANUAL DIFF FLAG NO
[2024-12-08 17:26] LABS: Hematocrit 36.6 % (37.0-47.0); Hemoglobin 11.6 g/dl (12.0-16.0); Imm Gran Abs Auto 0.02 X10*3/uL (0.00-0.03); Imm Gran Pct Auto 0.3 % (0.0-0.4); Lymphocytes Absolute Auto 2.5 X10*3/uL (1.2-4.9); Mean Corpuscular HGB Conc 31.7 g/dl (31.0-35.0); Mean Corpuscular Hemoglobin 26.8 pg (27.0-33.0); Mean Corpuscular Volume 84.5 fL (80.0-98.0); NRBC Abs Auto 0.000 X10*3/uL (0.0-0.012); NRBC Pct Auto 0.0 /100WBC (0.0-0.2); Platelet Count 338 X10*3/uL (160-400); Red Blood Count 4.33 X10*6/uL (4.20-5.50); White Blood Count 6.4 X10*3/uL (4.8-10.8)
[2024-12-08 18:52] LABS: Alanine Aminotransferase 26 U/L (0-31); Albumin Level 4.2 g/dL (3.5-5.0); Alkaline Phosphatase 143 U/L (39-117); Anion Gap 12 (12-20); Aspartate Amino Transferase 22 U/L (5-31); Blood Urea Nitrogen 9 mg/dL (9-16); Calcium 9.9 mg/dL (8.4-10.2); Carbon Dioxide 28 mmol/L (22-29); Chloride 104 mmol/L (96-108); Estimated Glomerular Filt Rate > 60; Potassium 4.1 mmol/L (3.3-5.1); Sodium 140 mmol/L (135-145); Total Protein 7.6 g/dL (6.5-8.0)
== END 2024-12-08 15:42 | disposition home or self-care (01) ==
LOC: HO.LAB 15:41
PROVIDERS: PCP Nurse Practitioner Adult Health; Visit Provider Student in an Organized Health Care Education/Training Program
DX: M05.79 Rheumatoid arthritis with rheumatoid factor of multiple sites without organ or systems involvement (principal)
CPT/HCPCS: 36415; 80053; 85025; 85652; 86140